=== PATIENT | male | born 1990 | race Caucasian/White ===

== ENCOUNTER 2020-03-09 12:35 | Emergency (ER) | payer BC, SELFPAY ==
--- NOTE | ~2020-03-09 | XR_ITS ---
EXAMINATION: XR sinus min 3V EXAM DATE: 03/09/2020 13:07 INDICATION: Cold for 2 weeks, congestion. TECHNIQUE: Frontal, Jose's, lateral projections of the paranasal sinuses. There is no prior study for comparison. FINDINGS: Possible mild bilateral maxillary sinus mucoperiosteal thickening. The other sinuses are we ll aerated. No appreciable sinus fluid. Orbits and soft tissues are unremarkable. IMPRESSION: Possible mild bilateral sinus mucoperiosteal thickening, otherwise sinuses appear well-a erated. Reviewed, dictated and finalized at location A. E FEDERAL RELATIONS DEPUTY DIRECTOR IMPRESSION: Possible mild bilateral sinus mucoperiosteal thickening, otherwise sinuses appear well-aerated.
--- NOTE | ~2020-03-09 | XR_ITS ---
EXAMINATION: XR chest 2V EXAM DATE: 03/09/2020 13:06 INDICATION: Congestion for 2 weeks. TECHNIQUE: Frontal and lateral projections of the chest obtained and reviewed. There is no prior bogdan dy for comparison. FINDINGS: Left upper lobe granulomata. The lungs are otherwise clear. There are no pleural effusions . The cardiomediastinal silhouette is within normal limits. There is no pneumothorax suspected. Th e bones and soft tissues are unremarkable. IMPRESSION: No acute cardiopulmonary findings. Reviewed, dictated and finalized at location A. E SHOP ATTENDANT
[2020-03-09 12:42] VITALS: BP 134/58; PULSE 102; RESP 20; TEMP 36.8; O2SAT 100
--- NOTE | 2020-03-09 13:39 | ED.URI ---
HPI - URI/Sore Throat General Chief Complaint: Upper Respiratory Infection Stated Complaint: sinus infection / cold Source: RN notes reviewed History of Present Illness HPI Narrative: The patient, non-smoker/nondrinker with pets at home, presents with congestion. Patient states he has almost 2-week history of sl productive cough, sinus congestion despite OTC preparations. He had a negative Covid test this week[he declines repeat];no fever, headache now [but he had one the first day], no sore throat, loss of taste/smell, CP, wheezing [but he would like a refill of his childhood inhalers]. Symptoms are mild, worse at night when first supine. Related Data Allergies Allergy/AdvReac Type Severity Reaction Status Date / Time No Known Allergies Allergy Verified 03/09/20 13:42 Review of Systems Review of Systems: Narrative: The patient has been informed that they may have pre-hypertension or Hypertension based on a BP reading in the department. I recommend that the patient call the primary care provider listed on their discharge instructions or a physician of their choice this week to arrange follow up for further evaluation of possible pre-hypertension or Hypertension General/Constitutional: No weight loss,fever Eyes: N0: Redness,discharge Ears/Nose/Throat: No: Epistaxis,ear discharge Respiratory: Denies: Hemoptysis Gastrointestinal: No Vomiting, Bleeding-rectal Skin: No Lumps, eruption Neurologic: No Focal Weakness,Sz Hematologic: Denies: Petechiae/Purpura Psychiatric: No: Suicida ideationl All Other Systems: Reviewed and Negative PMFSH Social History Social History Gender identity (if verbalized by the patient): Male Comments At time of signature, agree with nursing past medical, surgical, social and family history. There is no relevant family history pertinent to the presenting complaint Exam Narrative: Exam Narrative: General Appearance: Well appearing, Well nourished EYE: PERRLA, Conjunctiva clear Nose: Rhinorrhea, Mucousal erythema Mouth/Throat: MM moist, Uvula midline, Pharyngeal erythema Neck: Supple, No adenopathy Respiratory: No respiratory distress, airway patent Cardiovascular: RRR, No JVD Musculoskeletal: Non tender, Normal strength Skin: Warm, Dry Neurological: A&O x3, CN II-XII intact Psychiatric: Normal mood, Normal affect Course Vital Signs Vital signs: Vital Signs Temperature 98.3 F 03/09/20 12:42 Pulse Rate 102 H 03/09/20 12:42 Respiratory Rate 20 03/09/20 12:42 Blood Pressure 134/58 L 03/09/20 12:42 Pulse Oximetry 100 03/09/20 12:42 Temperature 98.3 F 03/09/20 12:42 Pulse Rate 102 H 03/09/20 12:42 Respiratory Rate 20 03/09/20 12:42 Blood Pressure 124/77 03/09/20 13:52 Pulse Oximetry 100 03/09/20 12:42 Discharge Plan Discharge Clinical Impression: Upper respiratory infection Qualifiers: URI type: unspecified URI Qualified Code(s): J06.9 - Acute upper respiratory infection, unspecified Patient Disposition: Home, Self-Care Condition: Stable Instructions: Antibiotic Form, Acute Bronchitis (ED) Prescriptions: New codeine-guaifenesin 10-100 mg/5 mL liquid 7.5 ml PO Q6H PRN (Reason: cough) Qty: 118 RF: 0 azelastine 137 mcg (0.1 %) aerosol,spray 137 mcg NASAL Q12H Qty: 30 RF: 0 azithromycin 250 mg tablet See Rx Instructions .ROUTE .COMPLEX Qty: 6 RF: 0 benzonatate [Tessalon Perles] 100 mg capsule 100 mg PO TID Qty: 20 RF: 1 albuterol sulfate [Ventolin HFA] 90 mcg/actuation HFA aerosol inhaler 2 puff INHALATION QID PRN (Reason: shortness of breath or wheezing) Qty: 1 RF: 1 Follow-up/Referrals: PHYSICIAN,APPLIED PSYCHOLOGY CHAIR [Primary Care Provider] -
[2020-03-09 13:52] VITALS: BP 124/77
== END 2020-03-09 13:52 | disposition home or self-care (01) ==
PROVIDERS: Emergency Provider Emergency Medicine
DX: J06.9 Acute upper respiratory infection, unspecified (principal); K21.9 Gastro-esophageal reflux disease without esophagitis
CPT/HCPCS: 70220; 71046; 99213; G0463

== ENCOUNTER 2020-03-27 09:58 | Emergency (ER) | payer BC, SELFPAY ==
[2020-03-27 10:08] VITALS: BP 145/88; PULSE 90; RESP 20; TEMP 36.4; O2SAT 100
--- NOTE | 2020-03-27 10:50 | PC.NURSE ---
NO CULTURE PER PROVIDER.
--- NOTE | 2020-03-27 11:03 | ED.MALEGU ---
HPI - Male Genitourinary General Chief complaint: Urogenital-Male Stated complaint: Urogenital-Male Time Seen by Provider: 03/27/20 10:48 Source: patient and RN notes reviewed Mode of arrival: ambulatory Limitations: no limitations History of Present Illness HPI Narrative: Patient presents today complaining of a 1 week history of intermittent difficulty initiating urine flow as well as waxing and waning dysuria. He also reports some random discomfort in his penis that only last for a couple of seconds per episode and is spontaneous in nature. Denies hematuria, penile discharge or lesions. Denies abdominal pain, back pain, fever, pain in the testicle or scrotum. Patient is and is monogamous. He believes his is monogamous as well. States that at a point in his symptoms it did feel similar to when he had an STD in high school but states that he would like tested, even though he does not really have concerns about sexually transmitted infections. MD Complaint: dysuria Related Data Home Medications Medication Instructions Recorded Confirmed esomeprazole magnesium [Nexium] 40 mg PO DAILY 03/27/20 03/27/20 multivitamin [Daily Multivitamin] 1 tablet PO DAILY 03/27/20 03/27/20 Allergies Allergy/AdvReac Type Severity Reaction Status Date / Time No Known Allergies Allergy Verified 03/27/20 10:24 Review of Systems Review of Systems: Narrative: CONSTITUTIONAL: Denies body aches, fever, chills, or sweats. EYES: Denies visual changes, redness, or discharge. ENT: Denies rhinorrhea, congestion, sore throat, or otalgia. CARDIOVASCULAR: Denies chest pain, palpitations, or edema. RESPIRATORY: Denies cough or dyspnea. GASTROINTESTINAL: Denies abdominal pain, nausea, vomiting, or diarrhea. GENITOURINARY: Denies hematuria. + Dysuria, difficulty initiating urine stream, intermittent penile pain SKIN: Denies rash, itching, or wounds. MUSCULOSKELETAL: Denies back pain, joint pain, or myalgia. NEUROLOGIC: Denies headache, numbness, tingling, or weakness. PSYCH: Denies depression or anxiety. [facility] Past Medical History Medical History (Updated 03/27/20 @ 11:22 by Lacy Gaitan, BEAD INSPECTOR, BC) GERD (gastroesophageal reflux disease) Social History Social History Gender identity (if verbalized by the patient): Male Comments At time of signature, I have reviewed and agree with nursing past medical, surgical, social and family history unless otherwise noted. Please see nursing chart for further information. There is no relevant family history pertinent to the presenting complaint Exam Narrative: Exam Narrative: GENERAL: Well-appearing, well-nourished, and in no acute distress. HEAD: Normocephalic, atraumatic. EYES: EOMI. No redness or drainage. Conjunctivae normal. ENT: Mucous membranes pink and moist. NECK: Normal AROM. CHEST: No respiratory distress. ABDOMEN: nondistended : Deferred. EXTREMITIES: Normal range of motion. No edema. SKIN: Warm, dry, no rash. Capillary refill normal. Normal skin turgor. NEURO: No focal deficits. Alert and oriented x3. Gait steady. PSYCH: Normal affect. No signs of depression or anxiety. Course Vital Signs Vital signs: Vital Signs Temperature 97.6 F 03/27/20 10:08 Pulse Rate 90 03/27/20 10:08 Respiratory Rate 20 03/27/20 10:08 Blood Pressure 145/88 H 03/27/20 10:08 Pulse Oximetry 100 03/27/20 10:08 Temperature 97.6 F 03/27/20 10:08 Pulse Rate 90 03/27/20 10:08 Respiratory Rate 20 03/27/20 10:08 Blood Pressure 145/88 H 03/27/20 10:08 Pulse Oximetry 100 03/27/20 10:08 Reviewed. Pt has been instructed to follow up with his PCP regarding his elevated blood pressure today. MDM - Male Genitourinary Differential Diagnosis Differential diagnosis: Likely urinary tract infection, urethritis and other (Gonorrhea, chlamydia, trichomonas) Lab Data Attestation: I reviewed the patient's lab results. Labs: Urine Glucose Nega
[2020-03-27] MEDS: AZITHROMYCIN 250 MG TABLET 1000 MG PO (11:10)
[2020-03-27] MEDS: LIDOCAINE HCL 1% LOCAL INJ 20 ML VIAL IM (11:10)
[2020-03-27] MEDS: cefTRIAXone 250 MG VIAL IM (11:11)
== END 2020-03-27 11:35 | disposition home or self-care (01) ==
PROVIDERS: Emergency Provider Nurse Practitioner
DX: R30.0 Dysuria (principal); K21.9 Gastro-esophageal reflux disease without esophagitis
CPT/HCPCS: 81003; 87491; 87591; 87661; 96372; 99213; A9270; G0463; J0696

== ENCOUNTER 2021-06-11 12:25 | Outpatient (CLI) | payer BC, SELFPAY ==
--- NOTE | ~2021-06-11 | XR_ITS ---
XR chest 2V DATE: 06/11/2021 12:45 INDICATION: Asthma. Recent Covid infection, February 2021. Granulomata. TECHNIQUE: PA and lateral views COMPARISON: 03/09/2020 2 view chest FINDINGS: Normal heart size. No hilar or mediastinal enlargement. There is old granulomatous disease including calcified left upper lobe pulmonary granuloma and calcified left hilar nodes. No pulmonary infiltrate or consolidation, pleural effusion or pulmonary vascular congestion or pneumo thorax. Included skeletal structures are unremarkable. IMPRESSION: No active cardiopulmonary disease Reviewed, dictated and finalized at location A.
== END 2021-06-11 12:26 | disposition home or self-care (01) ==
PROVIDERS: PCP Internal Medicine; Visit Provider Clinical Nurse Specialist
DX: R93.89 Abnormal findings on diagnostic imaging of other specified body structures (principal)
CPT/HCPCS: 71046

== ENCOUNTER 2021-06-17 14:06 | Outpatient (CLI) | payer BC, SELFPAY ==
--- NOTE | 2021-06-24 12:26 | WPDHOLTEREM ---
Holter/Event Monitor Holter/Event Monitor Date of procedure: 06/17/21 Holter/Event Procedure: 48 Hr Holter Monitor Indications: Tachycardia Conclusion: 1. 48 hour holter monitor on 06/17/21. 2. Underlying rhythm is sinus rhythm. HR range 58-169 bpm; average HR 88 bpm. HR at 169 bpm was at 20:54. 3. There are 5 premature supraventricular complexes. No supraventricular tachycardia. 4. There are 33 premature ventricular complexes. No ventricular tachycardia. 5. No sinoatrial or atrioventricular blocks. No significant pauses greater than 2 seconds. 6. Patient reports symptoms of chest pain, heart flutter which demonstrate sinus rhythm, HR range 88-124 bpm.
== END 2021-06-17 14:07 | disposition home or self-care (01) ==
LOC: ANHCARD 14:09
PROVIDERS: PCP Internal Medicine; Visit Provider Clinical Nurse Specialist
DX: R00.0 Tachycardia, unspecified (principal)
CPT/HCPCS: 93225; 93226

== ENCOUNTER 2021-07-31 09:34 | Outpatient (CLI) | payer BC, SELFPAY ==
--- NOTE | 2021-07-31 09:40 | ECHO_ITS ---
Patient Info Name: Doug Lofton Age: 30 years : 1990 Gender: Male Ht: 74 in Wt: 270 lbs BSA: 2.57 m2 HR: 78 bpm BP: 131 / 84 mmHg Technical Quality: Fair Exam Date: 07/31/2021 9:54 AM Exam Location: [facility] Patient Status: Outpatient Admit Date: 07/31/2021 Staff Ordering Physician: Teresa Srivastava Wine Steward: Kavita Alvarado RDCS Attending Provider: Teresa Srivastava Referring Physician: Carola MEDINA; Exam Type: CA echo doppler color flow Study Info Indications R00.2 - Palpitations Complete two-dimensional, color flow and Doppler transthoracic echocardiogram is performed. Summary 1. Complete two-dimensional, color flow and Doppler transthoracic echocardiogram is performed. 2. Left ventricular chamber dimension is normal. 3. Left ventricular systolic function is normal, estimated at 60-65%. 4. The left ventricular diastolic function is normal. 5. E/e' 7 is not elevated. 6. Global longitudinal strain is abnormal at -14.9%. 7. No pulmonary hypertension, estimated pulmonary arterial systolic pressure is 23 mmHg. 8. The aortic root size at the sinus of Valsalva is borderline dilated at 4.0 cm. Left Ventricle E/e' 7 is not elevated. Global longitudinal strain is abnormal at -14.9%. Left ventricular chamber dimension is normal. Left ventricular systolic function is normal, estimated at 60-65%. The left ventricular diastolic function is normal. Right Ventricle Right ventricular systolic function is normal and with normal TAPSE 1.9 cm. Right ventricular chamber dimension is normal. Left Atria Left atrial chamber dimension is normal. Right Atria Right atrial chamber dimension is normal. Aortic Valve The aortic valve is trileaflet. There is no aortic valve stenosis. There is no aortic valve regurgitation. Pulmonic Valve There is no pulmonic regurgitation. Mitral Valve There is no mitral valve stenosis. There is no mitral valve regurgitation. Tricuspid Valve There is no tricuspid valve regurgitation. No pulmonary hypertension, estimated pulmonary arterial systolic pressure is 23 mmHg. Pericardium/Pleural There is no pericardial effusion. Inferior Vena Cava Normal inferior vena cava with >50% collapse upon inspiration consistent with normal right atrial pressure, 5 mmHg. Aorta The aortic root size at the sinus of Valsalva is borderline dilated at 4.0 cm. Left Ventricular Outflow Tract Name Value Normal LVOT 2D LVOT Diameter 2.0 cm LVOT Doppler LVOT Peak Gradient 4 mmHg LVOT Mean Gradient 2 mmHg LVOT VTI 19 cm LVOT VTI/AV VTI Ratio 1.2 LVOT Stroke Volume 59 ml LVOT CO 4.6 l/min LVOT CI 1.8 l/min/m2 Pulmonic Valve Name Value Normal LUIS Lynch
== END 2021-07-31 09:35 | disposition home or self-care (01) ==
LOC: ANHCARD 09:36
PROVIDERS: PCP Internal Medicine; Visit Provider Clinical Nurse Specialist
DX: R00.2 Palpitations (principal)
CPT/HCPCS: 93306

== ENCOUNTER → 2021-08-08 01:14 | Outpatient (CLI) | payer BC, SELFPAY ==
[2021-08-08 13:33] LABS: SARS-CoV-2 RNA PCR Negative
== END ==
PROVIDERS: PCP Internal Medicine; Visit Provider Clinical Nurse Specialist
DX: R50.9 Fever, unspecified (principal); Z20.822 Contact with and (suspected) exposure to COVID-19
CPT/HCPCS: C9803; U0003; U0005

== ENCOUNTER 2021-10-14 08:11 | Outpatient (CLI) | payer BC, SELFPAY ==
--- NOTE | 2021-10-27 19:33 | WPDHOMESLEEP ---
Sleep Study - Home Unattended Date of Study: 10/14/21 Ordering Provider: LINSEY Hernandez-Jeronimo Interpreting Provider: Meghan Lucia, DO Home Sleep Study Type: Apnea Link Air Height: 1.88 m Weight: 122.47 kg Body Mass Index: 34.7 Neck Circumference (inches): 16 [place]: 6 Reason for Sleep Study Tachycardia, snoring Sleep History The patient is a 30-year-old male with asthma, GERD and tachycardia that had a sleep study ordered by his primary care for evaluation of sleep apnea. 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 He has several family members that have sleep apnea. He denies awakening from sleep short of breath. He denies awakening at night with heartburn, belching or cough. He frequently snores and is occasionally loud enough that others complain. He frequently has trouble sleeping when he has a cold. He denies waking up gasping for air throughout the night. He denies having breathing problems at night observed by himself or others. He denies sweating excessively at night. He denies having heart palpitations or irregular heartbeats during the night. He rarely falls asleep during the day and never falls asleep while driving. He denies sleep paralysis, cataplexy and hypnagogic / hypnopompic hallucinations. He denies having trouble at school or work due to sleepiness. He denies feeling afraid of going to sleep. He rarely has nightmares. He rarely remembers his dreams. He frequently has thoughts racing through his mind. He occasionally feels sad or depressed. He occasionally has anxiety. He denies having muscular tension. He occasionally notices parts of his body jerk. He rarely kicks during the night. He denies having crawling and aching feelings in his legs as well as leg pain during the night. He constantly grinds his teeth during sleep and constantly awakens with morning jaw pain. He denies being bothered by pain during the day and denies being awakened by pain during the night. He denies waking up feeling stiff in the morning. He rarely wakes up with sore achy muscles. He frequently wakes up with pain in the neck, spine and other joints. He goes to bed at midnight on weekdays and at 2:00 a.m. on the weekends. It takes him over an hour to fall asleep. He wakes up 1-2 times throughout the night to check on kids, get a drink and play on his phone if he can not fall asleep within 20 minute. Most of the time he is able to fall asleep within 5 minutes. He wakes up at 7:30 a.m. on weekdays and at 9:00 a.m. on the weekends. He typically gets 6-7 hours of sleep per night. He stays in bed for less than 15 minutes after waking up in the morning. He currently lives with his and 2 kids. He will drink caffeinated beverages within 2 hours of bedtime. He does not engage in physical exercise before bedtime. He will watch television before falling asleep. He denies taking naps in the afternoon or the evening. He drinks 5 caffeinated beverages per day. He denies tobacco, alcohol and recreational drug use. [facility] Past Medical History Medical History Asthma GERD (gastroesophageal reflux disease) Inguinal hernia Surgical History Surgical History H/O inguinal hernia repair History of appendectomy Family History Family History Father Hypertension Mother Depression Anxiety Heart problem Thyroid disorder Glaucoma Sibling Levar's disease CHF (congestive heart failure) Grandparent Cancer Social History Social History Smoking status: Never smoker Alcohol intake: current Substance use: never Additional occupation/education comments: [employer] Gender identity (if verbalized by the patient): Male Medications Home Medications Me
[2021-10-27 19:50] VITALS: BMI 34.7
--- NOTE | 2023-03-18 10:29 | SLEEP ---
pt stated he was discharged from dr and lost machine
== END 2021-10-15 13:28 | disposition home or self-care (01) ==
LOC: ANHCSM 08:14
PROVIDERS: PCP Internal Medicine; Visit Provider Clinical Nurse Specialist
DX: G47.00 Insomnia, unspecified (principal)
CPT/HCPCS: 95806

== ENCOUNTER 2022-08-21 08:29 | Emergency (ER) | payer OTHER, SELFPAY ==
[2022-08-21 08:54] VITALS: BP 123/72; PULSE 82; RESP 16; TEMP 36.8; O2SAT 99
--- NOTE | 2022-08-21 08:59 | ED.GENADULT ---
HPI - General Adult General Chief complaint: Extremity Injury, Upper Stated complaint: WC right shoulder injury History of Present Illness HPI narrative: 31-year-old male presents to the [facility] today complaining of right shoulder injury. Patient stated on Wednesday he was at work getting a computer down from a shelf. The patient was on the ground ball his co-worker was on top of a ladder inset the computer on its top of the ladder when the computer accidentally tipped over and the patient went to reach to catch it in extended his right shoulder injuring it while trying to get the computer. Patient denies any other injuries. Patient states his right shoulder pain only occurs when he reaches across his body. Patient denies any numbness, tingling, shooting pain. Patient has been using ice for pain. Related Data Home Medications Medication Instructions Recorded Confirmed multivitamin 1 tablet PO DAILY 03/27/20 08/21/22 Allergies Allergy/AdvReac Type Severity Reaction Status Date / Time No Known Allergies Allergy Verified 08/21/22 09:01 Review of Systems Review of Systems: CONSTITUTIONAL: Denies fever, chills, or sweats. EYES: Denies visual changes, redness, or discharge. ENT: Denies otalgia and sore throat CARDIOVASCULAR: Denies chest pain, palpitations, or edema. RESPIRATORY: Denies cough or dyspnea. GASTROINTESTINAL: Denies abdominal pain, nausea, vomiting, or diarrhea. GENITOURINARY: Denies dysuria or hematuria. SKIN: Denies rash or itching. MUSCULOSKELETAL: Denies back pain. Positive for right shoulder pain with movement. NEUROLOGIC: Denies headache, numbness, or weakness. Pertinent positives per HPI. [facility] Past Medical History Medical History (Updated 08/21/22 @ 09:21 by Martha Estrada APRN) Asthma GERD (gastroesophageal reflux disease) Inguinal hernia Surgical History Surgical History H/O inguinal hernia repair History of appendectomy Family History Family History Father Hypertension Mother Depression Anxiety Heart problem Thyroid disorder Glaucoma Sibling Levar's disease CHF (congestive heart failure) Grandparent Cancer Social History Social History Smoking status: Never smoker Alcohol intake: current Substance use: never Lack of Transportation: No Lack of Food: Never True Current Housing: I Have Housing Concerned About Future Housing: No Difficulty Paying Gas/Electric Bills: No Difficulty Paying for Meds: No Currently Unemployed: No Education: Bachelor's Degree Difficulty w/ Childcare or Family Care: No Living arrangements: with family Occupation/Education: occupation 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 There is no relevant family history pertinent to the patient complaint. Exam Narrative: GENERAL: This is a well-nourished, well-developed patient, in no apparent distress. HEAD: normocephalic, atraumatic. EYES: Sclera clear/white. Vision is grossly intact. EARS: External ears normal, auditory canals clear and without drainage, TMs normal without perforation. Hearing grossly intact. NOSE: External nose normal with no obvious nasal discharge, nares without redness, no rhinorrhea. THROAT: Mucous membranes moist, posterior pharynx clear. NECK: Neck supple, non-tender without lymphadenopathy, masses or thyromegaly. CARDIOVASCULAR: Regular rate and rhythm without murmurs, gallops, or rubs. RESPIRATORY: Clear to auscultation. Breath sounds equal bilaterally. No wheezes, rales, or rhonchi. GASTROINTESTINAL: Abdomen soft, non-tender, nondistended. Bowel
== END 2022-08-21 09:22 | disposition home or self-care (01) ==
PROVIDERS: Emergency Provider Nurse Practitioner Family; PCP Internal Medicine
DX: S49.91XA Unspecified injury of right shoulder and upper arm, initial encounter (principal); X50.0XXA Overexertion from strenuous movement or load, initial encounter; J45.909 Unspecified asthma, uncomplicated; K21.9 Gastro-esophageal reflux disease without esophagitis
CPT/HCPCS: 99212; G0463

== ENCOUNTER → 2022-09-02 08:41 | Outpatient (CLI) | payer OTHER, SELFPAY ==
--- NOTE | ~2022-09-02 | XR_ITS ---
Right Shoulder Technique: AP and axillary views were obtained. Clinical History: Injury Findings: No fracture or dislocation is seen. Osseous alignment is anatomic. The glenohumeral and acr omioclavicular joint spaces are preserved. Soft tissues are unremarkable. Impression: Unremarkable right shoulder radiographs. Reviewed, dictated and finalized at [facility]. Impression: Unremarkable right shoulder radiographs.
== END ==
PROVIDERS: PCP Clinical Nurse Specialist; Visit Provider Clinical Nurse Specialist
DX: S49.91XA Unspecified injury of right shoulder and upper arm, initial encounter (principal); X58.XXXA Exposure to other specified factors, initial encounter
CPT/HCPCS: 73030

== ENCOUNTER → 2022-09-21 14:54 | Outpatient (CLI) | payer OTHER, SELFPAY ==
--- NOTE | ~2022-09-21 | MR_ITS ---
EXAMINATION: MR shoulder RT wo con DATE: 09/21/2022 15:26 INDICATION: Right shoulder and upper arm pain TECHNIQUE: Magnetic resonance imaging (MRI) of the right shoulder was performed without intravenous c ontrast. Sequences included axial PD-weighted FS FSE, coronal oblique PD-weighted FS FSE, coronal obl ique T2-weighted FS FSE, sagittal PD-weighted FS FSE, and sagittal T1-weighted SE. COMPARISON: None. FINDINGS: Coracoacromial arch: The acromion undersurface is curved in morphology (type II). The coracoacromial ligament is normal. A cromioclavicular joint is normal. Rotator cuff: Mild tendinopathy without tear at the distal supraspinatus tendon. The infraspinatus and teres minor tendons are normal. Mild tendinopathy and very small intrasubstance longitudinal split tear along the cephalad aspect of the subscapularis tendon. Normal rotator cuff muscle bulk and signal. Biceps tendon, glenoid labrum and glenohumeral cartilage: Long head of the biceps tendon is normal. Glenoid labrum is normal. Glenohumeral cartilage is normal. Fluid: Physiologic amount of fluid in the glenohumeral joint and biceps tendon sheath. No loose osteochondr al bodies. Small amount of fluid in the subacromial/subdeltoid bursa consistent with minimal bursitis . Bones: Normal marrow signal with no edema, fracture or abnormal marrow replacing process. IMPRESSION: 1. Mild subscapularis and supraspinatus tendinopathy with very small intrasubstance longitudinal spli t tear at the cephalad aspect of the distal subscapularis tendon. 2. Minimal subacromial/subdeltoid bursitis. Reviewed, dictated and finalized at location A. IMPRESSION: 1. Mild subscapularis and supraspinatus tendinopathy with very small intrasubst ance longitudinal split tear at the cephalad aspect of the distal subscapularis tendon. 2. Minimal subacromial/subdeltoid bursitis.
== END ==
PROVIDERS: PCP Clinical Nurse Specialist; Visit Provider Clinical Nurse Specialist
DX: S49.91XA Unspecified injury of right shoulder and upper arm, initial encounter (principal); X58.XXXA Exposure to other specified factors, initial encounter; M75.51 Bursitis of right shoulder
CPT/HCPCS: 73221

== ENCOUNTER 2022-12-16 16:50 | Emergency (ER) | payer OTHER, SELFPAY ==
--- NOTE | ~2022-12-16 | XR_ITS ---
EXAMINATION: XR chest 2V Exam Date/Time: 12/16/2022 17:14 CDT HISTORY: WHEEZING,COUGH SINCE COVID X 2 MONTHS Comparison: 06/11/2021. RESULT: Lines, tubes, and devices: None. Lungs and pleura: Clear. Calcified left upper lung granuloma. Cardiomediastinal silhouette: Stable. Calcified hilar nodes. Other: No acute osseous or upper abdominal finding. IMPRESSION: No acute cardiopulmonary process. Reviewed, dictated and finalized at location K.
[2022-12-16 16:55] VITALS: BP 132/86; PULSE 84; RESP 20; TEMP 36.9; O2SAT 100
--- NOTE | 2022-12-16 16:56 | ED.GENADULT ---
HPI - General Adult General Chief complaint: Upper Respiratory Infection Stated complaint: Whizzing and Cough Source: patient and RN notes reviewed History of Present Illness HPI narrative: 32 yo M presents to urgent care with complaints of wheezing, mostly at nighttime, for the last 3 days. Pt states he has been coughing for quite some time and knows for sure he was coughing 2 weeks after he was testing negative for Covid. Pt tested + for covid a couple months ago. Pt is denying any fevers, chills, chest pain, SOB, vomiting. Pt has been taking OTC cough meds with minimal relief. Pt is also reporting an itchy rash that started yesterday on his right arm, AC area that has now spread to his whole right forearm, volar side. Denies any exposure to poison eliane that he knows of. Related Data Home Medications Medication Instructions Recorded Confirmed multivitamin 1 tablet PO DAILY 03/27/20 09/07/22 Allergies Allergy/AdvReac Type Severity Reaction Status Date / Time No Known Allergies Allergy Verified 09/04/22 10:02 Review of Systems Review of Systems: Pertinent positives and pertinent negatives per HPI. [facility] Past Medical History Medical History Asthma GERD (gastroesophageal reflux disease) Inguinal hernia Surgical History Surgical History H/O inguinal hernia repair History of appendectomy Family History Family History Father Hypertension Mother Depression Anxiety Heart problem Thyroid disorder Glaucoma Sibling Levar's disease CHF (congestive heart failure) Grandparent Cancer Social History Social History Smoking status: Never smoker Alcohol intake: current Substance use: never Lack of Transportation: No Lack of Food: Never True Current Housing: I Have Housing Concerned About Future Housing: No Difficulty Paying Gas/Electric Bills: No Difficulty Paying for Meds: No Currently Unemployed: No Education: Bachelor's Degree Difficulty w/ Childcare or Family Care: No Living arrangements: with family Occupation/Education: occupation 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 There is no relevant family history pertinent to the patient complaint. Exam Narrative: GENERAL: This is a well-nourished, well-developed patient, in no apparent distress. HEAD: normocephalic, atraumatic. EYES: Sclera clear/white. Vision is grossly intact. EARS: External ears normal, auditory canals clear and without drainage. Hearing grossly intact. NOSE: External nose normal with no obvious nasal discharge, nares without redness, no rhinorrhea. THROAT: Mucous membranes moist, posterior pharynx clear. NECK: Neck supple, non-tender without lymphadenopathy, masses or thyromegaly. CARDIOVASCULAR: Regular rate and rhythm without murmurs, gallops, or rubs. RESPIRATORY: Clear to auscultation. Breath sounds equal bilaterally. No wheezes, rales, or rhonchi. SKIN: erythremic, blisters and papules to right volar FA and AC area. NEURO: awake, alert, and oriented to person, place and time. There were no obvious focal neurologic abnormalities. Course Course Level of Care: Express Care Visit Vital Signs Vital signs: Vital Signs Temperature 98.4 F 12/16/22 16:55 Pulse Rate 84 12/16/22 16:55 Respiratory Rate 20 12/16/22 16:55 Blood Pressure 132/86 12/16/22 16:55 Pulse Oximetry 100 12/16/22 16:55 Oxygen Delivery Room Air 12/16/22 16:55 Temperature 98.4 F 12/16/22 16:55 Pulse Rate 84 12/16/22 16:55 Respiratory Rate 20 12/16/22 16:55 Blood P
== END 2022-12-16 17:35 | disposition home or self-care (01) ==
PROVIDERS: Emergency Provider Nurse Practitioner Family; PCP Clinical Nurse Specialist
DX: J40 Bronchitis, not specified as acute or chronic (principal); L25.9 Unspecified contact dermatitis, unspecified cause
CPT/HCPCS: 71046; 99213; G0463

== ENCOUNTER 2024-02-07 00:09 | Day surgery (SDC) | payer OTHER, SELFPAY ==
[2024-02-01 14:38] VITALS: BMI 34.7
--- NOTE | 2024-02-01 14:44 | PC.NURSE ---
Report to the Outpatient Waiting Room, entrance under the green pavilion located off [facility], at time _0600_ on date _[id number]_. Planned Procedure Time: _0730_.? Time changes happen often and if your time is changed the preop area will call you the afternoon before. - You and your visitor will be asked to self-screen and do not enter if you have any COVID symptoms. Please call surgeon if you need to reschedule. - A mask is optional within the hospital at this time. Patients may have clear liquids (water, carbonated beverages, clear teas, apple juice) until 3 hours prior to surgery with a maximum of 20 ounces. - No food from midnight until time of surgery and no smoking. This includes no chewing gum, candy or mints. Take only the following medications with a SIP of water on the morning of surgery: ___None___ DO NOT STOP ANY OF YOUR OTHER PRESCRIPTION MEDICATIONS PRIOR TO SURGERY EXCEPT THE FOLLOWING Medications to discontinue per physician ___Vitamin Date to take last anhi___[id number]__ Please no make-up, nail pakistani, hairspray, perfume, deodorant, or body powder the day of surgery.? No jewelry (including any body piercings) or valuables the day of surgery, leave them at home.? Please take a shower or bath the night before, or the morning of, surgery with an antibacterial soap.? Wear comfortable, loose fitting clothing.? - Jewelry must be removed prior to entering the operating room.? Rings and piercings that are not removed may be cut off. - The hospital will not accept responsibility for valuables.? - Please leave all valuables, including medications, at home the day of surgery. If you are going home after surgery, a licensed otr owner operator truck driver must drive you home.? - NO public transportation without another adult if you receive anesthesia. - We recommend that an adult stay with you for 24 hours following discharge. - We also recommend that you do not drive, make important decision, drink alcoholic beverages, or take any drugs that were not prescribed by your health care provider for at least 24 hours after your discharge time. Follow any additional instructions given to you from your surgeon. Telephone instructions given to _Doug___and asked if any additional questions and then verbalized understanding. Patient advised to call surgeon office or pre surgery nurse liaison [phone] if any additional questions.
[2024-02-07] VITALS (10 sets, daily range): BP systolic 117–141; BP diastolic 73–88; PULSE 78–90; RESP 14–18; TEMP 36.5–36.8; O2SAT 94–100; BMI 34.8
[2024-02-07] MEDS: KETOROLAC 15 MG/ML VIAL (*BKC) IV PUSH (06:45)
[2024-02-07] MEDS: ACETAMINOPHEN 500 MG TABLET 1000 MG PO (06:45)
[2024-02-07] MEDS: LACTATED RINGERS 1,000 ML 30 ML IV CONT ×2 (06:49→08:44)
--- NOTE | 2024-02-07 06:53 | P.PNAN_ITS ---
Anes - Initial Pre Proc Eval Procedure: Operation Date: 02/07/24 07:30 Proposed Procedures p Open Umbilical Hernia Repair with Possible Mesh - Mayela Archuleta MD Date/Time: 02/07/24 06:53 Surgeon: Mayela Archuleta MD Pre Op Diagnosis: Umb Hernia 3cm Patient Data Age: 33 Gender: M Height: 1.88 m Weight: 123.1 kg Last Vital Signs Temp 97.7 F 02/07/24 06:08 Pulse 86 02/07/24 06:08 Resp 16 02/07/24 06:08 BP 117/74 02/07/24 06:08 Pulse Ox 98 02/07/24 06:08 O2 Del Method Room Air 02/07/24 06:08 Allergies Allergy/AdvReac Type Severity Reaction Status Date / Time No Known Allergies Allergy Verified 02/07/24 06:14 Home Medications Medication Instructions Recorded Confirmed Type multivitamin 1 tablet PO DAILY 03/27/20 02/07/24 History Nexium 20 mg capsule,delayed 20 mg PO DAILY 3 months #90 caps 04/20/22 02/07/24 Rx release (esomeprazole magnesium) albuterol sulfate 90 mcg/actuation 2 puff inhalation QID PRN 12/16/22 02/01/24 Rx aerosol inhaler shortness of breath or wheezing #8.5 grams Patient hx anesthesia problems: none Family hx anesthesia problems: none Results Review: All pre-operative results and documents have been reviewed as part of the pre- operative evaluation. [facility] Past Medical History Medical History Asthma GERD (gastroesophageal reflux disease) Inguinal hernia Surgical History Surgical History H/O inguinal hernia repair History of appendectomy Family History Family History Father Hypertension Mother Depression Anxiety Heart problem Thyroid disorder Glaucoma Sibling Levar's disease CHF (congestive heart failure) Grandparent Cancer Social History Social History Smoking status: Never smoker Alcohol intake: current Substance use: never Do You Feel Safe in your Home?: Yes Lack of Transportation: No Lack of Food: Never True Current Housing: I Have Housing Concerned About Future Housing: No Difficulty Paying Gas/Electric Bills: No Difficulty Paying for Meds: No Currently Unemployed: No Education: Bachelor's Degree Difficulty w/ Childcare or Family Care: No Living arrangements: with family Occupation/Education: occupation 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 TRAE mild per pt and he was unable to tolerate CPAP, recently dx hyperlipidemia. Pt reports he can walk 1-2 fos, no cp or sob. Informed Consent: The patient's anesthetic plan and its attendant risks and benefits were discussed with the patient/family/POA. Questions were solicited and answers provided to the satisfaction of the patient/family/POA.
--- NOTE | 2024-02-07 07:16 | PM.IMHP ---
H&P: HPI History of Present Illness Date/Time: 02/07/24 07:16 Chief Complaint: umbilical hernia Narrative: Doug is a 33 y/o male who presents to the office at the request of Teresa OSORIO for evaluation of a umbilical hernia. Patient states he noticed a bulge at his umbilicus 8 months ago following a coughing episode that had gradually increased in size. Also reports occasional umbilical discomfort. Denies any issues with BM's. Review of Systems Review of Systems: All systems reviewed & are unremarkable except as noted in HPI and below PMFSH Past Medical History Medical History Asthma GERD (gastroesophageal reflux disease) Inguinal hernia Surgical History Surgical History H/O inguinal hernia repair History of appendectomy Family History Family History Father Hypertension Mother Depression Anxiety Heart problem Thyroid disorder Glaucoma Sibling Levar's disease CHF (congestive heart failure) Grandparent Cancer Social History Social History Smoking status: Never smoker Alcohol intake: current Substance use: never Do You Feel Safe in your Home?: Yes Lack of Transportation: No Lack of Food: Never True Current Housing: I Have Housing Concerned About Future Housing: No Difficulty Paying Gas/Electric Bills: No Difficulty Paying for Meds: No Currently Unemployed: No Education: Bachelor's Degree Difficulty w/ Childcare or Family Care: No Living arrangements: with family Occupation/Education: occupation Additional occupation/education comments: [employer] Gender identity (if verbalized by the patient): Male Spiritual care concerns: No Meds Home Medications and Allergies Home Medications Medication Instructions Recorded Confirmed Type multivitamin 1 tablet PO DAILY 03/27/20 02/07/24 History Nexium 20 mg capsule,delayed 20 mg PO DAILY 3 months #90 caps 04/20/22 02/07/24 Rx release (esomeprazole magnesium) albuterol sulfate 90 mcg/actuation 2 puff inhalation QID PRN 12/16/22 02/01/24 Rx aerosol inhaler shortness of breath or wheezing #8.5 grams Allergies Allergy/AdvReac Type Severity Reaction Status Date / Time No Known Allergies Allergy Verified 02/07/24 06:14 Vital Signs Vital Signs - 24 hr 02/07/24 06:08 Temperature 36.5 C Pulse Rate 86 Respiratory Rate 16 Blood Pressure 117/74 Pulse Oximetry 98 Oxygen Delivery Room Air Exam Const: General: cooperative, comfortable and no acute distress Resp: Auscultation: clear to auscultation bilaterally Cardio: Rate: regular rate Rhythm: regular rhythm GI: Inspection: normal to inspection, distended and visible herniation GI Palp: No abdominal tenderness, Yes Soft to palpation, No Tenderness to palpation present (GI), No Guarding due to palpation present (GI), No Rigid due to palpation and Yes Hernia present Assessment and Plan Assessment and plan (1) Umbilical hernia: Qualifiers: Obstruction and gangrene presence: without obstruction or gangrene Qualified Code(s): K42.9 - Umbilical hernia without obstruction or gangrene Code(s): K42.9 - Umbilical hernia without obstruction or gangrene Status: Acute Assessment and Plan: will setup for umbilical hernia repair c mesh
--- NOTE | 2024-02-07 07:18 | WPDHPUPDATE1 ---
History and Physical Update Update Date/Time: 02/07/24 07:18 History and Physical has been reviewed, including an updated exam of the patient. There are NO changes in the patient's condition. Risks, benefits, and alternatives have been discussed and questions answered. Patient agrees to proceed with procedure.
[2024-02-07] MEDS: ceFAZolin 3 GM/D5W 100 ML 100 ML IVPB (07:29)
[2024-02-07] MEDS: BUPIVACAINE/EPINEPHRINE 0.5% 50 ML VIAL 30 ML INFILTRATE (07:48)
--- NOTE | 2024-02-07 08:26 | P.OP_ITS ---
Procedure Note - Detailed Date of Procedure 02/07/24 Pre-op Diagnosis Incarcerated umbilical hernia with defect measuring 3 cm Post-op Diagnosis Same Procedure Performed repair of incarcerated umbilical hernia with mesh, defect measuring 3 cm Surgeon Mayela Archuleta MD Anesthesia General and Local Indications 33 y/o M c incarcerated umbilical hernia Findings incarcerated umbilical hernia c omentum and adjacent loop of SB Description of Procedure The patient was taken to the operating room placed in the supine position. After adequate induction of general anesthesia, the patient was prepped and draped in the normal sterile fashion. A time-out was then done to verify the patient's identity, as well as the procedure being performed. I began by localizing the area around the umbilicus. I then made a curvilinear incision in the infraumbilical fold. This was taken down to level fascia. I then was able to bluntly dissect around the umbilicus. I then carefully dissected the umbilicus off the underlying fascia and hernia sac. I then excised the hernia sac and examined the contents of the hernia. There was some inflamed omentum that was viable and some adjacent small intestine that was completely unremarkable. I was able to mobilize the incarcerated tissue and reduce it back into the abdominal cavity. This left an approximately 3 cm defect. I then placed a 4.6 cm round piece of ventralex mesh in the underlay position. This was noted to have good, wide local coverage of the defect. I then closed this defect primarily with interrupted 0 Ethibond suture over the underlay mesh repair. I then reapproximated the umbilicus to the fascia with a 3 0 Vicryl U- stitch. The subcutaneous tissue was then closed with 3 0 Vicryl suture. The skin was closed with 4 0 Monocryl subcuticular suture. Dermabond was then placed on the wound. The patient tolerated the procedure well was extubated in the operating room postop. He will be transferred to the recovery room in stable condition. Implants 4.6 cm ventralex mesh in underlay position Estimated Blood Loss 10 Drains No Packing No Pathology Yes Complications No immediate complications Condition Stable Disposition PACU [facility] Billing Surgery - Charge Forward: Surgery Billing
[2024-02-07] MEDS: fentaNYL CITRATE INJ (*CRX) 100 MCG/2 ML VIAL 25 MCG IV PUSH (08:49)
[2024-02-07] MEDS: oxyCODONE HCL (*CRX) 5 MG TAB IR PO (09:52)
== END 2024-02-07 10:45 | disposition home or self-care (01) ==
PROVIDERS: PCP Clinical Nurse Specialist; Visit Provider Surgery
PROC: (CPT 49594; principal; 2024-02-07 07:30)
DX: K42.0 Umbilical hernia with obstruction, without gangrene (principal); J45.909 Unspecified asthma, uncomplicated; K21.9 Gastro-esophageal reflux disease without esophagitis; Z79.51 Long term (current) use of inhaled steroids; E66.9 Obesity, unspecified; Z68.34 Body mass index [BMI] 34.0-34.9, adult
CPT/HCPCS: 49594; 88302; A9270; C1781; J0690; J1100; J1885; J2003; J2250; J2405; J2704; J3010; J7120

== ENCOUNTER 2024-03-07 09:18 | Emergency (ER) | payer OTHER, SELFPAY ==
--- NOTE | 2024-03-07 09:20 | ED_ITS ---
HPI - URI/Sore Throat General Chief Complaint: Upper Respiratory Infection Stated Complaint: cough/nose Time Seen by Provider: 03/07/24 09:49 Source: patient and RN notes reviewed Mode of arrival: ambulatory Limitations: no limitations History of Present Illness HPI Narrative: 33-year-old male presents concern for 3 day history of cough, sinus congestion. Reports he started have productive cough. He denies fever, aches, chills, sweats. He denies taking any medications for his symptoms. MD elicited complaint: nasal congestion and sinus pain Related Data Home Medications ?Medication ?Instructions ?Recorded ?Confirmed ?Last Taken ?Type multivitamin 1 tablet PO DAILY 03/27/20 03/01/24 02/03/24 History epinephrine 0.15 mg/0.3 mL 0.15 mg IM Q30M PRN 03/01/24 03/01/24 Unknown History injection,auto-injector Allergies Allergy/AdvReac Type Severity Reaction Status Date / Time No Known Allergies Allergy Verified 03/07/24 09:45 Review of Systems Review of Systems: CONSTITUTIONAL: Denies malaise, chills, sweats, or fever. EYES: Denies visual changes, redness, or discharge. ENT: Reports rhinorrhea, congestion, and sore throat. CARDIOVASCULAR: Denies chest pain, palpitations, or edema. RESPIRATORY: Reports cough. Denies dyspnea. GASTROINTESTINAL: Denies abdominal pain, nausea, vomiting, diarrhea SKIN: Denies rash or itching. MUSCULOSKELETAL: Denies myalgia. NEUROLOGIC: Denies headache. All systems reviewed & are unremarkable except as noted in HPI and below PMFSH Past Medical History Medical History (Updated 03/07/24 @ 09:54 by Na Sherwood NP) Inguinal hernia Asthma GERD (gastroesophageal reflux disease) Surgical History Surgical History (Updated 03/01/24 @ 10:41 by Anusha Cat CMA) H/O umbilical hernia repair 02/07/24 repair of incarcerated umbilical hernia with mesh, defect measuring [address] Archuleta H/O inguinal hernia repair History of appendectomy Family History Family History Father Hypertension Mother Depression Anxiety Heart problem Thyroid disorder Glaucoma Sibling Levar's disease CHF (congestive heart failure) Grandparent Cancer Social History Social History (Reviewed 03/01/24 @ 10:17 by DANELLE Choi Smoking status: Never smoker Alcohol intake: current Substance use: never Do You Feel Safe in your Home?: Yes Lack of Transportation: No Lack of Food: Never True Current Housing: I Have Housing Concerned About Future Housing: No Difficulty Paying Gas/Electric Bills: No Difficulty Paying for Meds: No Currently Unemployed: No Education: Bachelor's Degree Difficulty w/ Childcare or Family Care: No Living arrangements: with family Occupation/Education: occupation Additional occupation/education comments: [employer] Gender identity (if verbalized by the patient): Male Spiritual care concerns: No Comments At time of signature, agree with nursing past medical, surgical, social and family history. There is no relevant family history pertinent to the presenting complaint Exam Narrative: GENERAL: Well-appearing, well-nourished, and in no acute distress. HEAD: Normocephalic EYES: PERRLA, conjunctivae clear ENT: Nares clear, turbinates edematous and erythematous, clear discharge. Mucous membranes moist. TM pearly thakur with dull light reflex bilaterally; no tragal tenderness. Oropharynx not erythematous without lesions. Tonsils not enlarged and without exudate, no drooling, no hoarseness, no trismus, uvula midline. NECK: Supple. No lymphadenopathy CHEST: Clear to auscultation, breath sounds equal. No wheezing, rhonchi, rales, or stridor. No respiratory distress, speaks in full sentences. HEART: Regular rate and rhythm. No murmur heard. SKIN: Warm, dry, no rash. NEURO: Alert and oriented x3. PSYCH: Normal mood and affect Course Course Emergency Course: Patient is aware of diagnosis, understands and agrees to treatment plan. Anticipatory guidance given. Patient agrees to follow-up as directed and is aware of reasons to seek care at the emergency department. Portions of this record may have been created with voice recognition software Level of Care: Express Care Visit Vital Signs Vital signs: Vital Signs Temperature 98.8 F 03/07/24 09:24 Pulse Rate 81 03/07/24 09:24 Respiratory Rate 16 03/07/24 09:24 Blood Pressure 123/69 03/07/24 09:24 Pulse Oximetry 99 03/07/24 09:24 Oxygen Delivery Room Air 12/24/24 09:24 Temperature 98.8 F 03/07/24 09:24 Pulse Rate 81 03/07/24 09:24 Respiratory Rate 16 03/07/24 09:24 Blood Pressure 123/69 03/07/24 09:24 Pulse Oximetry 99 03/07/24 09:24 Oxygen Delivery Room Air 03/07/24 09:24 Reviewed. MDM - URI/Sore Throat MDM Narrative Medical decision making narrative: Differential diagnosis considered: Mendoza virus, strep pharyngitis, allergic rhinitis, upper respiratory tract infection, sinusitis, rhinosinusitis, nasopharyngitis. viral pharyngitis, otitis media, otitis externa, pneumonia, bronchitis, viral cough syndrome, viral syndrome, and influenza. Exam findings show no acute concerns or changes; patient is non-toxic appearing and is in no distress. Patient is appropriate for outpatient treatment and follow-up. Lab Data Attestation: I reviewed the patient's lab results. Labs: Lab Results 03/07/24 Range/Units 09:51 POC Influenza A Ag Negative (Negative) POC Influenza B Ag Negative (Negative) POC SARS CoV-2 Ag Negative (Negative) POC Grp A Strep Screen Negative (Negative) Critical Care Time Critical Care Time Critical Care Time: No Discharge Plan Discharge Clinical Impression: Upper respiratory infection Patient Disposition: Home, Self-Care Condition: Stable Instructions: Antibiotic Form, Upper Respiratory Infection (ED) Additional Instructions: Viral illness may last between 7-21 days; antibiotics do not cure viral illness and are NOT recommended at this time. Recommend antihistamine such as Benadryl at night time and Zyrtec or Cindy during the day Cough syrup may cause drowsiness; avoid driving or take it at night time. Also, recommend symptomatic treatment includes: rest, fluids, and increase humidity of the air at home. Recommend Acetaminophen as directed on the bottle to reduce fever, pain, headache. Avoid smoking/second-hand smoke. Please schedule a follow-up visit with your personal physician for further evaluation and treatment within 3-5days. If your symptoms persist, change or worsen significantly before you can contact your personal physician then please, without delay, go to the emergency department for further evaluation. Patient Language: Citizen Of [place] Prescriptions: New promethazine-DM 6.25-15 mg/5 mL syrup 5 ml PO Q4-6H PRN (Reason: cough) Qty: 120 0RF methylprednisolone [Medrol (Scout)] 4 mg tablets,dose pack See Rx Instructions .ROUTE .COMPLEX Qty: 21 0RF Rx Instructions: orally per package directions No Action multivitamin Tablet 1 tablet PO DAILY albuterol sulfate 90 mcg/actuation HFA aerosol inhaler 2 puff inhalation QID PRN (Reason: shortness of breath or wheezing) Qty: 8.5 0RF epinephrine 0.15 mg/0.3 mL auto-injector 0.15 mg IM Q30M PRN Rx Instructions: do not exceed 12 doses per 24 hrs esomeprazole magnesium [Nexium] 20 mg capsule,delayed release(DR/EC) 20 mg PO DAILY 90 Days Qty: 90 3RF Follow-up/Referrals: Teresa Srivastava, [employer] [Primary Care Provider] - Time of Disposition: 09:54
[2024-03-07 09:24] VITALS: BP 123/69; PULSE 81; RESP 16; TEMP 37.1; O2SAT 99
[2024-03-07 09:53] LABS: EDCOVIDSCREEN Negative (Negative); EDINFLUASCREEN Negative (Negative); EDINFLUBSCREEN Negative (Negative); EDSTREPNEGPOS1 Negative (Negative)
--- OUTSIDE RECORDS SUMMARY | 2024-03-14 15:13 | XMS_ITS | Encounter Summary ---
Author Organization [facility] Address [address] [facility] [place] [address] Care Team Providers Care Silk Opener Name Role Phone Unavailable Primary Care Provider Unavailabl e Reason for Visit * Reason Comments Imm Inj Tdap and flu shot Encounter Details Date Type Department Care Team (Late st Contact Info) Description 05/25/2016 3:40 PM CDT Office Visit [facility] AT [address] [place] [address] Provider, Drea Santos Need for Tdap vaccination (Primary Dx); Need for prophylactic vaccination and inoculation against influenza Social History Tobacco Use Types Packs/Day Years Used Date Smoking Tobacco: Never Assessed Sex and Gender Information Value Date Recorded Sex Assigned at Not on file Gender Identity Not on file Sexual Orientation Not on file documented as of this encounter Progress Notes * Emmett Vick APRN-CNP - 05/25/2016 3:50 PM CDT Tdap and flu vaccine only. Vaccine questionnaire reviewed. documented in this encounter Plan of Treatment Not on file documented as of this encounter Visit Diagnoses Diagnosis Need for Tdap vaccination- Primary Need for prophylactic vaccination with combined viohihjrtb-onbjekz-eipfavonz (DTP) vaccine Need for prophylactic vaccination and inoculation against influenza documented in this encounter
--- OUTSIDE RECORDS SUMMARY | 2024-03-14 15:13 | XMS_ITS | Clinical Summary ---
Author Organization [facility] Address [address] [address] Phone Care Team Providers Care School Psychological Examiner Name Role Phone Teresa Srivastava APRN, MACHINE BOOKKEEPER Primary Care Provider Allergies No known active allergies Medications famotidine (PEPCID) 20 MG TabletIndications :Gastroesophageal reflux disease without esophagitis Take 1 Tab by mouth 2 times daily. 90 Tab 3 10/03/2018 Active Active Problems Problem Noted Date Diagnosed Date Pure hypercholesterolemia 01/28/2017 GERD (gastroesophageal reflux disease) 7 Physical exam, annual (Adult) 04/03/2016 Encounters Date Type Department Care Team Description 12/31/2023 4:42 PM CDT - 12/31/2023 7:50 PM CDT Emergency [facility] [address] [place] [address] Regan Marcum PAC Hives Discharge Disposition: Discharged to home or Selfcare 12/31/2023 Travel from Last 3 Months Immunizations Immunization Administration Dates Next Due Influenza Vaccine 12/30/2016,05/25/2016 TDAP Vaccine 05/25/2016 Family History Medical History Relation Name Comments Levar's Disease Brother Hypertension Father Breast Cancer Maternal Grandmother Cancer Maternal Uncle Bone No Known Problems Mother Lung Cancer Paternal Grandmother Relation Name Status Comments Brother Alive Father Alive Maternal Grandmother Maternal Uncle Mother Alive Paternal Grandmother Social History Tobacco Use Types Packs/Day Years Used Date Smoking Tobacco: Never Smokeless Tobacco: Never Tobacco Cessation:Counseling Given: Yes Alcohol Use Standard Drinks/Week Comments Yes 0 (1 standard drink = 0.6 oz pur e alcohol) Social Sexually Active Control Partners Comments Yes Female Sex and Gender Information Value Date Recorded Sex Assigned at Not on file Legal Sex Male 9:41 PM CDT Gender Identity Not on file Sexual Orientation Not on file Last Filed Vital Signs Vital Sign Reading Time Taken Comments Blood Pressure 134/81 12/31/2023 7:45 PM CDT Pulse 116 12/31/2023 7:45 PM CDT Temperature 36.8 ??C (98.2 ??F) 12/31/2023 4:39 PM CD T Respiratory Rate 18 12/31/2023 7:39 PM CDT Oxygen Saturation 94% 12/31/2023 7:45 PM CDT Inhaled Oxygen Concentration - - Weight 124.7 kg (275 lb) 12/31/2023 4:39 PM CDT Height 188 cm (6' 2 ) 12/31/2023 4:39 PM CDT Body Mass Index 35.31 12/31/2023 4:39 PM CDT Plan of Treatment Health Maintenance Due Date Last Done Comments Hepatitis C Virus (HCV) Screening 1990 Hepatitis B Immunization (1 of 3 - 19+ 3-dose series) 12/12/2007 Influenza Immunization (#1) 11/14/202312/13, 05/25/2016 SARS-COV-2 Immunization ( season) 2023 Td Immunization Every 10 Yea rs (Adults With 1 Tdap) 05/25/2026 05/25/2016 Respiratory Syncytial Virus (RSV) Immunization (Adult) (1 - 1-dose 75+ series) 12/12/2063 Meningococcal Immunization (ACWY) Aged Out No longer eligible b ased on patient's age to complete this topic Pneumococcal Immunization Combined Aged Out No longer eligible b ased on patient's age to complete this topic Rotavirus Immunization Aged Out No lo nger eligible based on patient's age to complete this topic Insurance Care Teams School Psychological Examiner Relationship Specialty Start Date End Date Teresa Srivastava APRN, MACHINE BOOKKEEPER [address] [place] [address] PCP - General Advanced Practice Nurse 12/31/23
--- OUTSIDE RECORDS SUMMARY | 2024-03-14 15:13 | XMS_ITS ---
Author Organization [facility] Address [address] [place] [address] Care Team Providers Care Stoner Hand Name Role Phone Teresa Srivastava Primary Care Provider UnavailDeborah Guevara Unavailable [phone] Vivi Lopez Unavailable [phone] REASON FOR VISIT OPTOMETRIC TECH Food Allergies Encounters Encounter Location Date Provider Diagnosis [facility] [address] [place] [address] e [address] [place] [address] 01/19/2024 Vivi Lopez Plan Of Treatment Next Appt Details Provider Name:Deborah escudero, 03/28/2024 09:00:00 AM, [address], [address], [place], [address], Progress Notes * Doug LOFTONDOB:1990 ( 33 yo M)Acc No.[id number]:01/19/2024 Progress Notes Patient:?Doug LOFTON Provider:?JAQUAN Vasquez :1990???Age:33 Y???Sex:Male Eliot e:01/19/2024 Address:[address] [place], [place]-[address] Pcp:Teresa Srivastava Subjective: * Chief Complaints: * ???1. OPTOMETRIC TECH Food Allergies. * Medical History:? Objective: * Vitals:? Assessment: Plan: * Treatment: * Billing Information: * Visit Code:? * Procedure Codes:? * Electronic signature of JAQUAN Delgado on 03/14/2024 at 03:13 PM BLADE CHANGER Sign off status: Pending * Provider:?JAQUAN Vasquez Eliot e:?01/19/2024 Generated for Ana cheema/Mona/Evelio on:?03/14/2024 03:13 PM BLADE CHANGER
--- OUTSIDE RECORDS SUMMARY | 2024-03-14 15:13 | XMS_ITS ---
Author Organization [facility] Address [address] [place] [address] Care Team Providers Care Technical Artist Name Role Phone Teresa Srivastava Primary Care Provider Deborah Plata Unavailable [phone] Allergies No Known Allergies Results Component Value Reference Range Notes TRYPTASE (Not yet reviewed b y provider) Interpretation: Performing Lab:[facility], [facility], [address], [place], [address] Andrews Tripathi M.D.,PhD Notes/Report: NON-FASTING TRYPTASE 5.5 <11.0 mcg/L The Tryptase test, fluorescent enzyme immunoassay (FEIA), measures both the Alpha and Beta forms of Tryptase. Measuring both forms of Tryptase increases sensitivity for the diagnosis of mastocytosis, and mast cell degranulation as a cause of anaphylaxis. REASON FOR VISIT Four total episodes of abdominal cramping, vomiting, diarrhea and hives without clear trigger. Lastoccurred December 29, treated at the ER with steroids and epinephrine. Continues carrying AIE at all times. Returning for laboratory review., Chronic upper airway symptoms concerning for uncontrolled atopic disease, mild symptoms near cats and in the Spring and Fall. Medications Medication SIG (Take, Route, Frequency, Duration) Notes Start Date End Date Status EPINEPHrine 0.3 MG/0.3ML as directed Inj ection once for 30 days Active Famotidine 20 MG 1 tablet Orally Twic e a day for 30 days Active Multi For Him Active Montelukast Sodium 10 MG 1 tablet Orally Once a day for 30 days Active Esomeprazole Magnesium 40 MG 1 capsule 1/2 to 1 hour before morning meal Orally Once a day Active Cetirizine HCl 10 MG 1 tablet Orally Twi ce a day for 30 days Active Social History Tobacco Use: Social History Observation Description Date Details (start date - stop date) Never Smoker NA - NA Tobacco Control (Standard) Question Answer Notes Tobacco use: Nonsmoker Vital Signs Blood pressure systolic 101 mm Hg 02/28/20 24 Blood pressure diastolic 68 mm Hg 024 Height 72 in 02/28/2024 Weight 265.2 lbs 02/28/2024 BMI 35.96 kg/m2 02/28/2024 Oximetry 98 % 02/28/2024 Encounters Encounter Location Date Provider Diagnosis [facility] [address] [place] [address] 02/28/2024 Deborah Carmela Other urticaria L50. 8 ; Vomiting, unspecified R11.10 ; Hypertrophy of nasal turbinates J34.3 and Chronic rhinitis J31.0 Assessments Encounter Date Diagnosis (ICD Code) Assessment Notes Treatment Notes Treatment Clinical Notes Section Notes 02/28/2024 Other urticaria (ICD-10 - L50.8) Doug presented to his initial visit with reports of 4 episodes of abdominal pain, vomiting, diarrhea and hive formation. Most recently occurred on December 29. All episodes occurred following dairy or red meat products, however many hours after consumption. Doug was also taking ibuprofen the day of the last episode, he has not taken since. No alcohol or opioid use. He does admit to various tick bites in the last few years. He is carrying an AIE at all times. - Ordered laboratory work that showed elevated sedimentation rate, otherwise unremarkable. Of note, he had a hernia repair a few days prior to having labs drawn. Alpha gal panel was negative. Consider idiopathic anaphylaxis vs CIU vs other. - Doug is to carry an AIE at all times. He was educated on indications and proper use. Instructed Doug to carry AIE at all times and administer at the onset of symptoms. - With Doug's alpha gal panel being negative, it is unlikely that red meat caused his symptoms. He can continue to consume red meat ad-giovanny. He admits to limiting his red meat consumption due to recent high cholesterol. - Consider skin testing to aeroallergens, see plan below. - Last visit started medication therapy with Zyrtec and Pepcid BID and Singulair at night in attempt to prevent symptoms from occurring. Doug took these medications, however would like to hold medications at this time. Restart if symptoms recur. Will obtain STAT trpytase if symptoms recur. Order printed. - Highly consider XOLAIR if symptoms recur. - Doug is to return in 4 weeks for skin testing as below 02/28/2024 Vomiting, unspecified (ICD-10 - R11.10) See plan above 02/28/2024 Hypertrophy of nasal turbinates (ICD-10 - J34.3) Doug presents with upper airway symptoms concerning for uncontrolled atopic disease. His symptoms worsen in the Spring and Fall. He has cats and dogs in his home. - Obtained ImmunoCaps, however all negative. Total IgE 144. Discussed returning for SPT, which Doug is interested in. Return in 4 weeks 02/28/2024 Chronic rhinitis (ICD-10 - J31.0) See plan above 02/28/2024 Other Plan Of Treatment Medication Medication Name Sig Start Date Stop Date Notes EPINEPHrine 0.3 MG/0.3ML as directed Inj ection once for 30 days Famotidine 20 MG 1 tablet Orally Twic e a day for 30 days Montelukast Sodium 10 MG 1 tablet Orally Once a day for 30 days Cetirizine HCl 10 MG 1 tablet Orally Twi ce a day for 30 days Treatment Notes Assessment Notes Other urticaria Doug presented to his initial visit with reports of 4 episodes of abdominal pain, vomiting, diarrhea and hive formation. Most recently occurred on December 29. All episodes occurred following dairy or red meat products, however many hours after consumption. Doug was also taking ibuprofen the day of the last episode, he has not taken since. No alcohol or opioid use. He does admit to various tick bites in the last few years. He is carrying an AIE at all times. - Ordered laboratory work that showed elevated sedimentation rate, otherwise unremarkable. Of note, he had a hernia repair a few days prior to having labs drawn. Alpha gal panel was negative. Consider idiopathic anaphylaxis vs CIU vs other. - Doug is to carry an AIE at all times. He was educated on indications and proper use. Instructed Doug to carry AIE at all times and administer at the onset of symptoms. - With Doug's alpha gal panel being negative, it is unlikely that red meat caused his symptoms. He can continue to consume red meat ad-giovanny. He admits to limiting his red meat consumption due to recent high cholesterol. - Consider skin testing to aeroallergens, see plan below. - Last visit started medication therapy with Zyrtec and Pepcid BID and Singulair at night in attempt to prevent symptoms from occurring. Doug took these medications, however would like to hold medications at this time. Restart if symptoms recur. Will obtain STAT trpytase if symptoms recur. Order printed. - Highly consider XOLAIR if symptoms recur. - Doug is to return in 4 weeks for skin testing as below Vomiting, unspecified See plan above Hypertrophy of nasal turbinates Doug presents with upper airway symptoms concerning for uncontrolled atopic disease. His symptoms worsen in the Spring and Fall. He has cats and dogs in his home. - Obtained ImmunoCaps, however all negative. Total IgE 144. Discussed returning for SPT, which Doug is interested in. Return in 4 weeks Chronic rhinitis See plan above Pending Test Test Name Order Date TRYPTASE 02/28/2024 Next Appt Details Follow Up: 4 Weeks, Reason: Skin Testing: aeroallergens Provider Name:Deborah escudero, 03/28/2024 09:00:00 AM, [address] [facility], [address], [place], [address], Progress Notes * Doug LOFTONDOB:1990 ( 33 yo M)Acc No.[id number]:02/28/2024 Progress Notes Patient:?Doug LOFTON Provider:?Deborah Casey DNP PNEUMATIC TESTER-C :1990???Age:33 Y???Sex:Male Eliot e:02/28/2024 [id number] Pcp:Teresa Srivastava Subjective: * Chief Complaints: * ???Four total episodes of ab dominal cramping, vomiting, diarrhea and hives without clear trigger. Last occurred December 29, treated at the ER with steroids and epinephrine. Continues carrying AIE at all times. Returning for laboratory review.Chronic upper airway symptoms concerning for uncontrolled atopic disease, mild symptoms near cats and in the Spring and Fall. * HPI: ???*Introduction:?I had the pleasure of seeing?Doug Lofton, a 33-year-old male with past medical historysignificant for GERD, on Nexium, who returns for laboratory review. He is alone for today's visit. Doug presented to his initial visit reporting fourepisodes of abdominal cramping, vomiting, diarrhea and hives that have occurredover the last four years. Last episode occurred on December 29. Ofnote, Doug had a vasectomy on December 28. He reports eating beefjerky and a [employer] in the morning, around 2 PM he ate [facility] friedchicken with macaroni and cheese. He did not eat dinner that night. He awokeat 5 AM with severe abdominal cramping, vomiting and diarrhea, he then developed hives across his trunk. He went to the emergency room where he was treatedwith epinephrine and steroids. Doug reports his symptoms slowly resolved. Hewas then discharged with an AIE and instructed to establish with Allergy. Dougwas taking ibuprofen the day symptoms occurred, he has not taken ibuprofensince. He denies alcohol or opioid use. Doug reports three additional episodesin the last 4 years that occurred similarly. One episode he recallseating a cheeseburger, the other beef jerky again. He believes he was in hisnormal state of health when other episodes occurred. Doug does admit to a handfulof tick bites in the last several years, his family camps. He denies familyhistory of similar symptoms. Laboratory work-up was ordered on Doug that returned unremarkable, negative for alpha gal syndrome. He has been taking Zyrtec 10 mg BID, Pepcid 20 mg BID and Singulair 10 mg at night. No episodes since he was last seen. Doug endorses upper airway symptoms concerning foruncontrolled atopic disease. He hascats and dogs in his home. ImmunoCaps ordered last visit that returned negative. Doug reports history of GERD, on Nexium, he had an EGDcompleted a few years ago. No other significant past medical history. 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 Today, he reports no fevers, chills, night sweats or other constitutional symptoms.? * ROS:?ALLERGY:?runny nose?No.?scratchy throat?No.?itchy eyes?No.?ear fullness?No.?sinus congestion?No.?Positive?per the HPI and history, otherwise unremarkable.?SPECIAL SENSES:?Positve for?none.?cataracts?No.?glaucoma?No.?loss of hearing?No.?itching in ears?No.?ringing in ears?No.?loss of balance?No.?loss of smell?No.?dry eyes?No.?excessive tearing No.?itching eyes?No.?loss of taste?No.?conjunctivitis?No.?ear infections?No.?CONSTITUTIONAL:?weight gain?No.?loss of appetite?No.?fever?No.?weakness?No.?weight loss?No.?fatigue?No.?night sweats?No.?Positive for?none.?ENT:?cold?No.?cough?No.?epistaxis?No.?hearing loss?No.?change in voice?No.?sore throat?No.?ringing in ears?No.?sinus pain?No.?Positive?per the HPI and history, otherwise unremarkable.?RESPIRATORY:?shortness of breath?No.?chest pain?No.?chest congestion?No.?cough?No.?Positive?per the HPI and history, otherwise unremakable.?OPHTHALMOLOGY:?diminished vision?No.?eye irritation?No.?drainage from eyes?No.?blurring of vision?No.?seasonal eye sx?No.?Positive for?per the HPI and history, otherwise unremarkable.?itching?No.?sensitivity to light?No.?discharge?No.?watering?No.?swelling of the eyelids?No.?redness?No.?ENDOCRINOLOGY:?fatigue?No.?polydipsia?No.?polyuria?No.?weight loss?No.?sleep disturbance?No.?cold intolerance?No.?heat intolerance?No.?diabetes?No.?Positive for?none.?CARDIOLOGY:?chest pain?No.?palpitations?No.?leg edema?No.?dizziness?No.?shortness of breath?No.?Positive for?none.?GASTROENTEROLOGY:?dysphagia?No.?abdominal pain?No.?nausea?No.?vomiting?No.?constipation?No.?diarrhea?No.?blood in stool?No.?indigestion?No.?hemorrhoids?No.?Positive for?none.?UROLOGY:?difficulty urinating?No.?blood in urine?No.?frequent urination?No.?urinary incontinence?No.?recurrent UTI?No.?Positive for?none.?DERMATOLOGY:?rash?No.?mole?No.?lumps?No.?dry or sensitive skin?No.?hives (urticaria)?No.?acne?No.?skin cancer?No.?Positive for?per the HPI and history, otherwise unremakable.?NEUROLOGY:?headache?No.?tingling numbness?Yes.?seizures?No.?insomnia?No.?memory loss?No.?dizziness?No.?gait abnormality?No.?Positive for?none.?HEMATOLOGY/LYMPH:?Positive for?none.?MUSCULOSKELETAL:?joint swelling?No.?joint pain?No.?leg cramps?No.?joint stiffness?No.?sciatica?Yes.?osteoporosis?No.?fracture?No.?carpal tunnel?No.?gout?No.?Positive for?none.?PSYCHOLOGY:?high stress level?No.?depression?No.?sleep disturbances?No.?suicidal ideation?No.?eating disorder?No.?mental or physical abuse?No.?anxiety?No.?Positive for?none.?MALE REPRODUCTIVE:?difficulty with erection?No.?diminished sexual drive?No.?penile discharge?No.?infertility?No.?All other review of systems per the HPI and history, otherwise unremarkable. * Medical History:? * Surgical History:?Vasectomy 12/28/2023Inguinal hernia repair 10/10/2009ppendectomy 09/04/2012Hernia repair yst removal on right arm 01/2024 * Hospitalization/Major Diagno stic Procedure:?ER for anaphylaxis 12/31/2023 * Family History:?Father: dilcia stern, Yes.?Mother: alive, Yes.?Paternal Grand Father: Yes.?Paternal Grand Mother: No.?Maternal Grand Father: No.?Maternal Grand Mother: No.?Siblings: Yes.?Children: Yes.? Father- HTN? Mom Hyper thyriod? Brother- Levar Dieases. * Social History:?Marital Status?What is your marital status?Alcohol Screening?Do you ever drink alcoholic beverages??No ???Smoking?Have you ever smoked tobacco:?never smoked ?Additional Findings: Tobacco Non-User?Current non-smoker, but past smoking history unknown ?Are you a :?never smoker ???Recreational drug use?Have you ever used recreational drugs??No ???Details on consumption of certain products?Do you regularly consume products with aspartame; Equal or NutraSweet??Yes ?Do you regularly consume products with artificial coloring??Yes ?Have you ever noticed worsening of your rash with these food items??No ???Are any of the following personal care products containing fragrance, dye or preservatives used regularly?Shampoo:?Yes ?Conditioner:?No ?Soap:?Yes ?Laundry Detergent:?Yes ?Fabric Softener:?Yes ?Deodorant:?Yes ?Perfume, cologne, after shave:?Yes ?Air freshners or other scented products:?Yes ?Hair coloring dyes or rinses:?No ?Other:?No ???Occupation?Are you currenly employed??Yes ?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 number of years?9 ?Do you believe that your current or previous occupation has any bearing on your illness??No ?Do you have any pending or planned legal action against your current or former employer which pertains to your medical illness??No ?Do you anticipate that your evaluation will be used in any legal action against your current employer or former employer??No ?Have you had any job with high exposure to fumes, chemicals, dust or other noxious substances??No ?Are you currently a student??No ???Environmental History?Living environment:?private home,with pets ?Where is the home located??near any major factories or industries,suburb ?Age of home:?14 ?How long have you lived there??5 years or more ?How many people live in the home??6 ???Home description?Basement:?Yes ?Any water damage in basement??Yes ?Smokers in the home??No ?Smokers outside the home??No ?Air Conditioning??Yes ?Central Air??Yes ?Forced air heating??Yes ?Gas or electric??electric ?Fireplace??Yes ?Used how often??winter months only ?Wood burning stove??No ?Do you vacuum the home??Yes ?Air purification systems??No ?Pillow and mattress dust-proof encasings??Yes ?Do you use a humidifier??Yes ?Whole house or room??room humidifier ?Does it have a humidistat??Yes ?Is it used year-round, seasonal, or as needed??year-round ?Is the humidifier cleaned regularly??No ?Do you own any pets??Yes ?What kind(s)? (click all that apply)?cats,dog ?Where do your pets sleep??anywhere in the house ?Fabric softeners used??Yes ?Plants in the home??Yes ?How many??3 ?Where are they kept??other room in home ?Is there carpeting in your bedroom??Yes ?Age of carpet??10 ?Do you have [id number] carpeting??Yes ?What is the age of your carpeting??10 ?What is the age of your mattress (years)??7 ?What material(s) are used to manufacture your bedding and pillow??synthetic ?What is the age of your pillow (years)??3 ?What material are your bedding items made of??synthetic ?Do you sleep with quilts or blankets or a duvet??Yes ?What material??feather ?How many cats??2 ?How many dogs??1 ???Tobacco Control (Standard)?Tobacco use:?Nonsmoker * Medications:?TakingMulti For Him Esomeprazole Magnesium 40 MG Capsule Delayed Release 1 capsule 1/2 to 1 hour before morning meal Orally Once a day Cetirizine HCl 10 MG Tablet 1 tablet Orally Twice a day Famotidine 20 MG Tablet 1 tablet Orally Twice a day Montelukast Sodium 10 MG Tablet 1 tablet Orally Once a day EPINEPHrine 0.3 MG/0.3ML Solution Auto-injector as directed Injection once Taking Multi For Him Taking Esomeprazole Magnesium 40 MG Capsule Delayed Release 1 capsule 1/2 to 1 hour before morning meal Orally Once a day Taking Cetirizine HCl 10 MG Tablet 1 tablet Orally Twice a day Taking Famotidine 20 MG Tablet 1 tablet Orally Twice a day Taking Montelukast Sodium 10 MG Tablet 1 tablet Orally Once a day Taking EPINEPHrine 0.3 MG/0.3ML Solution Auto-injector as directed Injection once * Allergies:?N.K.D.A.no[Allerg ies Verified] Objective: * Vitals:?BP:101/68mm Hg, HR:8 4/min, Pulse Oximetry:98%, Ht: 72 in, Wt: 265.2 lbs, BMI:35.96Index. * Examination: ???General examination: ?General appearance:?pleasant, well-developed, well-nourished, male,?in no apparent distress, speaking in full sentences.?HEENT:?conjunctiva are normal bilaterally.?Oral cavity:?normal, no lesions.?Breasts :?not performed.?Neurologic exam:?unremarkable.?Skin:?normal, no visible rash, dermatographism, urticaria, angioedema.?Back:?normal.?Extremities:?normal ROM, no clubbing, no cyanosis, no edema.?Genitalia:?not performed.? Assessment: * Assessment: 1.?Other urticaria - L50.8 ( Primary)???2.?Vomiting, unspecified - R11.10???3.?Hypertrophy of nasal turbinates - J34.3???4.?Chronic rhinitis - J31.0??? Plan: * Treatment: 2.?Vomiting, unspecified? Notes: See plan above ?? 3.?Hypertrophy of nasal turb inates? Notes: Doug presents with upper airway symptoms concerning for uncontrolled atopic disease. His symptoms worsen in the Spring and Fall. He has cats and dogs in his home. - Obtained ImmunoCaps, however all negative. Total IgE 144. Discussed returning for SPT, which Doug is interested in. Return in 4 weeks?? 4.?Chronic rhinitis? Notes: See plan above ?? * Procedure Codes:?G8427 DOC M EDS VERIFIED W/PT OR [id number] Deborah Casey - Incident-to * Preventive Medicine:? ??Counseling:?Diet?as tolerated.?Exercise?Continue activity as usual.?Medication instruction:?Watch for side effects of prescribed medications, Nasal steroid/antihistamine instruction: avoid septum, Injectable epinephrine education and instruction w/ discussion of signs and symptoms of anaphylaxis and reasons to seek urgent or emergent care, , Hold all medications with antihistamine properties at least 1 week prior to upcoming skin testing at next visit.?Education:?GENERAL EDUCATION: Our staff spent an additional 30 minutes in direct contact with the patient educating them on their current diagnoses and proper treatment and prevention of symptoms and the proper use of medications.?Patient education material?sent to portal??Yes ?Care goal follow up plan?Above Normal BMI Follow-up?Dietary needs education * Follow Up:?4 Weeks (Reason: Skin Testing: aeroallergens) * Billing Information: * Visit Code:? 82215 Office Visit, Est Pt., Level 4. Modifiers: 25 * Procedure Codes:? G8427 DOC MEDS VERIFIED W/[place]. [id number] Deborah Casey - Incident-to. * ISION FILER HAND Sign off status: Completed true * Provider:?DENISSE Trimble Eliot e:?02/28/2024 Generated for Ana cheema/Mona/Radhaitting on:?03/14/2024 03:12 PM PRECISION FILER HAND History and Physical Notes * HPI (History of Present Illness) Category Sub-Category Detail Notes Category Not es *Introduction I had the pleasure o f seeing Doug Lofton, a 33-year-old male with past medical history significant for GERD, on Nexium, who returns for laboratory review. He is alone for today's visit. Doug presented to his initial visit reporting four episodes of abdominal cramping, vomiting, diarrhea and hives that have occurred over the last four years. Last episode occurred on December 29. Of note, Doug had a vasectomy on December 28. He reports eating beef jerky and a [employer] in the morning, around 2 PM he ate [facility] fried chicken with macaroni and cheese. He did not eat dinner that night. He awoke at 5 AM with severe abdominal cramping, vomiting and diarrhea, he then developed hives across his trunk. He went to the emergency room where he was treated with epinephrine and steroids. Doug reports his symptoms slowly resolved. He was then discharged with an AIE and instructed to establish with Allergy. Doug was taking ibuprofen the day symptoms occurred, he has not taken ibuprofen since. He denies alcohol or opioid use. Doug reports three additional episodes in the last 4 years that occurred similarly. One episode he recalls eating a cheeseburger, the other beef jerky again. He believes he was in his normal state of health when other episodes occurred. Doug does admit to a handful of tick bites in the last several years, his family camps. He denies family history of similar symptoms. Laboratory work-up was ordered on Doug that returned unremarkable, negative for alpha gal syndrome. He has been taking Zyrtec 10 mg BID, Pepcid 20 mg BID and Singulair 10 mg at night. No episodes since he was last seen. Doug endorses upper airway symptoms concerning for uncontrolled atopic disease. He has cats and dogs in his home. ImmunoCaps ordered last visit that returned negative. Doug reports history of GERD, on Nexium, he had an EGD completed a few years ago. No other significant past medical history. 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 Today, he reports no fevers, chills, night sweats or other constitutional symptoms Examination Category Sub-Category Detail Notes Category Not es General examination HEENT: conjunctiva are humberto l bilaterally Extremities: normal ROM, no clubb ing, no cyanosis, no edema General appearance: pleasant, well-devel oped, well-nourished, male, in no apparent distress, speaking in full sentences Skin: normal, no visible r yuly, dermatographism, urticaria, angioedema Neurologic exam: unremarkable Oral cavity: normal, no lesions Breasts : not performed Back: normal Genitalia: not performed
--- OUTSIDE RECORDS SUMMARY | 2024-03-14 15:13 | XMS_ITS | Encounter Summary ---
Author Organization [facility] Address [address] [place] [address] Phone Care Team Providers Care Miniature Set Designer Name Role Phone Carola Teresamyrna Willingham APRN, SOLARIS ADMINISTRATOR Primary Care Provider Reason for Visit * Reason Comments Hives Encounter Details Date Type Department Care Team (Late st Contact Info) Description 12/31/2023 4:42 PM CDT - 12/31/2023 7:50 PM CDT Emergency [facility] Emergency [address] [place] [address] Regan Marcum, PAC [address] [place] [address] Hives Discharge Disposition: Discharged to home or Selfcare Social History Tobacco Use Types Packs/Day Years Used Date Smoking Tobacco: Never Smokeless Tobacco: Never Alcohol Use Standard Drinks/Week Comments Yes 0 (1 standard drink = 0.6 oz pur e alcohol) Social Sexually Active Control Partners Comments Yes Female Sex and Gender Information Value Date Recorded Sex Assigned at Not on file Legal Sex Male 9:41 PM CDT Gender Identity Not on file Sexual Orientation Not on file documented as of this encounter Last Filed Vital Signs Vital Sign Reading [...] Mass Index 35.31 12/31/2023 4:39 PM CDT documented in this encounter Discharge Instructions * Discharge Instructions* Regan Marcum, ALEXA - 12/31/2023 7:06 PM CDT Encourage fluids. Continue antihistamine such as Benadryl and Pepcid [id number] for rash and itching. Follow-up with your doctor regarding recurrent allergic hive like symptoms. Return to the emergency room with new or worsening symptoms, worsening rash, difficulty breathing or swallowing, orif you have to use your prescribed EpiPen. documented in this encounter Medications at Time of Discharge famotidine (PEPCID) 20 MG TabletIndications: Gastroesophageal reflux disease without esophagitis Take 1 Tab by mouth 2 times daily. 90 Tab 3 10/03/2018 documented as of this encounter ED Notes * Merced Solorzano RN - 12/31/2023 7:44 PM CDT Pt stating he is getting itchy again. ERP notified. * Zeny Peoples RN - 12/31/2023 7:40 PM CDT Patient discharged. Discharge instructions and patient educational material reviewed with patient; questions and concerns addressed; patient verbalizes understanding, using teach back. Patient was given 1 prescription. Patient was informed no drinking alcohol, driving or operating heavy machinery while taking narcotics or muscle relaxants. Patient discharged per ambulatory mode with self as responsible constitution party. SL D/C'ed with Dami cath intact. * Merced Solorzano RN - 12/31/2023 6:33 PM CDT Report received from RADHA Aragon * Mahesh Rouse RN - 12/31/2023 5:42 PM CDT Pt medicated per ERP. Pt educated on intended effects of medication and verbalized understanding. Will re-evaluate shortly. * Regan Marcum PAC - 12/31/2023 5:15 PM CDT Chief Complaint Patient presents with Hives Hives Pertinent negatives include no abdominal pain and no shortness of breath. Patient presents ambulatory to the emergency room through triage complaining of diffuse itching hive-like rash to his entire trunk and all extremities, not involving his face. Symptoms started earlier today. He did take 25 mg p.o. Benadryl at 3:00 p.m.. States he felt dizzy and lightheaded like he was going to pass out on his way here to the hospital. Also reports nausea, vomiting, diarrhea whichwas nonbloody today. Also reports mild throat prominence sensation. Denies shortness of breath or wheezing, chest pain, abdominal pain, syncope, difficulty breathing or swallowing. Patient has no known allergies. States this has happened approximately 4 times in the past 5 years and he has been seen in the emergency room for such multiple times and it usually is corrected with steroids and antihistamines. He has never used epinephrine and he does not have an EpiPen. No history of anaphylaxis reported. He is uncertain if this is due to any food, medicine, product. He did have vasectomy Wednesday with local lidocaine anesthetic. Has only been taking Motrin at home, which he frequently takes without complication. Has never been allergy tested. No current facility-administered medications for this encounter. Current Outpatient Medications Medication Sig Dispense Refill EPINEPHrine (EpiPen 2-Scout) 0.3 MG/0.3ML Solution Auto-injector 0.3 mL by Intramuscular route once as needed for Anaphylaxis for up to 1 day. 1 mL 0 famotidine (PEPCID) 20 MG Tablet Take 1 Tab by mouth 2 times daily. 90 Tab 3 No Known Allergies Past Medical History Positives Diagnosis Date Factor X deficiency (HCC) GERD (gastroesophageal reflux disease) Seizures (HCC) Past Surgical History: Procedure Laterality Date APPENDECTOMY LAP,INGUINAL HERNIA REPR,INITIAL UPPER GASTROINTESTINAL ENDOSCOPY N/A 10/20/2016 Procedure: EGD - RANDALL, GE JUNCTION BIOPSY; Surgeon: Solitario Garcia DO; Location: [facility]; Service: Gastroenterology Social History Socioeconomic History Marital status: Spouse name: Not on file Number of children: Not on file Years of education: Not on file Highest education level: Not on file Occupational History Not on file Tobacco Use Smoking status: Never Smokeless tobacco: Never Substance and Sexual Activity Alcohol use: Yes Comment: Social Drug use: No Sexual activity: Yes Partners: Female Other Topics Concern Not on file Social History Narrative Not on file Social Determinants of Health Financial Resource Needs: Not on file Food Insecurity Needs: Not on file Transportation Needs: Not on file Physical Activity: Not on file Stress: Not on file Social Integration: Not on file Intimate Partner Violence: Not on file Housing Stability: Not on file BP 123/73 Pulse 97 Temp 98.2 ??F (36.8 ??C) (Tympanic) Resp 18 Ht 6' 2 (1.88 m) Wt 275 lb (124.7 kg) SpO2 97% BMI 35.31 kg/m?? Review of Systems Constitutional: Negative for activity change, appetite change and fever. HENT: Negative. Negative for drooling, trouble swallowing and voice change. Eyes: Negative. Respiratory: Negative for cough, shortness of breath, wheezing and stridor. Gastrointestinal: Positive for diarrhea, nausea and vomiting. Negative for abdominal pain. Genitourinary: Negative. Musculoskeletal: Negative. Skin: Positive for rash. Neurological: Positive for dizziness and light-headedness. Negative for syncope. Hematological: Negative for adenopathy. Psychiatric/Behavioral: Negative for behavioral problems. Physical Exam Vitals and nursing note reviewed. Exam conducted with a salesperson recreational vehicles present. Constitutional: General: He is not in acute distress. Appearance: Normal appearance. He is not ill-appearing, toxic-appearing or diaphoretic. HENT: Head: Normocephalic and atraumatic. Right Ear: External ear normal. Left Ear: External ear normal. Nose: Nose normal. Mouth/Throat: Mouth: Mucous membranes are moist. Pharynx: Oropharynx is clear. Comments: No angioedema noted. Patent airway. Patient is speaking full sentences and swallowing with these Eyes: Extraocular Movements: Extraocular movements intact. Conjunctiva/sclera: Conjunctivae normal. Pupils: Pupils are equal, round, and reactive to light. Cardiovascular: Rate and Rhythm: Regular rhythm. Tachycardia present. Pulses: Normal pulses. Heart sounds: Normal heart sounds. No murmur heard. No friction rub. No gallop. Pulmonary: Effort: No respiratory distress. Breath sounds: No stridor. No wheezing, rhonchi or rales. Abdominal: General: Abdomen is flat. Bowel sounds are normal. There is no distension. Palpations: Abdomen is soft. Tenderness: There is no abdominal tenderness. Musculoskeletal: General: No swelling. Normal range of motion. Cervical back: Normal range of motion and neck supple. Skin: General: Skin is warm and dry. Capillary Refill: Capillary refill takes less than 2 seconds. Findings: Rash present. Comments: Diffuse urticaria to patient's entire trunk and extremities, not involving the face Neurological: General: No focal deficit present. Mental Status: He is alert and oriented to person, place, and time. Cranial Nerves: No cranial nerve deficit. Sensory: No sensory deficit. Motor: No weakness. Coordination: Coordination normal. Gait: Gait normal. Psychiatric: Mood and Affect: Mood normal. Behavior: Behavior normal. Thought Content: Thought content normal. Judgment: Judgment normal. Procedures No results found for this or any previous visit (from the past 24 hour(s)). Imaging Results None Medical Decision Making Patient is stable. Nontoxic appearance. Significant hive like rash noted diffusely initially. Lungsclear bilaterally. No pertinent airway findings. No angioedema. Abdomen benign. Patient was given IV Pepcid, Solu-Medrol, as well as IM epinephrine for allergy purposes. He has been monitored for almost 3 hours in the ED. his symptoms have completely resolved, including the entire rash. Vital signshave improved. Tachycardia has improved. No other concerning vital signs. No hypoxia. No fever noted. No diagnosis of anaphylaxis. No blood work or imaging obtained. Diagnosis allergy/allergic hives.No known cause. Will discharge home with epinephrine pen prescription. ED return precautions given, patient was understanding. Patient follow-up with PCP regarding allergy testing. Problems Addressed: Hives: acute illness or injury Amount and/or Complexity of Data Reviewed Independent Historian: spouse Risk OTC drugs. Prescription drug management. Clinical Impression 1. Hives Disposition: Discharge Cosigned by Ena Frey MD at 01/01/2024 5:41 PM CDT * Mahesh Rouse RN - 12/31/2023 5:02 PM CDT Pt to ed room 7. No changes since triage. * Estefani Bill RN - 12/31/2023 4:40 PM CDT Patient presents to ED triage ambulatory with reports of hives all over. Patient reports having a vasectomy Wednesday and this occurred last night and is getting worse. Reports only taking motrin at home for pain. Denies any other new medications. Reports taking benadryl at home today last dose 1530. Patients VSS and no acute distress noted documented in this encounter Miscellaneous Notes * PatientPass Patient Instructions - Regan Marcum PAC - 12/31/2023 7:05 PM CDT Images from the original note were not included. Patient Education Table of Contents Hives To view videos and all your education online visit, [email or web address] or scan this QR code with your smartphone. Access to this content will in one year. Hives Hives are itchy, red, swollen areas on your skin. They can show up on any part of your body. They often go away within 24 hours (acute hives). If you get new hives after the old ones fade and this goes on for many days or weeks, it is called chronic hives. Hives do not spread from person to person (are not contagious). Hives can happen when your body reacts to something that you are allergic to (allergen). These are sometimes called triggers. You can get hives right after being around a trigger, or hours later. What are the causes? Food allergies. Insect bites or stings. Allergies to pollen or pets. Spending time in sunlight, heat, or cold. Exercise. Stress. Other causes, such as: ? Viruses. This includes the common cold. ? Infections caused by germs (bacteria). ? Some medicines. ? Chemicals or latex. ? Allergy shots. ? Blood transfusions. In some cases, the cause is not known. What increases the risk? Being female. Being allergic to foods, such as: ? [place] fruits. ? Milk. ? Eggs. ? Peanuts. ? Tree nuts. ? Shellfish. Being allergic to: ? Medicines. ? Latex. ? Insects. ? Animals. ? Pollen. What are the signs or symptoms? Itchy, red or white bumps or spots on your skin. These areas may: ? Swell and get bigger. ? Change in shape and location. ? Stand alone or connect to each other over a large area of skin. ? Sting or hurt. ? Turn white when pressed in the center (joni). In very bad cases, your hands, feet, and face may also swell. This may happen if hives start deeperin your skin. How is this treated? Treatment for hives depends on your symptoms. You may need to: Use cool, wet cloths (cool compresses) or take cool showers to stop the itching. Take or apply medicines to: ? Help with itching (antihistamines). ? Lessen swelling (corticosteroids). ? Treat infection (antibiotics). Have a medicine called omalizumab given to you as a shot. You may need this if your hives do not get better with other treatments. In very bad cases, you may need to use a device filled with medicine that gives an emergency shot of epinephrine (auto-injector pen) to stop a very bad allergic reaction (anaphylactic reaction). Follow these instructions at home: Medicines Take or apply [id number]-wmyonxx and prescription medicines only as told by your doctor. If you were prescribed antibiotics, use them as told by your doctor. Do not stop using them even ifyou start to feel better. Skin care Put cool, wet cloths on the hives. Do not scratch your skin. Do not rub your skin. General instructions Do not take hot showers or baths. This can make itching worse. Do not wear tight clothes. Use sunscreen. Wear clothes that cover your skin when you are outside. Avoid triggers that cause your hives. Keep a journal to help track what causes your hives. Write down: ? What medicines you take. ? What you eat and drink. ? What you put on your skin. Keep all follow-up visits. Your doctor will need to make sure treatment is working. Contact a doctor if: Your symptoms do not get better with medicine. Your joints hurt or swell. You have a fever. You have pain in your belly (abdomen). Get help right away if: Your tongue or lips swell. Your eyelids are swollen. Your chest or throat feels tight. You have trouble breathing or swallowing. These symptoms may be an emergency. Get help right away. Call 911. Do not wait to see if the symptoms will go away. Do not drive yourself to the hospital. This information is not intended to replace advice given to you by your health care provider. Make sure you discuss any questions you have with your health care provider. Document Released: 2008-12-08 Document Updated: 2022-11-17 Document Reviewed: 2022-11-17 [employer] Patient Education ? 2023 [employer] documented in this encounter Plan of Treatment Not on file documented as of this encounter Visit Diagnoses Diagnosis Hives- Primary Urticaria, unspecified documented in this encounter Administered Medications Inactive Administered Medications - up to 3 most recent administrations Medication Order MAR Action Action Date Dose Rate Site 0.9 % sodium chloride solution at 999 mL/hr, Intravenous, ONCE, 1 dose, On Wed12/31/23 at 1800 New Bag 12/31/2023 5:41 PM CDT 1,000 mL 999 mL/hr EPINEPHrine (Anaphylaxis) injection 0.3 mg 0.3 mg, Intramuscular, ONCE, 1 dose, On Wed12/31/23 at 1800, For intramuscular route: The vastus lateralis is the preferred IM injection site due to more complete and consistent absorption. Given 12/31/2023 5:41 PM CDT 0.3 mg Left Deltoid famotidine (PF) (PEPCID) injection 20 mg 20 mg, Intravenous, ONCE, 1 dose, On Wed12/31/23 at 1800, Indications: Peptic UlcerIndications:Peptic Ulcer Given 12/31/2023 5:41 PM CDT 20 mg methylPREDNISolone Na Suc (PF) (Solu-MEDROL) injection 125 mg 125 mg, Intravenous, ONCE, 1 dose, On Wed12/31/23 at 1800 Given 12/31/2023 5:41 PM CDT 125 mg ondansetron (ZOFRAN) injection 4 mg 4 mg, Intravenous, ONCE, 1 dose, On Wed12/31/23 at 1800 Given 12/31/2023 5:41 PM CDT 4 mg documented in this encounter Active and Recently Administered Medications Times are shown in CDT. Scheduled Medication Order 12/29/2023 12/30/2023 12/31/2023 0.9 % sodium chloride solution (COMPLETED) at 999 mL/hr, Intravenous, ONCE, 1 dose, On Wed12/31/23 at 1800 1740 (New Bag - Prov ider: Mahesh Rouse RN)1938 (Stopped - Provider: Zeny Peoples RN) EPINEPHrine (Anaphylaxis) injection 0.3 mg (COMPLETED) 0.3 mg, Intramuscular, ONCE, 1 dose, On Wed12/31/23 at 1800, For intramuscular route: The vastus lateralis is the preferred IM injection site due to more complete and consistent absorption. 1740 (Given - Provid er: Mahesh Rouse RN) famotidine (PF) (PEPCID) injection 20 mg (COMPLETED) 20 mg, Intravenous, ONCE, 1 dose, On Wed12/31/23 at 1800, Indications: Peptic Ulcer 1740 (Given - Provid er: Mahesh Rouse RN) methylPREDNISolone Na Suc (PF) (Solu-MEDROL) injection 125 mg (COMPLETED) 125 mg, Intravenous, ONCE, 1 dose, On Wed12/31/23 at 1800 1740 (Given - Provid er: Mahesh Rouse RN) ondansetron (ZOFRAN) injection 4 mg (COMPLETED) 4 mg, Intravenous, ONCE, 1 dose, On Wed12/31/23 at 1800 1741 (Given - Provid er: Mahesh Rouse RN) documented in this encounter Care Teams Miniature Set Designer Relationship Specialty Start Date End Date Teresa Srivastava, WAREHOUSE MANAGER, SOLARIS ADMINISTRATOR [address] [place], [place] [id number] PCP - General Advanced Practice Nurse 12/31/23 documented as of this encounter
--- OUTSIDE RECORDS SUMMARY | 2024-03-14 15:13 | XMS_ITS | Encounter Summary ---
Author Organization [facility] Care Team Providers Care Plant And Equipment Worker Name Role Phone Teresa Srivastava APRN, INSULATION WORKER FURNACE INSTALLER Primary Care Provider Encounter Details Date Type Department Care Team (Latest Contact Info) Description 12/31/2023 Travel Social History Tobacco Use Types Packs/Day Years [...] on file documented as of this encounter Plan of Treatment Not on file documented as of this encounter Visit Diagnoses Not on filedocumented in this encounter Care Teams Plant And Equipment Worker Relationship Specialty Start Date End Date Teresa Srivastava APRN, INSULATION WORKER FURNACE INSTALLER [address] [place] [address] PCP - General Advanced Practice Nurse 12/31/23 documented as of this encounter
--- OUTSIDE RECORDS SUMMARY | 2024-03-14 15:13 | XMS_ITS | Patient Health Record ---
Author Organization [facility] Address [address] [place] [address] Care Team Providers Care Investor Name Role Phone Teresa Srivastava Primary Care Provider Deborah Plata Unavailable [phone] Vivi Lopez Unavailable [phone] Allergies No Known Allergies Results Component Value Reference Range Notes RESPIRATORY ALLERGY PROFILE REGION VIII: [place], [place] Reviewed date:02/14/2024 03:28:16 PM Interpretation:Abnormal Performing Lab:[place], [facility], [address] [place], [address] Earnestine Culp MD Notes/Report: NON-FASTING DERMATOPHAGOIDES PTERONYSSINUS (D1) IGE <0.10 CLASS 0 DERMATOPHAGOIDES FARINAE (D2) IGE <0.10 CLASS 0 PENICILLIUM NOTATUM (M1) IGE <0.10 CLASS 0 CLADOSPORIUM HERBARUM (M2) IGE <0.10 CLASS 0 ASPERGILLUS FUMIGATUS (M3) IGE <0.10 CLASS 0 ALTERNARIA ALTERNATA (M6) IGE <0.10 CLASS 0 COCKROACH (I6) IGE <0.10 CLASS 0 MAPLE (BOX ELDER) (T1) IGE <0.10 CLASS 0 MOUNTAIN CEDAR (T6) IGE <0.10 CLASS 0 WALNUT TREE (T10) IGE <0.10 CLASS 0 SYCAMORE (T11) IGE <0.10 CLASS 0 COTTONWOOD (T14) IGE <0.10 CLASS 0 WHITE BURTON (T15) IGE <0.10 CLASS 0 OAK (T7) IGE <0.10 CLASS 0 ELM (T8) IGE <0.10 CLASS 0 HICKORY/PECAN TREE (T22) IGE <0.10 CLASS 0 WHITE MULBERRY (T70) IGE <0.10 CLASS 0 BERMUDA GRASS (G2) IGE <0.10 CLASS 0 MIKAYLA GRASS (G6) IGE <0.10 CLASS 0 COMMON RAGWEED (SHORT) (W1) IGE <0.10 CLASS 0 ROUGH PIGWEED (W14) IGE <0.10 CLASS 0 LUXEMBOURGER THISTLE (W11) IGE <0.10 CLASS 0 ROUGH RIZO ELDER (W16) IGE <0.10 CLASS 0 MOUSE URINE PROTEINS (E72) IGE <0.10 CLASS 0 IMMUNOGLOBULIN E 141 <IC=999 kU/L CAT DANDER (E1) IGE <0.10 CLASS 0 DOG DANDER (E5) IGE <0.10 CLASS 0 CHRONIC URTICARIA Reviewed date:02/24/2024 08:10:42 AM Interpretation:Normal Performing Lab:[place], [facility],, [address] [place], [address] America Gardner MD,PhD,LORETTA Notes/Report: NON-FASTING; NON-FASTING HISTAMINE RELEASE (CHRONIC URTICARIA) <16 <16 % This test was developed and its analytical performance characteristics have been determined by [employer]. It has not been cleared or approved by FDA. This assay has been validated pursuant to the CLIA regulations and is used for clinical purposes. THYROID PEROXIDASE ANTIBODIES 1 <9 IU/mL THYROGLOBULIN ANTIBODIES <1 < OR = 1 IU/mL TSH 1.34 0.40-4.50 mIU/L Male Reference Ranges for TSH: Premature Infants, (28-36) weeks 1st week of life 0.20-27.90 mIU/L Term infants, (>37 weeks) Serum or Cord Blood 1.00-39.00 mIU/L 1-2 days 3.20-34.60 mIU/L 3-4 days 0.70-15.40 mIU/L 5 days-4 weeks 1.70-9.10 mIU/L 1-11 months 0.80-8.20 mIU/L 1-19 years 0.50-4.30 mIU/L > or = 20 years 0.40-4.50 mIU/L TSH levels decline rapidly during the first week of life in most children, but may remain transiently elevated in a few individuals despite normal free T4 levels. For proper interpretation of an abnormal TSH from a thyroid screen, a Free T4 by Dialysis (TC 27886) or T4, Total (Thyroxine) (TC [address]249) should be considered. For additional information, please refer to http://education.RewardLoop/faq/MMS977 (This link is being provided for informational/educational purposes only.) ANTI-IGE Reviewed date:02/24/2024 08:10:30 AM Interpretation:Normal Performing Lab:[facility],, [address] [place], [address] America Gardner MD,PhD,LORETTA Notes/Report: NON-FASTING; NON-FASTING IGE ANTIBODY (ANTI IGE IGG) <6 <168 ng/mL This test was developed and its analytical performance characteristics have been determined by [employer]. It has not been cleared or approved by FDA. This assay has been validated pursuant to the CLIA regulations and is used for clinical purposes. TRYPTASE Reviewed date:02/16/2024 04:03:15 PM Interpretation:Normal Performing Lab:[facility], [address], [place], [address] Andrews Tripathi M.D.,PhD Notes/Report: NON-FASTING TRYPTASE 6.0 <11.0 mcg/L The Tryptase test, fluorescent enzyme immunoassay (FEIA), measures both the Alpha and Beta forms of Tryptase. Measuring both forms of Tryptase increases sensitivity for the diagnosis of mastocytosis, and mast cell degranulation as a cause of anaphylaxis. CU PANEL Reviewed date:02/17/2024 01:11:44 PM Interpretation:Abnormal Performing Lab:[place], [facility], [address], [place], [address] Santy Ramirez, Director - [address] [facility] Notes/Report: NON-FASTING; NON-FASTING BILIRUBIN, DIRECT 0.1 < OR = 0.2 mg/dL GLUCOSE 76 65-99 mg/dL Fasting reference interval UREA NITROGEN (BUN) 11 7-25 mg/dL CREATININE 0.87 0.60-1.26 mg/dL EGFR 115 > OR = 60 mL/min/1.73m2 BUN/CREATININE RATIO SEE NOTE: 6-22 (calc) Not Reported: BUN and Creatinine are within reference range. SODIUM 141 135-146 mmol/L POTASSIUM 4.1 3.5-5.3 mmol/L CHLORIDE 106 98-110 mmol/L CARBON DIOXIDE 28 20-32 mmol/L CALCIUM 8.8 8.6-10.3 mg/dL PROTEIN, TOTAL 6.2 6.1-8.1 g/dL ALBUMIN 4.0 3.6-5.1 g/dL GLOBULIN 2.2 1.9-3.7 g/dL (calc) ALBUMIN/GLOBULIN RATIO 1.8 1.0-2.5 (calc) BILIRUBIN, TOTAL 0.8 0.2-1.2 mg/dL ALKALINE PHOSPHATASE 63 36-130 U/L AST 15 10-40 U/L ALT 16 9-46 U/L SED RATE BY MODIFIED WESTERGREN 22 < OR = 15 mm/h COLOR YELLOW YELLOW APPEARANCE CLEAR CLEAR SPECIFIC GRAVITY 1.011 1.001-1.035 PH 7.5 5.0-8.0 GLUCOSE NEGATIVE NEGATIVE BILIRUBIN NEGATIVE NEGATIVE KETONES NEGATIVE NEGATIVE OCCULT BLOOD NEGATIVE NEGATIVE PROTEIN NEGATIVE NEGATIVE NITRITE NEGATIVE NEGATIVE LEUKOCYTE ESTERASE NEGATIVE NEGATIVE WBC NONE SEEN < OR = 5 /HPF RBC NONE SEEN < OR = 2 /HPF SQUAMOUS EPITHELIAL CELLS NONE SEEN < OR = 5 /HPF BACTERIA NONE SEEN NONE SEEN /HPF HYALINE CAST NONE SEEN NONE SEEN /LPF WHITE BLOOD CELL COUNT 8.8 3.8-10.8 Thousand/ uL RED BLOOD CELL COUNT 4.59 4.20-5.80 Million/uL HEMOGLOBIN 13.4 13.2-17.1 g/dL HEMATOCRIT 41.8 38.5-50.0 % MCV 91.1 80.0-100.0 fL MCH 29.2 27.0-33.0 pg MCHC 32.1 32.0-36.0 g/dL For adults, a slight decrease in the calculated MCHC value (in the range of 30 to 32 g/dL) is most likely not clinically significant; however, it should be interpreted with caution in correlation with other red cell parameters and the patient's clinical condition. RDW 13.2 11.0-15.0 % PLATELET COUNT 315 140-400 Thousand/uL MPV 10.5 7.5-12.5 fL ABSOLUTE NEUTROPHILS 5350 7567-7969 cells/uL ABSOLUTE LYMPHOCYTES 2526 850-3900 cells/uL ABSOLUTE MONOCYTES 774 200-950 cells/uL ABSOLUTE EOSINOPHILS 123 15-500 cells/uL ABSOLUTE BASOPHILS 26 0-200 cells/uL NEUTROPHILS 60.8 LYMPHOCYTES 28.7 MONOCYTES 8.8 EOSINOPHILS 1.4 BASOPHILS 0.3 GLIADIN (DEAMIDATED) AB (IGA) <1.0 Value Interpretation ----- <15.0 Antibody not detected > or = 15.0 Antibody detected GLIADIN (DEAMIDATED) AB (IGG) <1.0 Value Interpretation ----- <15.0 Antibody not detected > or = 15.0 Antibody detected TISSUE TRANSGLUTAMINASE AB, IGG <1.0 Value Interpretation ----- <15.0 Antibody not detected > or = 15.0 Antibody detected TISSUE TRANSGLUTAMINASE AB, IGA <1.0 Value Interpretation ----- <15.0 Antibody not detected > or = 15.0 Antibody detected PRINCESS SCREEN, IFA NEGATIVE NEGATIVE PRINCESS IFA is a first line screen for detecting the presence of up to approximately 150 autoantibodies in various autoimmune diseases. A negative PRINCESS IFA result suggests an PRINCESS-associated autoimmune disease is not present at this time, but is not definitive. If there is high clinical suspicion for Sjogren's syndrome, testing for anti-SS-A/Ro antibody should be considered. Anti-Liza-1 antibody should be considered for clinically suspected inflammatory myopathies. AC-0: Negative International Consensus on PRINCESS Patterns (https://doi.org/10.1515/c ovd-4433-5956) For additional information, please refer to http://education.iPierian.[employer] Partners/faq/BMQ331 (This link is being provided for informational/ educational purposes only.) IMMUNOGLOBULIN A 126 47-310 mg/dL RHEUMATOID FACTOR <10 <14 IU/mL THYROGLOBULIN ANTIBODIES <1 < or = 1 IU/mL THYROID PEROXIDASE ANTIBODIES 1 <9 IU/mL ENDOMYSIAL ANTIBODY SCR (IGA) W/REFL TO TITER NEGATIVE NEGATIVE IMMUNOGLOBULIN E 132 <AB=607 kU/L TSH W/REFLEX TO FT4 1.16 0.40-4.50 mIU/L INTERPRETATION Reviewed date:02/14/2024 03:28:25 PM Interpretation:Interpretation Performing Lab:[facility], [address] [place], [address] Earnestine Culp MD Notes/Report: NON-FASTING INTERPRETATION Specific Level of Allergen IGE Class kU/L Specific IGE Antibody ----- --------- 0 <0.10 Absent/Undetectable 0/1 0.10-0.34 Very Low Level 1 0.35-0.69 Low Level 2 0.70-3.49 Moderate Level 3 3.50-17.4 High Level 4 17.5-49.9 Very High Level 5 50-100 Very High Level 6 >100 Very High Level The clinical relevance of allergen results of 0.10-0.34 kU/L are undetermined and intended for specialist use. Allergens denoted with a include results using one or more analyte specific reagents. In those cases, the test was developed and its analytical performance characteristics have been determined by [employer]. It has not been cleared or approved by the U.S. Food and Drug Administration. This assay has been validated pursuant to the CLIA regulations and is used for clinical purposes. ALPHA GAL PANEL Reviewed date:02/16/2024 04:30:15 PM Interpretation:Normal Performing Lab:[facility], [address] [place], [address] Earnestine Culp MD Notes/Report: NON-FASTING; NON-FASTING BEEF (F27) IGE <0.10 CLASS 0 ALVARADO (F88) IGE <0.10 CLASS 0 PORK (F26) IGE <0.10 CLASS 0 GALACTOSE ALPHA 1,3 GALACTOSE IGE <0.10 <0.10 kU/L Results above 0.1 kU/L indicate an allergen-specific IgE sensitization to fnmurkrxf-x-2,3-galactose, and such patients are at risk for delayed allergic reactions following beef, pork, or alvarado consumption. Circulating IgE antibodies may remain undetectable despite a convincing clinical history because these antibodies may be directed towards allergens revealed or altered during industrial processing, cooking, or digestion and therefore do not exist in the original food for which the patient is tested. Sometimes individuals diagnosed with chronic urticaria may develop IgE antibodies directed against human thyroglobulin. Such antibodies may cross-react with the bovine thyroglobulin used in ImmunoCAP(R) Allergen o215, alpha-Gal, leading to a false-positive test result. A definitive diagnosis should be based on the evaluation of both clinical and laboratory findings and not on any single diagnostic method. Additional information can be found at http://www.myParcelDelivery.com TRYPTASE (Not yet reviewed b y provider) Interpretation: Performing Lab:[facility], [address] , [place], [address] Andrews Tripathi M.D.,PhD Notes/Report: NON-FASTING TRYPTASE 5.5 <11.0 mcg/L The Tryptase test, fluorescent enzyme immunoassay (FEIA), measures both the Alpha and Beta forms of Tryptase. Measuring both forms of Tryptase increases sensitivity for the diagnosis of mastocytosis, and mast cell degranulation as a cause of anaphylaxis. INTERPRETATION Reviewed date:02/17/2024 01:11:53 PM Interpretation:Interpretation Performing Lab:[facility], [address] [place], [address] Earnestine Culp MD Notes/Report: NON-FASTING; NON-FASTING INTERPRETATION Specific Level of Allergen IGE Class kU/L Specific IGE Antibody ----- --------- 0 <0.10 Absent/Undetectable 0/1 0.10-0.34 Very Low Level 1 0.35-0.69 Low Level 2 0.70-3.49 Moderate Level 3 3.50-17.4 High Level 4 17.5-49.9 Very High Level 5 50-100 Very High Level 6 >100 Very High Level The clinical relevance of allergen results of 0.10-0.34 kU/L are undetermined and intended for specialist use. Allergens denoted with a include results using one or more analyte specific reagents. In those cases, the test was developed and its analytical performance characteristics have been determined by [employer]. It has not been cleared or approved by the U.S. Food and Drug Administration. This assay has been validated pursuant to the CLIA regulations and is used for clinical purposes. Reason For Referral No Information Medications Medication SIG (Take, Route, Frequency, Duration) Notes Start Date End Date Status Esomeprazole Magnesium 40 MG 1 capsule 1/2 to 1 hour before morning meal Orally Once a day Active Multi For Him Active Famotidine 20 MG 1 tablet Orally Twic e a day for 30 days Active Cetirizine HCl 10 MG 1 tablet Orally Twi ce a day for 30 days Active Montelukast Sodium 10 MG 1 tablet Orally Once a day for 30 days Active EPINEPHrine 0.3 MG/0.3ML as directed Inj ection once for 30 days Active Immunizations Vaccine Route Administration Date Status Comme nts Influenza Unknown 04/15/2021 Administered [facility] NOC Tdap Unknown 09/21/2023 Administered [facility] Social History Tobacco Use: Social History Observation Description Date Details (start date - stop date) Never Smoker NA - NA Tobacco Control (Standard) Question Answer Notes Tobacco use: Nonsmoker Problems Problem Type SNOMED Code ICD Code Onset Dates Problem Status W/U Status Risk Notes Problem Chronic rhinitis (36442313) Chronic rhinitis (J31.0) Active confirmed Problem Hypertrophy of nasal turbinates (94856209) Hypertrophy of nasal turbinates (J34.3) Active confirmed Problem Urticaria (845480084) Other urticaria (L50.8) Active confirmed Problem Vomiting (874576802) Vomiting, unspecified (R11.10) Active confirmed Vital Signs Blood pressure diastolic 83 mm Hg 03/06/2024 Oximetry 99 % 03/06/2024 Height 72 in 03/06/2024 Blood pressure systolic 118 mm Hg 03/06/2024 Weight 260.0 lbs 03/06/2024 BMI 35.26 kg/m2 03/06/2024 Encounters Encounter Location Date Provider Diagnosis [facility] [address] [place] [address] 01/17/2024 Deborah Casey Other urticaria L50. 8 ; Vomiting, unspecified R11.10 ; Hypertrophy of nasal turbinates J34.3 and Chronic rhinitis J31.0 [facility] [address] [place] [address] 02/28/2024 Deborah Casey Other urticaria L50. 8 ; Vomiting, unspecified R11.10 ; Hypertrophy of nasal turbinates J34.3 and Chronic rhinitis J31.0 [facility] [address] [place] [address] 03/06/2024 Deborah Casey Other urticaria L50. 8 ; Vomiting, unspecified R11.10 ; Hypertrophy of nasal turbinates J34.3 and Chronic rhinitis J31.0 Assessments Encounter Date Diagnosis (ICD Code) Assessment Notes Treatment Notes Treatment Clinical Notes Section Notes 01/17/2024 Other urticaria (ICD-10 - L50.8) Doug presents with 4 episodes of abdominal pain, vomiting, diarrhea [...] carrying an AIE at all times. - Will send laboratory work as above for further investigation. Consider idiopathic anaphylaxis vs alpha gal syndrome vs other. Instructed Doug to wait two weeks to have labs drawn as last reaction occurred recently. - Doug was instructed to carry an AIE at all times. He was educated on indications and proper use. Instructed Doug to carry AIE at all times and administer at the onset of symptoms. Refill provided. - At this time Doug is to avoid red meat and dairy products while awaiting laboratory work-up. - Consider skin testing to aeroallergens, see plan below. - Discussed triple medication therapy with Zyrtec and Pepcid BID and Singulair at night in attempt to prevent symptoms from occurring. Doug is interested in trial of these medications, orders sent. - Consider XOLAIR. - Doug is to return in 6 weeks for laboratory review and further evaluation and management 01/17/2024 Vomiting, unspecified (ICD-10 - R11.10) See plan above 02/28/2024 Other urticaria (ICD-10 - L50.8) Doug [...] unspecified (ICD-10 - R11.10) See plan above 03/06/2024 Other urticaria (ICD-10 - L50.8) Doug presented [...] is carrying an AIE at all times. Doug returns today reporting abdominal pain and diarrhea over the weekend. He took Zytec, Pepcid and Singulair. He denies additional symptoms. He admits to eating more junk food than normal, he did not consume red meat. - Ordered laboratory work that showed elevated sedimentation rate, otherwise unremarkable. Of note, he had a hernia repair a few days prior to having labs drawn. Alpha gal panel was negative. Consider idiopathic anaphylaxis vs CIU vs other. - It is unclear if recent episode was due to food intolerance due to the change in Doug's diet, or if symptoms had progressed if he had not taken Zyrtec, Pepcid and Singulair. Instructed him to have tryptase level drawn. - Doug is to carry an AIE at all times. He was educated on indications and proper use. Instructed Duog to carry AIE at all times and administer at the onset of symptoms. - With Doug's alpha gal panel being negative, it is unlikely that red meat caused his symptoms. He can continue to consume red meat ad-giovanny. He admits to limiting his red meat consumption due to recent high cholesterol. - Consider skin testing to aeroallergens, see plan below. - We previously started medication therapy with Zyrtec and Pepcid BID and Singulair at night in attempt to prevent symptoms from occurring. Doug took these medications, however would like to hold medications at this time. Restart if symptoms recur. Will obtain STAT tryptase if symptoms recur. Order printed. - Highly consider XOLAIR if symptoms recur. - Doug is to return in 4 weeks for skin testing as below 03/06/2024 Vomiting, unspecified (ICD-10 - R11.10) See plan [...] is interested in. Return in 4 weeks 03/06/2024 Hypertrophy of nasal turbinates (ICD-10 - J34.3) Doug presents with upper airway symptoms concerning for uncontrolled atopic disease. His symptoms worsen in the Spring and Fall. He has cats and dogs in his home. - Obtained ImmunoCaps, however all negative. Total IgE 144. Discussed returning for SPT, which Doug is interested in. Return in 4 weeks 01/17/2024 Hypertrophy of nasal turbinates (ICD-10 - J34.3) Doug presents with upper airway symptoms concerning for uncontrolled atopic disease. His symptoms worsen in the Spring and Fall. He has cats and dogs in his home. - Discussed SPT to aeroallergens, however will have Doug return for testing as he recently had an anaphylactic reaction, see plan above. Order sent to obtain aeroallergen ImmunoCaps 01/17/2024 Chronic rhinitis (ICD-10 - J31.0) See plan above 02/28/2024 Chronic rhinitis (ICD-10 - J31.0) See plan above 03/06/2024 Chronic rhinitis (ICD-10 - J31.0) See plan above 01/17/2024 Other 02/28/2024 Other 03/06/2024 Other Plan Of Treatment Pending Test Test Name Order Date TRYPTASE 02/28/2024 Next Appt Details Provider Name:Deborah escudero, 03/28/2024 09:00:00 AM, [address], [address], [place], [address], Insurance Providers Payer Name Payer Address Payer Phone Subscriber Number Group Number Insured Name Patient Relationship to Insured Coverage Start Date Coverage End Date [facility] [address] [place] [address] [id number] Doug Lofton Self - patient is the insured Medical (General) History Surgical History Surgery Date(Month/Year) Vasectomy 12/28/2023 Inguinal hernia repair 10/10/2009 Appendectomy 09/04/2012 Hernia repair 01/2024 Cyst removal on right arm 01/2024 Hospitalization History Reason Date(Month/Year) ER for anaphylaxis 12/31/2023
--- OUTSIDE RECORDS SUMMARY | 2024-03-14 15:13 | XMS_ITS | Encounter Summary ---
Author Organization [facility] Address [address] [place] [address] Phone Care Team Providers Care Real Estate Teacher Name Role Phone Nixon Nichols MD Primary Care Provider [phone] Reason for Visit * Reason Onset Date Comments Other 03/22/2019 Encounter Details Date Type Department Care Team (Late st Contact Info) Description 03/22/2019 Telephone [facility] [address] [place] [address] Nixon Nichols MD [address] [address] Other Social History Tobacco Use Types Packs/Day Years [...] on file documented as of this encounter Miscellaneous Notes * Telephone Encounter - Stephania Adorno RN - 03/30/2019 12:33 PM AUTO DESIGN DETAILER Letter mailed DESIGN DETAILER documented in this encounter Plan of Treatment Not on file documented as of this encounter Visit Diagnoses Not on filedocumented in this encounter Care Teams Real Estate Teacher Relationship Specialty Start Date End Date Nixon Nichols MD [address] [place] [phone] PCP - General Family Medicine 03/18/16 11/24/21 documented as of this encounter
--- OUTSIDE RECORDS SUMMARY | 2024-03-14 15:13 | XMS_ITS | Referral Summary ---
Author Organization [facility] Address [address] [place] [address] Care Team Providers Care Acute Care Nursing Assistant Name Role Phone Unavailable Primary Care Provider Unavailabl e Source Comments [facility],non-owned Affiliates and Associated Physician Practices is amultiple site organization consisting of ambulatory clinics and hospital sitesin [place], [place], [place] and [place]. This disclosure is being madepursuant to the Care Everywhere program and may not contain all information available regarding this patient. Last updated 17.[facility] Allergies No known active allergies Medications Be aware that medications may not be up to date on this document. Always verify current medications with the patient. No known medications Active Problems No known active problems Immunizations Name Administration Dates Next Due INFLUENZA VACCINE, QUADR. (F LUZONE; FLULAVAL; FLUARIX; AFLURIA QUADRIVALENT; 6MO+), 0.5 ML (IIV4) 05/25/2016 TDAP (7yrs+) 05/25/2016 Social History Tobacco Use Types Packs/Day Years Used Date Smoking Tobacco: Never Assessed Sex and Gender Information Value Date Recorded Sex Assigned at Not on file Gender Identity Not on file Sexual Orientation Not on file Plan of Treatment Not on file Doug Lofton Personal/Family Self 1990
--- OUTSIDE RECORDS SUMMARY | 2024-03-14 15:13 | XMS_ITS | Patient Health Summary ---
Author Organization [facility] [employer] [facility] Address [address] [place] [address] Care Team Providers Care Business Education Teacher Name Role Phone Unavailable Primary Care Provider Unavailabl e Note from [facility],non-owned Affiliates and Associated Physician Practices is amultiple site organization consisting of ambulatory clinics and hospital sitesin [place], [place], [place] and [place]. This disclosure is being madepursuant to the Care Everywhere program and may not contain all information available regarding this patient. Last updated 17.[facility] Allergies No known active allergies Medications Be aware that medications may not be up to date on this document. Always verify current medications with the patient. No known medications Active Problems No known active problems Immunizations * INFLUENZA VACCINE, QUADR. (FLUZONE; FLULAVAL; FLUARIX; AFLURIA QUADRIVALENT; 6MO+), 0.5 ML (IIV4)(Given 05/25/2016) * TDAP (7yrs+)(Given 05/25/2016) Social History Tobacco Use Types Packs/Day Years Used Date Smoking Tobacco: Never Assessed Sex and Gender Information Value Date Recorded Sex Assigned at Not on file Gender Identity Not on file Sexual Orientation Not on file
--- OUTSIDE RECORDS SUMMARY | 2024-03-14 15:13 | XMS_ITS | Clinical Summary ---
Author Organization [facility] Address [address] [address] Care Team Providers Care Survey Data Technician Name Role Phone Unavailable Primary Care Provider Unavailabl e Source Comments [facility],non-owned Affiliates and Associated Physician Practices is amultiple site organization consisting of ambulatory clinics and hospital sitesin [place], [place], [place] and [place]. This disclosure is being madepursuant to the Care Everywhere program and may not contain all information available regarding this patient. Last updated 17.[facility] Allergies No known active allergies Medications Be [...] Orientation Not on file Plan of Treatment Health Maintenance Due Date Last Done Comments HIV SCREENING 12/12/2003 HEPATITIS C SCREENING 12/07/2006 HEPATITIS B VACCINE (1 of 3 - 19+ 3-dose series) 12/12/2007 DEPRESSION SCREENING 03/15/2023 COVID-19 VACCINE ( - 2023-2 5 season) 2023 INFLUENZA VACCINE (#1) 2023 05/25/2016 DTAP/TDAP/TD VACCINES (2 - T d or Tdap) 05/25/2026 05/25/2016 ZOSTER VACCINE (1 of 2) 2038 HIB VACCINE Aged Out No longer eligi ble based on patient's age to complete this topic HPV VACCINE Aged Out No longer eligi ble based on patient's age to complete this topic MENINGOCOCCAL VACCINE Aged Out No alley blake eligible based on patient's age to complete this topic PNEUMOCOCCAL VACCINE Aged Out No long er eligible based on patient's age to complete this topic Doug Lofton Personal/Family Self 1990
--- OUTSIDE RECORDS SUMMARY | 2024-03-14 15:13 | XMS_ITS ---
Author Organization [facility] Address [address] [place] [address] Care Team Providers Care Computer Repairer Name Role Phone Teresa Srivastava Primary Care Provider Deborah Plata Unavailable [phone] Allergies No Known Allergies REASON FOR VISIT Four total episodes of abdominal cramping, vomiting, diarrhea and hives without clear trigger. Lastoccurred December 29, treated at the ER with steroids and epinephrine. Continues carrying AIE at all times. Episode of abdominal cramping and diarrhea over the weekend, no additional symptoms., Chronic upper airway symptoms concerning for uncontrolled atopic disease, mild symptoms near cats and inthe Spring and Fall. Medications Medication SIG (Take, Route, Frequency, Duration) Notes Start Date End Date Status Esomeprazole Magnesium 40 MG 1 capsule 1/2 to 1 hour before morning meal Orally Once a day Active Famotidine 20 MG 1 tablet Orally Twic e a day for 30 days Active Cetirizine HCl 10 MG 1 tablet Orally Twi ce a day for 30 days Active Montelukast Sodium 10 MG 1 tablet Orally Once a day for 30 days Active EPINEPHrine 0.3 MG/0.3ML as directed Inj ection once for 30 days Active Multi For Him Active Social History Tobacco Use: Social History Observation Description Date Details (start date - stop date) Never Smoker NA - NA Tobacco Control (Standard) Question Answer Notes Tobacco use: Nonsmoker Vital Signs Blood pressure systolic 118 mm Hg 03/06/20 24 Blood pressure diastolic 83 mm Hg 024 Height 72 in 03/06/2024 Weight 260.0 lbs 03/06/2024 BMI 35.26 kg/m2 03/06/2024 Oximetry 99 % 03/06/2024 Encounters Encounter Location Date Provider Diagnosis [facility] [address] [place] [address] 03/06/2024 Deborah Caesy Other urticaria L50. 8 ; Vomiting, unspecified R11.10 ; Hypertrophy of nasal turbinates J34.3 and Chronic rhinitis J31.0 Assessments Encounter Date Diagnosis (ICD Code) Assessment Notes Treatment Notes Treatment Clinical Notes Section Notes 03/06/2024 Other urticaria (ICD-10 - L50.8) Doug [...] (ICD-10 - R11.10) See plan above 03/06/2024 Hypertrophy of nasal turbinates (ICD-10 - J34.3) Doug presents with upper airway symptoms concerning for uncontrolled atopic disease. His symptoms worsen in the Spring and Fall. He has cats and dogs in his home. - Obtained ImmunoCaps, however all negative. Total IgE 144. Discussed returning for SPT, which Doug is interested in. Return in 4 weeks 03/06/2024 Chronic rhinitis (ICD-10 - J31.0) See plan above 03/06/2024 Other Plan Of Treatment Medication Medication Name Sig Start Date Stop Date Notes Famotidine 20 MG 1 tablet Orally Twic e a day for 30 days Cetirizine HCl 10 MG 1 tablet Orally Twi ce a day for 30 days Montelukast Sodium 10 MG 1 tablet Orally Once a day for 30 days EPINEPHrine 0.3 MG/0.3ML as directed Inj ection once for 30 days Treatment Notes Assessment Notes [...] 4 weeks Chronic rhinitis See plan above Next Appt Details Follow Up: 4 Weeks, Reason: Skin Testing: aeroallergens Provider Name:Deborah escudero, 03/28/2024 09:00:00 AM, [address], [address], Progress Notes * Ramiro LOFTONmalikaDOB:1990 ( 33 yo M)Acc No.[id number]:03/06/2024 Skin Testing Patient:?Doug LOFTON Provider:?DENISSE Trimble :1990???Age:33 Y???Sex:Male Eliot e:03/06/2024 Address:[address] [place] [address] [place], [place] Pcp:Teresa Srivastava Subjective: * Chief Complaints: * ???Four total episodes of ab dominal cramping, vomiting, diarrhea and hives without clear trigger. Last occurred December 29, treated at the ER with steroids and epinephrine. Continues carrying AIE at all times. Episode of abdominal cramping and diarrhea over the weekend, no additional symptoms.Chronic upper airway symptoms concerning for uncontrolled atopic disease, mild symptoms near cats and in the Spring and Fall. * HPI: ???*Introduction:?I had the pleasure of seeing?Doug Lofton, a 33-year-old male with past medical historysignificant for GERD, on Nexium, who returns for skin testing to aeroallergens. He is alone for today's visit. Doug presented to his initial visit reporting fourepisodes of abdominal cramping, vomiting, diarrhea and hives that have occurredover the last four years. Last episode occurred on December 29. Ofnote, Doug had a vasectomy on December 28. 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 He did [...] unremarkable, negative for alpha gal syndrome. He presents today for skin testing, however reports an episode of abdominal pain and diarrhea over the weekend. He took Zyrtec, Pepcid and Singulair. No additional symptoms developed. He reports eating more sugar than normal this day, he did not consume red meat. Doug endorses upper airway symptoms concerning foruncontrolled atopic disease. He hascats and dogs in his home. ImmunoCaps ordered last visit that returned negative. Doug reports history of GERD, on Nexium, he had an EGDcompleted a few years ago. No other significant past medical history. 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 ?In what field is your current occupation??other [...] bedroom??Yes ?Age of carpet??10 ?Do you have ksfq-lv-hycl carpeting??Yes ?What is the age of your [...] many dogs??1 ???Tobacco Control (Standard)?Tobacco use:?Nonsmoker * Medications:?TakingCetirizin e HCl 10 MG Tablet 1 tablet Orally Twice a day Famotidine 20 MG Tablet 1 tablet Orally Twice a day Montelukast Sodium 10 MG Tablet 1 tablet Orally Once a day EPINEPHrine 0.3 MG/0.3ML Solution Auto-injector as directed Injection once Multi For Him Esomeprazole Magnesium 40 MG Capsule Delayed Release 1 capsule 1/2 to 1 hour before morning meal Orally Once a day Medication List reviewed and reconciled with the patientTaking Cetirizine HCl 10 MG Tablet 1 tablet [...] before morning meal Orally Once a day Medication List reviewed and reconciled with the patient * Allergies:?N.K.D.A.no[Allerg ies Verified] Objective: * Vitals:?BP:118/83mm Hg, HR:7 5/min, Pulse Oximetry:99%, Ht: 72 in, Wt: 260.0 lbs, BMI:35.26Index. * Examination: ???General examination: ?General appearance:?pleasant, well-developed, [...] ?? 3.?Hypertrophy of nasal turb inates? Notes: Duog presents with upper airway symptoms concerning for [...] Codes:?G8427 DOC M EDS VERIFIED W/PT OR [id number] Deborah Casey - Incident-to * Preventive Medicine:? [...] up plan?Above Normal BMI Follow-up?Dietary needs education ?BP Management:?FIRST HYPERTENSIVE BP READING FOLLOW-UP PLAN:?Follow-up 1 month ?REFERRAL TO ALTERNATIVE / PRIMARY CARE PROVIDER:?Referral to general physician * Follow Up:?4 Weeks (Reason: Skin Testing: aeroallergens) * Billing Information: * Visit Code:? 13537 Office Visit, Est Pt., Level 3. Modifiers: 25 * Procedure Codes:? G8427 DOC MEDS VERIFIED W/[place]. [address] Deborah Casey - Incident-to. * ITE OPTIMIZATION STRATEGIST Sign off status: Completed true * Provider:?DENISSE Trimble Eliot e:?03/06/2024 Generated for Ana cheema/Mona/Parulsmitting on:?03/14/2024 03:12 PM WEBSITE OPTIMIZATION STRATEGIST History and Physical Notes * HPI (History of Present Illness) Category Sub-Category Detail Notes Category Not es *Introduction I had the pleasure o f seeing Doug Lofton, a 33-year-old male with past medical history significant for GERD, on Nexium, who returns for skin testing to aeroallergens. He is alone for today's visit. Doug presented to his initial visit reporting four episodes of abdominal cramping, vomiting, diarrhea and hives that have occurred over the last four years. Last episode occurred on December 29. Of note, Doug had a vasectomy on December 28. He reports eating beef jerky and a Typo Machine Operator Ding Dong in the morning, around 2 PM he ate [facility] fried chicken with macaroni and cheese. He [...] unremarkable, negative for alpha gal syndrome. He presents today for skin testing, however reports an episode of abdominal pain and diarrhea over the weekend. He took Zyrtec, Pepcid and Singulair. No additional symptoms developed. He reports eating more sugar than normal this day, he did not consume red meat. Doug endorses upper airway symptoms concerning for uncontrolled atopic disease. He has cats and dogs in his home. ImmunoCaps ordered last visit that returned negative. Doug reports history of GERD, on Nexium, he had an EGD completed a few years ago. No other significant past medical history. 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 Today, he reports no fevers, chills, night [...]
--- OUTSIDE RECORDS SUMMARY | 2024-03-14 15:14 | XMS_ITS | Encounter Summary ---
Author Organization [facility] Address [address] [place] [address] Care Team Providers Care Chute Boss Name Role Phone Emmett Marrufo DO Primary Care Provider +1- [phone] Encounter Details Date Type Department Care Team (Late st Contact Info) Description 10/03/2021 Orders Only [facility] Cardiology [address] [place] [address] ProviderLadarius MD [address] [place] [address] Social History Tobacco Use Types Packs/Day Years Used Date Smoking Tobacco: Never Sex and Gender Information Value Date Recorded Sex Assigned at Not on file 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 Gender Identity Not on file Sexual Orientation Not on file documented as of this encounter Plan of Treatment Not on file documented as of this encounter Procedures Procedure Name Priority Date/Time Associated Diagnosis Comments LIPID PANEL Routine 06/11/2021 documented in this encounter Results * (ABNORMAL) Lipid panel (06/11/2021) SCRIBED Cholesterol, Total 269(A) 100 - 199 EXTERNAL LAB SCRIBED HDL 46 40 - 60 EXTERNAL LAB SCRIBED LDL 196(A) 0 - 99 EXTERNAL LAB SCRIBED Triglycerides 126 0 - 149 EXTERNAL LAB Blood specimen (specimen) Historical Provider LAB BLOOD ORDERABLES Edit ed Result - Final EXTERNAL LAB documented in this encounter Visit Diagnoses Not on filedocumented in this encounter Care Teams Chute Boss Relationship Specialty Start Date End Date Emmett Marrufo DO PCP - General Internal Medicine 08/12/21 documented as of this encounter
--- OUTSIDE RECORDS SUMMARY | 2024-03-14 15:14 | XMS_ITS | Encounter Summary ---
Author Organization [facility] Address [address] [place] [address] Care Team Providers Care Wire Spinner Name Role Phone Emmett Marrufo DO Primary Care Provider +1- [phone] Reason for Visit * Reason Onset Date Comments Appointment 08/12/2021 Encounter Details Date Type Department Care Team (Late st Contact Info) Description 08/12/2021 Telephone [facility] Cardiology at [address] [place] [id number] Nixon Han MD [address] [facility] [address] [place] [address] Appointment Social History Tobacco Use Types Packs/Day Years Used Date Smoking Tobacco: Never Assessed Sex and Gender Information Value Date Recorded Sex Assigned at Not on file 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 Scheduled for 10/01/2021 at 2:30 pm. Mailed Inside Sales Professional pkt. documented in this encounter Plan of Treatment Not on file documented as of this encounter Visit Diagnoses Not on filedocumented in this encounter Care Teams Wire Spinner Relationship Specialty Start Date End Date Emmett Marrufo DO PCP - General Internal Medicine 08/12/21 documented as of this encounter
--- OUTSIDE RECORDS SUMMARY | 2024-03-14 15:14 | XMS_ITS | Clinical Summary ---
Author Organization [facility] [address] [place] [address] Care Team Providers Care Wholesale Manager Name Role Phone Emmett Marrufo DO Primary Care Provider +1- [phone] Allergies No known active allergies Medications esomeprazole DR (NexIUM) 40 mg capsule Take 40 mg by mouth daily before breakfast Active [id number] -Lmfolate-algal 27 mg iron-1.13 mg-581.92 mg capsule Take by mouth Active Active Problems Problem Noted Date Diagnosed Date Abnormal findings diagnostic imaging of heart and coronary circulation 10/01/2021 Surgical History Surgery Date Site/Laterality Comments HERNIA REPAIR APPENDECTOMY Medical History Medical History Date Comments Palpitations GERD (gastroesophageal reflux disease) Inguinal hernia Asthma Hyperlipidemia Family History Medical History Relation Name Comments Heart failure Brother Sleep apnea Brother Hypertension Father Sleep apnea Father Depression Mother Glaucoma Mother Heart disease Mother Heart failure Mother Sleep apnea Mother Thyroid disease Mother Relation Name Status Comments Brother Alive Father Alive Mother Alive Social History Tobacco Use Types Packs/Day Years Used Date Smoking Tobacco: Never Personal Safety Answer Date Recorded Getting School Help Needed Not on file 05/08 Sex and Gender Information Value Date Recorded Sex Assigned at Not on file 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 Gender Identity Not on file Sexual Orientation Not on file Obstetrics History Last Filed Vital Signs Vital Sign Reading Time Taken Comments Blood Pressure 120/74 10/01/2021 2:28 PM CDT Pulse 87 10/01/2021 2:28 PM CDT Temperature - - Respiratory Rate - - Oxygen Saturation 97% 10/01/2021 2:28 PM CDT Inhaled Oxygen Concentration - - Weight 116.9 kg (257 lb 11.5 oz) 10/01/2021 2:28 PM CDT Height 188 cm (6' 2 ) 10/01/2021 2:28 PM CDT Body Mass Index 33.09 10/01/2021 2:28 PM CDT Plan of Treatment Health Maintenance Due Date Last Done Comments Depression Screening 1990 Hepatitis C Screening 1990 Varicella Vaccines (1 of 2 - 13+ 2-dose series) 2001 Regular Well Visit/Exam 18-64 2006 Covid-19 Vaccine ( season) 2023 04/15/2021, 06/01/2020, 05/11/2020 Influenza Vaccine (#1) 2023 , 02/12/2020, 12/30/2016, Additional history exists DTaP/Tdap/Td Vaccine (7 - Td or Tdap) 05/25/2026 05/25/2016, 12/19/2002, 11/07/1994, Additional history exists HPV Vaccines Aged Out No longer eligi ble based on patient's age to complete this topic Pneumococcal vaccine <65 Aged Out No longer eligible based on patient's age to complete this topic Insurance [place] [address] Care Teams Wholesale Manager Relationship Specialty Start Date End Date Emmett Marrufo DO PCP - General Internal Medicine 08/12/21
--- OUTSIDE RECORDS SUMMARY | 2024-03-14 15:14 | XMS_ITS | Continuity of Care Document ---
Author Organization [facility] Address [address] [place] [address] [address] [place] [address] Phone Care Team Providers Care Material Mover Name Role Phone Regan Atkins PTA Unavailable Unavailable Procedures Procedure Date Therapeutic Activities Neuromuscular Re-Ed Manual Therapy Therapeutic Activities Neuromuscular Re-Ed Therapeutic Exercise Manual Therapy Progress Note Therapeutic Activities Neuromuscular Re-Ed Therapeutic Exercise Manual Therapy Therapeutic Activities Neuromuscular Re-Ed Therapeutic Exercise Hot or Cold Pack Manual Therapy Therapeutic Activities Neuromuscular Re-Ed Therapeutic Exercise Manual Therapy Therapeutic Activities Neuromuscular Re-Ed Therapeutic Exercise Manual Therapy Therapeutic Activities Neuromuscular Re-Ed Therapeutic Exercise Manual Therapy Hot or Cold Pack PT Evaluation Low Complexity Therapeutic Activities Neuromuscular Re-Ed Therapeutic Exercise Progress Note Therapeutic Exercise Neuromuscular Re-Ed Manual Therapy Therapeutic Exercise Neuromuscular Re-Ed Manual Therapy Therapeutic Exercise Neuromuscular Re-Ed Manual Therapy Therapeutic Exercise Neuromuscular Re-Ed Manual Therapy Hot or Cold Pack Therapeutic Exercise Neuromuscular Re-Ed Manual Therapy Therapeutic Exercise Manual Therapy PT Evaluation Low Complexity Therapeutic Exercise Advance Directives Directive Yes / No Effective Date File Name No Information Encounters Encounter Description Practice Location Reason(s) For Visit Diagnoses Date Provider Providers Copied on Encounter [facility], [place], [id number], tel:[phone] [place] No Information 3 Milly Spears. [address] [place] [address], [place] [address], . tel:[phone] [facility] [address], [place], [place], [id number], tel:[phone] [place] No Information 3 Milly Spears. [address] [place] [address], [facility] [address], [place], [facility], . tel:[phone] [facility] [address], [place], [place], [id number], tel:[phone] [place] No Information 3 Milly Spears. [address] [facility], [facility] [address] [address], . tel:[phone] [facility] [address], [place], [place], [address], tel:[phone] Rm No Information [address] [facility], [place], [place], [address], [place] tel:[phone] [place]m No Information [address] [facility], [place], [place], [address], [place] tel:[phone] [place]m No Information 3 Milly Spears. [address] [facility], [address], [place], [address], [place]. tel:[phone] [facility], [place], [place], [address], [place] tel:[phone] Rm No Information [address] [facility], [place], [place], [address], [place] tel:[phone] Rm No Information [address] [facility], [place], [place], [address], [place] tel:[phone] [place] No Information [address] . [facility], [place], [place], [address], [place] tel:[phone] [place] Stiffness of left ankle, not elsewhere classifiedPain in left ankle and joints of left footMuscle weakness (generalized)Other abnormalities of gait and mobilityStiffness of unspecified ankle, not elsewhere classified Apr-2 3-201 8 Shahram Bill. [address] [facility], [address], [place], [address], [place]. tel:[phone] Referring Provider: Vincent Buchanan, [address] [facility] [address], [place], [address]. tel:[phone] [facility], [place], [place], [address], [place] tel:[phone] [place]m Stiffness of left ankle, not elsewhere classifiedPain in left ankle and joints of left footMuscle weakness (generalized)Other abnormalities of gait and mobilityStiffness of unspecified ankle, not elsewhere classified Apr-1 9 8 Milly Spears. [address] [facility], [address], [place], [place], [facility], . tel:[phone] Referring Provider: Vincent Buchanan, [address] [place] [address], [place], [address]. tel:[phone] [facility], [address] [place], [place] [address], [place], [place], [address], [place] tel:[phone] [place] Stiffness of left ankle, not elsewhere classifiedPain in left ankle and joints of left footMuscle weakness (generalized)Other abnormalities of gait and mobilityStiffness of unspecified ankle, not elsewhere classified Apr-1 8 Milly Spears. [address] [facility], [address], [place], [place], [facility], [place]. tel:[phone] Referring Provider: Vincent Buchanan, [address] [facility] [address] [facility], [place], [address]. tel:[phone] [facility] [address] [place], [place] [address], [place], [place], [id number], [place] tel:[phone] Rm Stiffness of left ankle, not elsewhere classifiedPain in left ankle and joints of left footMuscle weakness (generalized)Other abnormalities of gait and mobilityStiffness of unspecified ankle, not elsewhere classified Apr-1 2- 8 Shahram Bill. [address] [facility], [address], [place], [address], [place]. tel:[phone] Referring Provider: Vincent Buchanan, [address] [facility] [address], [place], [address]. tel:[phone] [facility], [address], [place], [place], [address], [place] tel:[phone] [place] Stiffness of left ankle, not elsewhere classifiedPain in left ankle and joints of left footMuscle weakness (generalized)Other abnormalities of gait and mobilityStiffness of unspecified ankle, not elsewhere classified Apr-0 9-201 8 Milly Spears. [address], [facility], . tel:[phone] Referring Provider: Vincent Buchanan, [address] [place] [address], [facility]. tel:[phone], [id number], tel:[phone] Rm Stiffness of left ankle, not elsewhere classifiedPain in left ankle and joints of left footMuscle weakness (generalized)Other abnormalities of gait and mobilityStiffness of unspecified ankle, not elsewhere classified Apr-0 5-201 8 Milly Spears. [address] [place] [address], [facility], . tel:[phone] Referring Provider: Vincent Buchanan [address] [place] [address], [facility]. tel:[phone], [place], [place], [address], tel:[phone] Rm Stiffness of left ankle, not elsewhere classifiedPain in left ankle and joints of left footMuscle weakness (generalized)Other abnormalities of gait and mobilityStiffness of unspecified ankle, not elsewhere classified Apr-0 2-201 8 Yudi Otto. . Referring Provider: Vincent Buchanan [address] [place] [address], [facility]. tel:[phone] Family History Family Member Type Diagnosis Age At Onset No Information Payers Payer name Insurance type Covered green party ID Authoriza tibrian(s) [employer] EPO WC SP WC [id number] Social History Type Description Quantity Date Captured Comments Sex Male Smoking Status No Information Chief Complaint And Reason For Visit No Information Reason For Referral Reason For Referral No Information History Of Present Illness Encounter Date Complaint History Of Prese nt Illness No Information Functional Status Date Functional Assessmen t No Information Instructions Date Instruction Additional Infor alem Giving encouragement to exercise Related to Overweight Giving encouragement to exercise Related to Overweight Assessments Type Assessment Date No Information Patient Care Teams Name Effective Dates (start - stop) Status Members No Information
--- OUTSIDE RECORDS SUMMARY | 2024-03-14 15:14 | XMS_ITS | Encounter Summary ---
Author Organization [facility] Address [address] [address] Care Team Providers Care Bag Valver Name Role Phone Emmett Marrufo DO Primary Care Provider [phone] Reason for Visit * Reason Comments New Patient Palpitations * Consultation (Routine) - Closed Specialty Diagnoses / Procedures Referred By Contac t Referred To Contact Cardiology Diagnoses Abnormal findings diagnostic imaging of heart and coronary circulation Emmett Marrufo DO Phone: tel: fax: Nixon Han MD [address] [address] Phone: tel: fax: Referral ID Status Reason Start Date Expiration Date V isits Requested Visits Authorized [id number] Closed Specialty Services Required 08/07/2021 09/06/2022 1 1 Encounter Details Date Type Department Care Team (Late st Contact Info) Description 10/01/2021 2:30 PM CDT Office Visit [facility] Cardiology at [address] [place] [address] Nixon Han MD [address] [address] Abnormal findings diagnostic imaging of heart and coronary circulation Social History Tobacco Use Types Packs/Day Years Used Date Smoking Tobacco: Never Sex and Gender Information Value Date Recorded Sex Assigned at Not on file 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 male with no previous history of cardiac problems who is referred today after having an echocardiogram and a Holter monitor done interpreted elsewhere and because of the findings is% here today for consultation. The patient states that this began after he had a trip with his family to [place] and back in May of this year. He drove to [place] in back and on the way back he was exhausted from long trip he drove the distance in 1 stop without any stopping overnight. Hewas exhausted when he got back and when he was are at home he noticed that his smart watch was reporting his pulse rate to be about 100-110 beats per minute. 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 After a short time to settle downhe did not have a physician and so he contacted his current PCP for an appointment after being seenin the office he had an echocardiogram done which looks essentially normal other than a comment that the aortic root at the sinuses of Valsalva measured 4.0 cm. He had a 48 hour Holter monitor done that demonstrated sinus rhythm with normal heart rate variability and rare atrial and ventricular ectopic activity. There were no arrhythmias of any clinical significance. He has a normal resting 12 lead electrocardiogram he is an active gentleman does not have any exertional symptoms to report. He does not have a family history of premature coronary artery disease nor does he have a family historyof aortic aneurysms. He does not carry the diagnosis of hypertension. MEDICAL HISTORY Past Medical History: Diagnosis Date ??? Asthma ??? GERD (gastroesophageal reflux disease) ??? Hyperlipidemia ??? Inguinal hernia ??? Palpitations Past Surgical History: Procedure Laterality Date ??? APPENDECTOMY ??? HERNIA REPAIR Family History Problem Relation Age of Onset ??? Heart failure Mother ??? Heart disease Mother ??? Depression Mother ??? Glaucoma Mother ??? Thyroid disease Mother ??? Sleep apnea Mother ??? Sleep apnea Father ??? Hypertension Father ??? Sleep apnea Brother ??? Heart failure Brother Social History Tobacco Use ??? Smoking status: Never Smoker ??? Smokeless tobacco: Not on file Substance and Sexual Activity ??? Drug use: Not Currently ??? Sexual activity: Not on file Alcohol Use: Not on file (Not in a hospital admission) No Known Allergies REVIEW OF SYSTEMS General ROS: negative for - chills, fatigue, fever, malaise, night sweats, weight gain or weight loss Psychological ROS: negative for - anxiety, depression, memory difficulties or sleep disturbances Ophthalmic ROS: negative for - blurry vision, decreased vision, loss of vision or scotomata ENT ROS: negative for - epistaxis, headaches, hearing change, nasal congestion, nasal discharge, sore throat, vertigo or visual changes Hematological and Lymphatic ROS: negative for - bleeding problems, blood clots, bruising, fatigue or weight loss Endocrine ROS: negative for - hot flashes, palpitations, polydipsia/polyuria or unexpected weight changes Respiratory ROS: negative for - cough, hemoptysis, orthopnea, shortness of breath, tachypnea or wheezing Cardiovascular ROS: negative for - chest pain, dyspnea on exertion, edema, irregular heartbeat, loss of consciousness, murmur, orthopnea, palpitations, paroxysmal nocturnal dyspnea, rapid heart rate or shortness of breath Gastrointestinal ROS: negative for - abdominal pain, appetite loss, blood in stools, constipation, diarrhea, gas/bloating, heartburn, hematemesis, melena or nausea/vomiting Genito-Urinary ROS: negative for - dysuria, erectile dysfunction or hematuria Musculoskeletal ROS: negative for - joint pain, muscle pain or muscular weakness Dermatological ROS: negative for dry skin, eczema, pruritus and rash LABS AND OTHER DIAGNOSTIC TESTS No results found for: WBC, HGB, HCT, MCV, PLT No lab exists for component: LABALBU No results found for: CHOL No results found for: HDL No results found for: LDLCALC No results found for: TRIG No results found for: CHOLHDL PHYSICAL EXAM Vitals BP 120/74 (BP Location: Left arm, Patient Position: Sitting) Pulse 87 Ht 188 cm (6' 2 ) Wt 116.9 kg (257 lb 11.5 oz) SpO2 97% BMI 33.09 kg/m?? General appearance - alert, well appearing, and in no distress, oriented to person, place, and timeand acyanotic, in no respiratory distress Mental status - affect appropriate to mood Eyes - extraocular eye movements intact, sclera anicteric, no pallor Ears - external earsappear normal, hearing grossly normal bilaterally Nose - normal and patent, no erythema or discharge Mouth - mucous membranes moist, pharynx appears normal, dental hygiene good and tongue normal Neck - supple, no significant neck masses, carotids upstroke normal bilaterally, no bruits, no JVD Chest - clear to auscultation, no wheezes, rales or rhonchi, symmetric air entry, no tachypnea, retractions or cyanosis Heart - normal rate, regular rhythm, normal S1, S2, no murmurs, rubs, clicks or gallops, no JVD Abdomen - soft, nontender, nondistended, no masses or organomegaly bowel sounds normal Neurological - alert, oriented, normal speech, no focal findings or movement disorder noted Musculoskeletal - no joint tenderness, deformity or swelling, no muscular tenderness noted Extremities - peripheral pulses normal, no pedal edema, no clubbing or cyanosis Skin - normal coloration and turgor, no rashes, no suspicious skin lesions noted ASSESSMENT Episode of elevated heart rate at rest several months ago after a long motor vehicle trip as described above. No other cardiovascular symptoms at this time Rare atrial and ventricular ectopic activity noted on 48 hour Holter monitor with structurally normal echocardiogram PLAN/RECOMMENDATIONS At this point no further cardiovascular workup is necessary. I reassured the patient that his echocardiographic findings are not of any clinical significance. He is totally asymptomatic for several months after the event described above I believe he was exhausted after a long highway trip from the [facility] back to [place] and I am not that concerned that is smart watch reported his heart rate to be elevated at that time. The diameter of his aortic root at the sinuses of Valsalva isessentially within normal limits there isn't any comment on not dilation of his aorta above that level and at this point I do not believe I would recommend imaging his thoracic aorta any further. I will see him in a p.r.n. fashion Nixon Han MD documented in this encounter Plan of Treatment Not on file documented as of this encounter Visit Diagnoses Diagnosis Abnormal findings diagnostic imaging of heart and coronary circulation Other nonspecific abnormal cardiovascular system function study documented in this encounter Historical Medications * This list may reflect changes made after this encounter. [id number]- Lmfolate-algal 27 mg iron-1.13 mg-581.92 mg capsule Take by mouth esomeprazole DR (NexIUM) 40 mg capsule Take 40 mg by mouth daily before breakfast added in this encounter Orders Outpatient Referral Count Last Ordered Date Fir st Ordered Date AMB REFERRAL TO CARDIOLOGY 1 10/01/2021 documented in this encounter Care Teams Bag Valver Relationship Specialty Start Date End Date Emmett Marrufo DO PCP - General Internal Medicine 08/12/21 documented as of this encounter
--- OUTSIDE RECORDS SUMMARY | 2024-03-14 15:14 | XMS_ITS | Referral Summary ---
Author Organization [facility] [address] [place] [address] Care Team Providers Care Senior Property Manager Name Role Phone Emmett Marrufo DO Primary Care Provider [phone] Allergies No known active allergies Medications esomeprazole DR (NexIUM) 40 mg capsule Take 40 mg by mouth daily before breakfast Active [id number] -Lmfolate-algal 27 mg iron-1.13 mg-581.92 mg capsule Take by mouth Active Active Problems Problem Noted Date Diagnosed Date Abnormal findings diagnostic imaging of heart and coronary circulation 10/01/2021 Social History Tobacco Use Types Packs/Day Years Used Date Smoking Tobacco: Never Personal Safety Answer Date Recorded Getting School Help Needed Not on file 05/08 Sex and Gender Information Value Date Recorded Sex Assigned at Not on file 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
--- OUTSIDE RECORDS SUMMARY | 2024-03-14 15:25 | XMS_ITS | Encounter Summary ---
Author Organization [employer] Address [address] [facility] [address] [place]: Epic Prelude ADT [place] [address] Care Team Providers Care Potato Chip Frier Name Role Phone Unavailable Primary Care Provider Unavailabl e Encounter Details Date Type Department Care Team (Latest Contact Info) Description 03/25/2020 Travel Social History Tobacco Use Types Packs/Day Years Used Date Smoking Tobacco: Never Assessed Sex and Gender Information Value Date Recorded Sex Assigned at Not on file Gender Identity Not on file Sexual Orientation Not on file COVID-19 Exposure Response Date Recorded In the last month, have you been in contact with someone who was confirmed or suspected to have Coronavirus / COVID-19? 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
--- OUTSIDE RECORDS SUMMARY | 2024-03-14 15:25 | XMS_ITS | Clinical Summary ---
Author Organization [facility] Address [address] [place] [address] Care Team Providers Care Pattern Technician Name Role Phone Unavailable Primary Care Provider Unavailabl e Social History Tobacco Use Types Packs/Day Years Used Date Smoking Tobacco: Never Assessed Sex and Gender Information Value Date Recorded Sex Assigned at Not on file Gender Identity Not on file Sexual Orientation Not on file Plan of Treatment Health Maintenance Due Date Last Done Comments DTAP/TDAP/TD VACCINES (1 - Tdap) 12/12/2007 HEPATITIS B VACCINES (1 of 3 - 19+ 3-dose series) 12/12/2007 INFLUENZA VACCINE (#1) 2023 HPV VACCINES Aged Out No longer eligi ble based on patient's age to complete this topic PNEUMOCOCCAL VACCINE 0-64 YEARS Aged Out No longer eligible based on patient's age to complete this topic
--- OUTSIDE RECORDS SUMMARY | 2024-03-14 15:25 | XMS_ITS | Continuity of Care Document ---
Author Organization [facility] Address [address] [place] [address] [address] [place] [address] Phone Care Team Providers Care Tensile Tester Name Role Phone Regan Atkins PTA Unavailable Unavailable Procedures Procedure Date Therapeutic Activities Neuromuscular Re-Ed Manual Therapy Therapeutic Activities Neuromuscular Re-Ed Therapeutic Exercise Manual Therapy Progress Note Therapeutic Activities Neuromuscular Re-Ed Therapeutic Exercise Manual Therapy Therapeutic Activities Neuromuscular Re-Ed Therapeutic Exercise Manual Therapy Hot or Cold Pack Therapeutic Activities Neuromuscular Re-Ed Therapeutic Exercise Manual [...] Diagnoses Date Provider Providers Copied on Encounter [facility], [place], [id number], tel:[phone] Shelby No Information 3 Milly Spears. [address] [place] [address], [place] [address], . tel:[phone] [facility] [address], [place], [place], [id number], tel:[phone] Rm No Information 3 Milly Spears. [address] [place] [address], [facility] [address], [place], [facility], . tel:[phone] [facility] [address], [place], [place], [id number], tel:[phone] Shelby No Information 3 Milly Spears. [address] [facility], [facility] [address] [address], . tel:[phone] [facility] [address], [place], [place], [id number], tel:[phone] Rm No Information 3 Hisky Jacobo. . [facility], [place], [place], [id number], [place] tel:[phone] Rm No Information 3 Hisky Jacobo. . [facility], [place], [place], [id number], [place] tel:[phone] Rm No Information 3 Milly Spears. [address] [facility], [address], [place], [address], [place]. tel:[phone] [facility], [place], [place], [id number], [place] tel:[phone] Rm No Information 3 Hisky Jacobo. . [facility], [place], [place], [address], [place] tel:[phone] Rm No Information 3 Hisky Jacobo. . [facility], [place], [place], [address], [place] tel:[phone] Shelby No Information 3 Modglin Jose. . [facility], [place], [place], [address], [place] tel:[phone] Shelby Stiffness of left ankle, not elsewhere classifiedPain in left ankle and joints of left footMuscle weakness (generalized)Other abnormalities of gait and mobilityStiffness of unspecified ankle, not elsewhere classified Apr-2 3-201 8 Shahram Bill. [address] [facility], [address], [place], [address], [place]. tel:[phone] Referring Provider: Vincent Buchanan, [address] [facility] [address], [place], [address]. tel:[phone] [facility], [place], [place], [address], [place] tel:[phone] Rm Stiffness of left ankle, not elsewhere classifiedPain in left ankle and joints of left footMuscle weakness (generalized)Other abnormalities of gait and mobilityStiffness of unspecified ankle, not elsewhere classified Apr-1 9 8 Milly Spears. [address] [facility], [address], [place], [place], [facility], . tel:[phone] Referring Provider: Vincent Buchanan, [address] [place] [address], [place], [address]. tel:[phone] [facility], [address] [place], [place] [address], [place], [place], [address], [place] tel:[phone] Shelby Stiffness of left ankle, not elsewhere classifiedPain in left ankle and joints of left footMuscle weakness (generalized)Other abnormalities of gait and mobilityStiffness of unspecified ankle, not elsewhere classified Apr-1 8 Milly Spears. [address] [facility], [address], [place], [place], [facility], [place]. tel:[phone] Referring Provider: Vincent Buchanan, [address] [facility] [address] [facility], [place], [address]. tel:[phone] [facility] [address] [place], [place] [address], [place], [place], [id number], [place] tel:[phone] Rm Stiffness of left ankle, not elsewhere classifiedPain in left ankle and joints of left footMuscle weakness (generalized)Other abnormalities of gait and mobilityStiffness of unspecified ankle, not elsewhere classified Apr-1 2- 8 Shahram Bill. [address] [facility], [address], [place], [address], [place]. tel:[phone] Referring Provider: Vincent Buchanan, [address] [facility] [address], [place], [address]. tel:[phone] [facility], [address], [place], [place], [address], [place] tel:[phone] Shelby Stiffness of left ankle, not elsewhere classifiedPain in left ankle and joints of left footMuscle weakness (generalized)Other abnormalities of gait and mobilityStiffness of unspecified ankle, not elsewhere classified Apr-0 9-201 8 Milly Spears. [address], [facility], . tel:[phone] Referring Provider: Vincent Buchanan, [address] [place] [address], [facility]. tel:[phone], [id number], tel:[phone] Rm Stiffness of left ankle, not elsewhere classifiedPain in left ankle and joints of left footMuscle weakness (generalized)Other abnormalities of gait and mobilityStiffness of unspecified ankle, not elsewhere classified Apr-0 5-201 8 Milly Spears. [address] [place] [address], [facility], . tel:[phone] Referring Provider: Vincent Buchanan [address] [place] [address], [facility]. tel:[phone], [place], [place], [id number], tel:[phone] Rm Stiffness of left ankle, not elsewhere classifiedPain in left ankle and joints of left footMuscle weakness (generalized)Other abnormalities of gait and mobilityStiffness of unspecified ankle, not elsewhere classified Apr-0 2-201 8 Yudi Otto. . Referring Provider: Vincent Buchanan [address] [place] [address], [facility]. tel:[phone] Family History Family Member Type Diagnosis Age At Onset No Information Payers Payer name Insurance type Covered libertarian ID Authoriza tibiran(s) [employer] EPO WC SP WC [id number] Social History Type Description Quantity Date Captured [...]
--- OUTSIDE RECORDS SUMMARY | 2024-03-14 15:25 | XMS_ITS | Encounter Summary ---
Author Organization [facility] Address [address] [place] [address] Care Team Providers Care Procedures Tech Name Role Phone Unavailable Primary Care Provider Unavailabl e Reason for Visit * Reason Onset Date Comments General 06/13/2020 Letter sent to a ssist patient in finding [facility] patient has [employer] [facility] [employer] insurance. No phone number on file Encounter Details Date Type Department Care Team (Late st Contact Info) Description 06/13/2020 Patient Outreach [facility] Outbound Calling [address] [place] [address] Provider, Abstract NO ADDRESS ON FILE General (Letter sent to assist patient in finding [facility] patient has [employer] [facility] [employer] insurance. No phone number on file) Social History Tobacco Use Types Packs/Day Years Used Date Smoking Tobacco: Never Assessed Sex and Gender Information Value Date Recorded Sex Assigned at Not on file Gender Identity Not on file Sexual Orientation Not on file documented as of this encounter Miscellaneous Notes * Telephone Encounter - Cyndy Justice - 06/13/2020 2:15 PM CDT Letter sent to assist patient in finding [facility] patient has [employer] insurance. No phone number on file documented in this encounter Plan of Treatment Not on file documented as of this encounter Visit Diagnoses Not on filedocumented in this encounter
== END 2024-03-07 12:50 | disposition home or self-care (01) ==
PROVIDERS: Emergency Provider Nurse Practitioner; PCP Clinical Nurse Specialist
DX: J06.9 Acute upper respiratory infection, unspecified (principal); Z20.822 Contact with and (suspected) exposure to COVID-19
CPT/HCPCS: 87081; 87426; 87804; 87880; 99213; G0463

== ENCOUNTER 2024-07-28 00:24 | Day surgery (SDC) | payer OTHER, SELFPAY ==
[2024-07-21 08:52] VITALS: BMI 34.7
--- OUTSIDE RECORDS SUMMARY | 2024-07-28 00:31 | XMS_ITS | Clinical Summary ---
Author Organization [facility] [address] [place] [address] Care Team Providers Care Public Health Microbiologist Name Role Phone Emmett Marrufo DO Primary Care Provider [phone] Allergies No known active allergies Medications esomeprazole DR (NexIUM) 40 mg capsule Take 40 mg by mouth daily before breakfast Active ancazejd08-mnij -Lmfolate-algal 27 mg iron-1.13 mg-581.92 mg capsule Take by mouth Active Active Problems Problem Noted Date Diagnosed Date Abnormal findings diagnostic imaging of heart and coronary circulation 10/01/2021 Encounters Date Type Department Care Team Description 06/05/2024 4:29 PM CDT - 06/05/2024 11:59 PM CDT Hospital Encounter [facility] - Imaging [address] [place] [address] Right lower quadrant pain Discharge Disposition: Discharge to home or self care from Last 3 Months Surgical History Surgery Date Site/Laterality Comments HERNIA [...] on file Legal 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 Gender Identity Not on file Sexual Orientation [...] season) 2023 04/15/2021, 06/01/2020, 05/11/2020 Influenza Vaccine (Season Ended) 2024 04/15/2021, 02/12/2020, 12/30/2016, Additional history exists DTaP/Tdap/Td Vaccine (7 - Td or Tdap) 05/25/2026 05/25/2016, 12/19/2002, 11/07/1994, Additional history exists Hepatitis B Screening Completed 08/24/1996 , 03/03/1996, 01/28/1996 HPV Vaccines Aged Out No longer eligi ble based on patient's age to complete this topic Pneumococcal vaccine <65 Aged Out No longer eligible based on patient's age to complete this topic Procedures Procedure Name Priority Date/Time Associated Diagnosis Comments CT ABDOMEN PELVIS WO CONTRAST Schedule Routine, Read Routine (OP Routine) 06/05/2024 4:48 PM CDT Right lower quadrant pain from Last 3 Months Results * CT Abdomen Pelvis WO Contrast (06/05/2024 4:48 PM CDT) Anatomical Region Laterality Modality Body N/A Computed Tomogra phy 06/06/2024 7:34 AM CDT Impressions 06/06/2024 7:34 AM CDT No acute findings. Details above. Electronically signed by: Kimani Molina M.D. Narrative 06/06/2024 7:[address] abdomen and pelvis without contrast HISTORY: Right lower quadrant abdominal pain.. TECHNIQUE: CT abdomen and pelvis was done without contrast. Please note that without IV contrast, evaluation of the vessels, solid abdominal organs, and ability to detect neoplasm and inflammation are limited. FINDINGS: There are no prior studies for correlation. Lung bases are clear. There is no acute fracture or acute bone destruction. The size of the spleen is normal. There are several calcifications in the spleen likely from old granulomatous process. The left kidney appears normal. The left adrenal gland appears normal. The right kidney appears normal. The right adrenal gland appears normal. No abnormal inflammation around the pancreas. The liver appears normal. The gallbladder is decompressed. Prior appendectomy. Likely hernia repair at the umbilicus. Clinical correlation suggested. No evidence of hernia or near the umbilicus. There is no evidence of abdominal aortic aneurysm. There is no abnormal adenopathy seen. There is no significant ascites. There is no evidence of bowel obstruction. There is no significant abnormal bowel wall thickening. Prostate and urinary bladder are within normal limits. No definite evidence of inguinal hernia on either side. No acute inflammatory changes or concerning abnormalities in the right lower quadrant. Procedure Note Kimani Molina MD - 06/06/2024 CT abdomen and pelvis without contrast HISTORY: Right lower quadrant abdominal pain.. TECHNIQUE: CT abdomen and pelvis was done without contrast. Please note that without IV contrast, evaluation of the vessels, solid abdominal organs, and ability to detect neoplasm and inflammation are limited. FINDINGS: There are no prior studies for correlation. Lung bases are clear. There is no acute fracture or acute bone destruction. The size of the spleen is normal. There are several calcifications in the spleen likely from old granulomatous process. The left kidney appears normal. The left adrenal gland appears normal. The right kidney appears normal. The right adrenal gland appears normal. No abnormal inflammation around the pancreas. The liver appears normal. The gallbladder is decompressed. Prior appendectomy. Likely hernia repair at the umbilicus. Clinical correlation suggested. No evidence of hernia or near the umbilicus. There is no evidence of abdominal aortic aneurysm. There is no abnormal adenopathy seen. There is no significant ascites. There is no evidence of bowel obstruction. There is no significant abnormal bowel wall thickening. Prostate and urinary bladder are within normal limits. No definite evidence of inguinal hernia on either side. No acute inflammatory changes or concerning abnormalities in the right lower quadrant. IMPRESSION: No acute findings. Details above. Electronically signed by: Kimani Molina M.D. Parag Truong MD IMG CT PROCEDURES F inal Result from Last 3 Months Insurance [employer] [facility] * Guarantor: DWAYNE Account Type Relation to Patient Date of Phone Billing Address [employer] [address] [place] [id number] [place] Care Teams Public Health Microbiologist Relationship Specialty Start Date End Date Emmett Marrufo DO PCP - General Internal Medicine 08/12/21
--- OUTSIDE RECORDS SUMMARY | 2024-07-28 00:31 | XMS_ITS ---
Author Organization [facility] [employer] [place] ([address]) Address [address] [place] [address] Care Team Providers Care Mysql Database Administrator Name Role Phone Teresa Srivastava Primary Care Provider Deborah Plata Unavailable [phone] Allergies No Known Allergies REASON FOR VISIT Complaints of 5 total episodes of abdominal cramping, vomiting, diarrhea and hives without clear trigger. Last in March, symptoms self-resolved after 1-2 hours. Continues carrying AIE at all times.Returning without interval episodes., Chronic upper airway symptoms concerning for uncontrolled atopic disease, mild symptoms near cats and in the Spring and Fall. ImmunoCaps negative, total IgE 141. Medications Medication SIG (Take, Route, Frequency, Duration) Notes Start Date End Date Status Esomeprazole Magnesium 40 MG 1 capsule 1/2 to 1 hour before morning meal Orally Once a day Active Famotidine 20 MG 1 tablet Orally Twic e a day for 90 days Active Montelukast Sodium 10 MG 1 tablet Orally Once a day for 90 days Active EPINEPHrine 0.3 MG/0.3ML as directed Inj ection once for 30 days Active Fish Oil Active Cetirizine HCl 10 MG 1 tablet Orally Twi ce a day for 90 days Active Multi For Him Active Social History Tobacco Use: Social History Observation Description Date Details (start date - stop date) Never Smoker NA - NA Sex Assigned At : Social History Observation Description Sex Assigned At Male Tobacco Control (Standard) Question Answer Notes Tobacco use: Nonsmoker AUDIT-C (Standard) Question Answer Notes Did you have a drink containing alcohol in the p ast year? No Points 0 Interpretation Negative Vital Signs Blood pressure systolic 107 mm Hg 07/25/19 25 Blood pressure diastolic 72 mm Hg 025 Height 72 in 07/24/2024 Weight 277.2 lbs 07/24/2024 BMI 37.59 kg/m2 07/24/2024 Oximetry 97 % 07/24/2024 Encounters Encounter Location Date Provider Diagnosis [facility] [address] [place] [address] 07/24/2024 Deborah Smallwoodjimmie Other urticaria L50. 8 ; Vomiting, unspecified R11.10 ; Hypertrophy of nasal turbinates J34.3 and Chronic rhinitis J31.0 Assessments Encounter Date Diagnosis (ICD Code) Assessment Notes Treatment Notes Treatment Clinical Notes Section Notes 07/24/2024 Other urticaria (ICD-10 - L50.8) Doug presented to his initial visit with reports of 4 episodes of abdominal pain, vomiting, diarrhea and hive formation. All episodes occurred following dairy or red meat products, however many hours after consumption. Doug was also taking ibuprofen the day of a prior episode, however recently took again without issue. No alcohol or opioid use. He does admit to various tick bites in the last few years. He is carrying an AIE at all times. Doug returns recently reporting abdominal pain and diarrhea over the weekend. He took Zyrtec, Pepcid and Singulair. He denies additional symptoms. He admits to eating more junk food than normal, he did not consume red meat. In March he reported abdominal pain, diarrhea and urticaria on his upper extremities on Wednesday. He ate pizza prior, however several hours before. He did not go to the ER, did not use his AIE. Urticaria has occurred > 6 weeks and has occurred despite high dose antihistamines. - Previously ordered laboratory work that showed elevated sedimentation rate, otherwise unremarkable. Of note, he had a hernia repair a few days prior to having labs drawn. Alpha gal panel was negative. Consider idiopathic anaphylaxis vs CIU vs other. At this time symptoms are most consistent with CIU. Repeat labs were again unremarkable. - Doug is to carry an AIE [...] attempt to prevent symptoms from occurring. Doug previously wanted to hold this medications, however later presented with another episode. He returns today off antihistamines for the last month as he was unable to obtain refills. Doug is again interested in reducing this regimen. Will hold Pepcid, continue Zyrtec BID and Singulair PM. If symptoms recur, restart Pepcid and highly consider XOLAIR. - Highly consider XOLAIR if symptoms recur, PA was sent and approved. Doug would like to hold off at this time. - Doug is to return in 2-3 months for further evaluation and management 07/24/2024 Vomiting, unspecified (ICD-10 - R11.10) See plan above 07/24/2024 Hypertrophy of nasal turbinates (ICD-10 - J34.3) Doug presents with upper airway symptoms concerning for uncontrolled atopic disease. His symptoms worsen in the Spring and Fall. He has cats and dogs in his home. - Obtained ImmunoCaps, however all negative. Total IgE 144. Discussed returning for SPT, however unable to hold antihistamines at this time. Consider in the future 07/24/2024 Chronic rhinitis (ICD-10 - J31.0) See plan above 07/24/2024 Other Plan Of Treatment Medication Medication Name Sig Start Date Stop Date Notes Famotidine 20 MG 1 tablet Orally Twic e a day for 90 days Montelukast Sodium 10 MG 1 tablet Orally Once a day for 90 days EPINEPHrine 0.3 MG/0.3ML as directed Inj ection once for 30 days Cetirizine HCl 10 MG 1 tablet Orally Twi ce a day for 90 days Treatment Notes Assessment Notes Other urticaria Doug presented to his initial visit with reports of 4 episodes of abdominal pain, vomiting, diarrhea and hive formation. All episodes occurred following dairy or red meat products, however many hours after consumption. Doug was also taking ibuprofen the day of a prior episode, however recently took again without issue. No alcohol or opioid use. He does admit to various tick bites in the last few years. He is carrying an AIE at all times. Doug returns recently reporting abdominal pain and diarrhea over the weekend. He took Zyrtec, Pepcid and Singulair. He denies additional symptoms. He admits to eating more junk food than normal, he did not consume red meat. In March he reported abdominal pain, diarrhea and urticaria on his upper extremities on Wednesday. He ate pizza prior, however several hours before. He did not go to the ER, did not use his AIE. Urticaria has occurred > 6 weeks and has occurred despite high dose antihistamines. - Previously ordered laboratory work that showed elevated sedimentation rate, otherwise unremarkable. Of note, he had a hernia repair a few days prior to having labs drawn. Alpha gal panel was negative. Consider idiopathic anaphylaxis vs CIU vs other. At this time symptoms are most consistent with CIU. Repeat labs were again unremarkable. - Doug is to carry an AIE [...] attempt to prevent symptoms from occurring. Doug previously wanted to hold this medications, however later presented with another episode. He returns today off antihistamines for the last month as he was unable to obtain refills. Doug is again interested in reducing this regimen. Will hold Pepcid, continue Zyrtec BID and Singulair PM. If symptoms recur, restart Pepcid and highly consider XOLAIR. - Highly consider XOLAIR if symptoms recur, PA was sent and approved. Doug would like to hold off at this time. - Doug is to return in 2-3 months for further evaluation and management Vomiting, unspecified See plan above Hypertrophy of nasal turbinates Doug presents with upper airway symptoms concerning for uncontrolled atopic disease. His symptoms worsen in the Spring and Fall. He has cats and dogs in his home. - Obtained ImmunoCaps, however all negative. Total IgE 144. Discussed returning for SPT, however unable to hold antihistamines at this time. Consider in the future Chronic rhinitis See plan above Next Appt Details Follow Up: 2-3 Months, Angelito n: Evaluation and Management Provider Name:Deborah escudero, 10/30/2024 09:00:00 AM, [address] [facility], [address], [place], [address], Progress Notes * Doug LOFTONDOB:1990 ( 33 yo M)Acc No.[id number]:07/24/2024 Asthma F/U Patient: Doug FLAHERTY Provider: Carlo Casey DNP [employer]-C :1990 A ge:33 Y S ex:Male Date:07/24/2024 Address:[address] [place], [place] [id number] Pcp:Teresa Srivastava Subjective: * Chief Complaints: * C omplaints of 5 total episodes of abdominal cramping, vomiting, diarrhea and hives without clear trigger. Last in March, symptoms self-resolved after 1-2 hours. Continues carrying AIE at all times. Returning without interval episodes.Chronic upper airway symptoms concerning for uncontrolled atopic disease, mild symptoms near cats and in the Spring and Fall. ImmunoCaps negative, total IgE 141. * HPI: * Introduction: I had the pleasure of seeing Jeronimo Lofton, a 33-year-old male with past medical historysignificant for GERD, on Nexium, who returns for follow-up evaluation. He is alone for today's visit. Doug presented to his initial visit reporting fourepisodes of abdominal cramping, vomiting, diarrhea and hives that have occurredover the last four years. He has an episode that occurred December 29, note, Doug had a vasectomy on December 28. He reports eating beefjerky and a [employer] in the morning, around 2 PM he ate [facility] friedchicken with macaroni and cheese. He did [...] Dougwas taking ibuprofen the day symptoms occurred, however recently took ibuprofen again without issue. He denies alcohol or opioid use. Doug [...] returned unremarkable, negative for alpha gal syndrome. The last episode occurred in March where Doug complained of abdominal cramping, diarrhea and urticaria on his upper extremities over the weekend. Prior to symptoms developing he drank a Dr. Pepper and ate pepperoni pizza from [employer], however this was a few hours prior. He denies NSAID, opioid or alcohol use. Doug was in his normal state of health at the time. He did not use his AIE, he was preparing to go to the ER however symptoms self-resolved in 1-2 hours. Doug returns today feeling well, he recently underwent a surgical repair of an inguinal hernia. Due to this recovery, he was unable to molded goods spot picker refills of his antihistamines. He has not taken these in approximately 30-days. Despite this, he denies interval episodes. Doug endorses upper airway symptoms concerning foruncontrolled atopic disease. He hascats and dogs in his home. ImmunoCaps ordered last visit that returned negative. Doug reports history of GERD, on Nexium, he had an EGDcompleted a few years ago. No other significant past medical history. 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 Today, he reports no fevers, chills, night sweats or other constitutional symptoms. * ROS: A LLERGY: runny nose N o. s cratchy throat N o. i tchy eyes N o. e ar fullness N o. s inus congestion N o. P ositive p er the HPI and history, otherwise unremarkable. S PECIAL SENSES: Positve for n one. c ataracts N o. g laucoma No. l oss of hearing N o. i tching in ears N o. r inging in ears N o. loss of balance N o. l oss of smell N o. d ry eyes N o. e xcessive tearing No. i tching eyes N o. l oss of taste N o. c onjunctivitis N o. e ar infections N o. C ONSTITUTIONAL: weight gain N o. l oss of appetite N o. f ever No. w eakness N o. w eight loss N o. f atigue N o. n ight sweats No. P ositive for n one. E NT: cold N o. c ough N o. e pistaxis N o. h earing loss N o. c hange in voice N o. s ore throat N o. r inging in ears No. s inus pain N o. P ositive p er the HPI and history, otherwise unremarkable. R ESPIRATORY: shortness of breath N o. c hest pain N o. c hest congestion N o. c ough N o. P ositive p er the HPI and history, otherwise unremakable. O PHTHALMOLOGY: diminished vision N o. e ye irritation N o. d rainage from eyes N o. b lurring of vision N o. s easonal eye sx N o. P ositive for p er the HPI and history, otherwise unremarkable. i tching N o. s ensitivity to light N o. d ischarge N o. w atering N o. s welling of the eyelids N o. r edness N o. E NDOCRINOLOGY: fatigue N o. p olydipsia N o. p olyuria N o. w eight loss N o. s leep disturbance N o. c old intolerance N o. h eat intolerance N o. d iabetes N o. P ositive for n one. C ARDIOLOGY: chest pain N o. p alpitations N o. l eg edema No. d izziness N o. s hortness of breath N o. P ositive for n one. G ASTROENTEROLOGY: dysphagia N o. a bdominal pain N o. n ausea No. v omiting N o. c onstipation N o. d iarrhea N o. b lood in stool No. i ndigestion N o. h emorrhoids N o. P ositive for n one. U ROLOGY: difficulty urinating N o. b lood in urine N o. f requent urination N o. u rinary incontinence N o. r ecurrent UTI N o. P ositive for n one. D ERMATOLOGY: rash N o. m ole N o. l umps N o. d ry or sensitive skin N o. h jose daniel (urticaria) N o. a cne N o. s kin cancer N o. P ositive for p er the HPI and history, otherwise unremakable. N EUROLOGY: headache N o. t ingling numbness Y es. s eizures N o. i nsomnia N o. m valorie loss N o. d izziness N o. g ait abnormality N o. P ositive for n one. H EMATOLOGY/LYMPH: Positive for n one. M USCULOSKELETAL: joint swelling N o. j oint pain N o. l eg cramps N o. j oint stiffness N o. s ciatica Y es. o steoporosis N o. f racture N o. c arpal tunnel N o. g out N o. P ositive for n one. P SYCHOLOGY: high stress level N o. d epression N o. s leep disturbances N o. s uicidal ideation N o. e ating disorder N o. m ental or physical abuse N o. a nxiety N o. P ositive for n one. M LAINA REPRODUCTIVE: difficulty with erection N o. d iminished sexual drive No. p enile discharge N o. i nfertility N o. A ll other review of systems per the HPI and history, otherwise unremarkable. * Medical History: * Surgical History: V asectomy 12/28/2023Inguinal hernia repair 10/10/2009ppendectomy 09/04/2012Hernia repair yst removal on right arm 01/2024 * Hospitalization/Major Diagno stic Procedure: E R for anaphylaxis 12/31/2023 * Family History: F ather: alive, Yes. M other: alive, Yes. P aternal Grand Father: Yes. P aternal Grand Mother: No. M aternal Grand Father: No. M aternal Grand Mother: No. S iblings: Yes. Children: Yes. Father- HTN Mom Hyper thyriod Brother- Levar Dieases. * Social History: M arital Status What is your marital status? m arried A lcohol Screening Do you ever drink alcoholic beverages? N o S moking Have you ever smoked tobacco: n ever smoked Additional Findings: Tobacco Non-User C urrent non-smoker, but past smoking history unknown Are you a : n ever smoker R ecreational drug use Have you ever used recreational drugs? N o D etails on consumption of certain products? Do you regularly consume products with aspartame; Equal or NutraSweet? Y es Do you regularly consume products with artificial coloring? Yes Have you ever noticed worsening of your rash with these food items? N o A re any of the following personal care products containing fragrance, dye or preservatives used regularly? Shampoo: Y es Conditioner: N o Soap: Y es Laundry Detergent: Y es Fabric Softener: Y es Deodorant: Y es Perfume, cologne, after shave: Y es Air freshners or other scented products: Y es Hair coloring dyes or rinses: N o Other: N o O ccupation Are you currenly employed? Y es Employment status? 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 number of years 9 Do you believe that your current or previous occupation has any bearing on your illness? N o Do you have any pending or planned legal action against your current or former employer which pertains to your medical illness? N o Do you anticipate that your evaluation will be used in any legal action against your current employer or former employer? N o Have you had any job with high exposure to fumes, chemicals, dust or other noxious substances? N o Are you currently a student? N o E nvironmental History Living environment: p rivate home,with pets Where is the home located? n ear any major factories or industries,suburb Age of home: 1 6 How long have you lived there? 5 years or more How many people live in the home? 6 H ome description Basement: Y es Any water damage in basement? Y es Smokers in the home? N o Smokers outside the home? N o Air Conditioning? Y es Central Air? Y es Forced air heating? Y es Gas or electric? e lectric Fireplace? Y es Used how often? w inter months only Wood burning stove? N o Do you vacuum the home? Y es Air purification systems? N o Pillow and mattress dust-proof encasings? Y es Do you use a humidifier? Y es Whole house or room? r oom humidifier Does it have a humidistat? Y es Is it used year-round, seasonal, or as needed? y ear-round Is the humidifier cleaned regularly? N o Do you own any pets? Y es What kind(s)? (click all that apply) c ats,dog Where do your pets sleep? a nywhere in the house Fabric softeners used? Y es Plants in the home? Y es How many? 3 Where are they kept? o ther room in home Is there carpeting in your bedroom? Y es Age of carpet? 1 0 Do you have [id number] carpeting? Y es What is the age of your carpeting? 1 0 What is the age of your mattress (years)? 7 What material(s) are used to manufacture your bedding and pillow? s ynthetic What is the age of your pillow (years)? 3 What material are your bedding items made of? s ynthetic Do you sleep with quilts or blankets or a duvet? Y es What material? f eather How many cats? 2 How many dogs? 1 T obacco Control (Standard) Tobacco use: N onsmoker A DEBBI-C (Standard) Did you have a drink containing alcohol in the past year? N o Points 0 Interpretation N egative * Medications: T akingFish Oil Cetirizine HCl 10 MG Tablet 1 tablet [...] List reviewed and reconciled with the patientTaking Fish Oil Taking Cetirizine HCl 10 MG Tablet 1 [...] reviewed and reconciled with the patient * Allergies: N .K.D.A.no[Allergies Verified] Objective: * Vitals: B P:107/72mm Hg, HR:78/min, Pulse Oximetry:97%, Ht: 72 in, Wt: 277.2 lbs, BMI:37.59Index. * Examination: G eneral examination: General appearance: p leasant, well-developed, well-nourished, male, i n no apparent distress, speaking in full sentences. HEENT: c onjunctiva are normal bilaterally. Oral cavity: n ormal, no lesions. Breasts : n ot performed. Heart: n ormal, RRR, S1-S2, no murmurs, no rubs, no gallops. Lungs: n ormal, clear to auscultation in all lung mojica, no wheezes, no crackles, no rhonchi. Neurologic exam: u nremarkable. Skin: n ormal, no visible rash, dermatographism, urticaria, angioedema. Back: n ormal. Extremities: n ormal ROM, no clubbing, no cyanosis, no edema. Genitalia: n ot performed. Assessment: * Assessment: 1. O ther urticaria - L50.8 (Primary) 2 . V omiting, unspecified - R11.10 3. H ypertrophy of nasal turbinates - J34.3 4 . C hronic rhinitis - J31.0 Plan: * Treatment: 2. V omiting, unspecified Notes: See plan above 3. H ypertrophy of nasal turbinates Notes: Doug presents with upper airway symptoms concerning for uncontrolled atopic disease. His symptoms worsen in the Spring and Fall. He has cats and dogs in his home. - Obtained ImmunoCaps, however all negative. Total IgE 144. Discussed returning for SPT, however unable to hold antihistamines at this time. Consider in the future 4. C hronic rhinitis Notes: See plan above * Procedure Codes: G 8427 DOC MEDS VERIFIED W/PT OR TB11200 Deborah Casey - Incident-to * Preventive Medicine: Counseling: D iet a s tolerated. E xercise C ontinue activity as usual. M edication instruction: W atch for side effects of prescribed medications, Nasal steroid/antihistamine instruction: avoid septum, Injectable epinephrine education and instruction w/ discussion of signs and symptoms of anaphylaxis and reasons to seek urgent or emergent care. E ducation: G ENERAL EDUCATION: Our staff spent an additional 30 minutes in direct contact with the patient educating them on their current diagnoses and proper treatment and prevention of symptoms and the proper use of medications. P atient education material sent to portal? Y es C are goal follow up plan Above Normal BMI Follow-up D ietary needs education * Follow Up: 2 -3 Months (Reason: Evaluation and Management) * Billing Information: * Visit Code: 26670 Office Visit, Est Pt., Level 4. Modifiers: 25 * Procedure Codes: G8427 DOC [place]IFIED W/[place]. [address] Deborah Casey - Incident-to. * Sign off status: Completed true * Provider: DENISSE Nichole-C Date: 0 07/24/2024 Generated for Ana cheema/Mona/eTransmitting on: 0 07/28/2024 12:31 AM CDT History and Physical Notes * HPI (History of Present Illness) Category Sub-Category Detail Notes Category Not es *Introduction HPI: Doug Lofton, a 33-year-old male with past medical history significant for GERD, on Nexium, who returns for follow-up evaluation. He is alone for today's visit. Doug presented to his initial visit reporting four episodes of abdominal cramping, vomiting, diarrhea and hives that have occurred over the last four years. He has an episode that occurred December 29, of note, Doug had a vasectomy on December 28. He reports eating beef jerky and a [employer] in the morning, around 2 PM he ate [facility] fried chicken with macaroni and cheese. He [...] was taking ibuprofen the day symptoms occurred, however recently took ibuprofen again without issue. He denies alcohol or opioid use. Doug [...] returned unremarkable, negative for alpha gal syndrome. The last episode occurred in March where Doug complained of abdominal cramping, diarrhea and urticaria on his upper extremities over the weekend. Prior to symptoms developing he drank a Dr. Pepper and ate pepperoni pizza from [employer], however this was a few hours prior. He denies NSAID, opioid or alcohol use. Doug was in his normal state of health at the time. He did not use his AIE, he was preparing to go to the ER however symptoms self-resolved in 1-2 hours. Doug returns today feeling well, he recently underwent a surgical repair of an inguinal hernia. Due to this recovery, he was unable to molded goods spot picker refills of his antihistamines. He has not taken these in approximately 30-days. Despite this, he denies interval episodes. Doug endorses upper airway symptoms concerning for uncontrolled atopic disease. He has cats and dogs in his home. ImmunoCaps ordered last visit that returned negative. Doug reports history of GERD, on Nexium, he had an EGD completed a few years ago. No other significant past medical history. 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 Today, he reports no fevers, chills, night sweats or other constitutional symptoms Examination Category Sub-Category Detail Notes Category Not es General examination HEENT: conjunctiva are humberto l bilaterally Heart: normal, RRR, S1-S2, no murmurs, no rubs, no gallops Lungs: normal, clear to aus cultation in all lung mojica, no wheezes, no crackles, no rhonchi Extremities: normal ROM, no clubb ing, no cyanosis, no edema General appearance: pleasant, well-devel oped, well-nourished, male, in no apparent distress, speaking in full sentences Skin: normal, no visible r yuly, dermatographism, urticaria, angioedema Neurologic exam: unremarkable Oral cavity: normal, no lesions Breasts : not performed Back: normal Genitalia: not performed
--- OUTSIDE RECORDS SUMMARY | 2024-07-28 00:31 | XMS_ITS | Referral Summary ---
Author Organization [facility] [id number] [place] [address] Care Team Providers Care Director Public Policy Name Role Phone Emmett Marrufo DO Primary Care Provider [phone]- [phone] Encounters Date Type Department Care Team Description 06/05/2024 4:29 PM CDT - 06/05/2024 11:59 PM CDT Hospital Encounter [facility] - Imaging [address] [place] [address] Right lower quadrant pain Discharge Disposition: Discharge to home or self care from Last 3 Months Allergies No known active allergies Medications esomeprazole DR (NexIUM) 40 mg capsule Take 40 mg by mouth daily before breakfast Active axfxfypy92-tndx -Lmfolate-algal 27 mg iron-1.13 mg-581.92 mg capsule Take by mouth Active Active Problems Problem Noted Date Diagnosed Date Abnormal findings diagnostic imaging of heart and coronary circulation 10/01/2021 Social History Tobacco Use Types Packs/Day Years Used Date Smoking Tobacco: Never Sex and Gender Information Value Date Recorded Sex Assigned at Not on file 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
--- OUTSIDE RECORDS SUMMARY | 2024-07-28 00:31 | XMS_ITS | Patient Health Record ---
Author Organization [facility] [place] ([address]) Address [address] [place] [address] Care Team Providers Care Lead Pl Sql Developer Name Role Phone Carola Teresa Primary Care Provider Deborah Plata Unavailable [phone] Vivi Lopez Unavailable [phone] Allergies No Known Allergies Results Component Value Reference Range Notes INTERPRETATION Reviewed date:05/15/2024 08:06:10 AM Interpretation:Interpretation Performing Lab:ROB[facility], [facility]a [facility], [address] [place], [address] Earnestine Culp MD Notes/Report: NON-FASTING INTERPRETATION Specific [...] analytical performance characteristics have been determined by [employer]. It has not been cleared or approved by the U.S. Food and Drug Administration. This assay has been validated pursuant to the CLIA regulations and is used for clinical purposes. INTERPRETATION Reviewed date:02/14/2024 03:28:25 PM Interpretation:Interpretation Performing Lab:[facility], [address] [place], [address] Earnestine Culp MD Notes/Report: NON-FASTING INTERPRETATION Specific [...] analytical performance characteristics have been determined by [employer]. It has not been cleared or approved by the U.S. Food and Drug Administration. This assay has been validated pursuant to the CLIA regulations and is used for clinical purposes. INTERPRETATION Reviewed date:02/17/2024 01:11:53 PM Interpretation:Interpretation Performing Lab:[facility]OBYN [facility], [address] [place], [address] Earnestine Culp MD Notes/Report: NON-FASTING; NON-FASTING INTERPRETATION [...] analytical performance characteristics have been determined by [employer]. It has not been cleared or approved by the U.S. Food and Drug Administration. This assay has been validated pursuant to the CLIA regulations and is used for clinical purposes. TRYPTASE Reviewed date:05/16/2024 08:20:07 AM Interpretation:Normal Performing Lab:Britta ENGEL/[facility], [address], [place], [place], Andrews Tripathi M.D.,PhD Notes/Report: NON-FASTING TRYPTASE 7.0 <11.0 mcg/L The Tryptase test, fluorescent enzyme immunoassay (FEIA), measures both the Alpha and Beta forms of Tryptase. Measuring both forms of Tryptase increases sensitivity for the diagnosis of mastocytosis, and mast cell degranulation as a cause of anaphylaxis. TRYPTASE Reviewed date:03/21/2024 12:21:09 PM Interpretation:Normal Performing Lab:[facility]O [facility], [address], [place], [place], Andrews Tripathi M.D.,PhD Notes/Report: NON-FASTING TRYPTASE 5.5 <11.0 mcg/L The Tryptase test, fluorescent enzyme immunoassay (FEIA), measures both the Alpha and Beta forms of Tryptase. Measuring both forms of Tryptase increases sensitivity for the diagnosis of mastocytosis, and mast cell degranulation as a cause of anaphylaxis. SED RATE BY MODIFIED THALIA RENDON Reviewed date:05/11/2024 08:42:27 AM Interpretation:Normal Performing Lab:ROBYN, Britta [facility]on[facility], [address] [place], [address] Earnestine Culp MD Notes/Report: NON-FASTING SED RATE BY MODIFIED ANTONY 6 < OR = 15 mm/h ALPHA GAL PANEL Reviewed date:05/15/2024 08:06:02 AM Interpretation:Normal Performing Lab:[facility], [address] [place], [address] Earnestine Culp MD Notes/Report: NON-FASTING BEEF (F27) IGE <0.10 CLASS 0 ALVARADO (F88) IGE <0.10 CLASS 0 PORK (F26) IGE <0.10 CLASS 0 GALACTOSE ALPHA 1,3 GALACTOSE IGE <0.10 <0.10 kU/L Results above 0.1 kU/L indicate an allergen-specific IgE sensitization to wfbudnxld-x-6,3-galactose, and such patients are at risk for [...] method. Additional information can be found at http://www.[employer]Sight Systems.[employer] RESPIRATORY ALLERGY PROFILE REGION VIII: [place]STEO [place] Reviewed date:02/14/2024 03:28:16 PM Interpretation:Abnormal Performing Lab:[facility], [address] [place], [address] Earnestine Culp MD Notes/Report: NON-FASTING DERMATOPHAGOIDES PTERONYSSINUS [...] ROUGH PIGWEED (W14) IGE <0.10 CLASS 0 EQUATORIAL GUINEAN THISTLE (W11) IGE <0.10 CLASS 0 ROUGH RIZO ELDER (W16) IGE <0.10 CLASS 0 MOUSE URINE PROTEINS (E72) IGE <0.10 CLASS 0 IMMUNOGLOBULIN E 141 <RC=361 kU/L CAT DANDER (E1) IGE <0.10 CLASS 0 DOG DANDER (E5) IGE <0.10 CLASS 0 CHRONIC URTICARIA Reviewed date:02/24/2024 08:10:42 AM Interpretation:Normal Performing Lab:EZ, [facility],, [address] [place], [address] America Gardner MD,PhD,[place] Notes/Report: NON-FASTING; NON-FASTING HISTAMINE RELEASE (CHRONIC URTICARIA) <16 <16 % This test was developed and its analytical performance characteristics have been determined by [employer]. It has not been cleared or approved [...] screen, a Free T4 by Dialysis (TC [address]) or T4, Total (Thyroxine) (TC [address]) should be considered. For additional information, please refer to http://education.hc1.com/faq/UCS312 (This link is being provided for informational/educational purposes only.) ANTI-IGE Reviewed date:02/24/2024 08:10:30 AM Interpretation:Normal Performing Lab:VIOLETTA [facility],, [address] [place], [address] America Gardner MD,PhD,[place] Notes/Report: NON-FASTING; NON-FASTING IGE ANTIBODY (ANTI IGE IGG) <6 <168 ng/mL This test was developed and its analytical performance characteristics have been determined by [employer]. It has not been cleared or approved by FDA. This assay has been validated pursuant to the CLIA regulations and is used for clinical purposes. TRYPTASE Reviewed date:02/16/2024 04:03:15 PM Interpretation:Normal Performing Lab:Britta ENGEL/[facility], [address], [place], [address] Andrews Tripathi M.D.,PhD Notes/Report: NON-FASTING TRYPTASE 6.0 <11.0 mcg/L The Tryptase test, fluorescent enzyme immunoassay (FEIA), measures both the Alpha and Beta forms of Tryptase. Measuring both forms of Tryptase increases sensitivity for the diagnosis of mastocytosis, and mast cell degranulation as a cause of anaphylaxis. CU PANEL Reviewed date:02/17/2024 01:11:44 PM Interpretation:Abnormal Performing Lab:[facility], [facility], [address] [place] [address], [address] Santy Ramirez Director - [address] [facility] Notes/Report: NON-FASTING; NON-FASTING BILIRUBIN, DIRECT 0.1 < [...] MPV 10.5 7.5-12.5 fL ABSOLUTE NEUTROPHILS 5350 6941-4039 cells/uL ABSOLUTE LYMPHOCYTES 2526 850-3900 cells/uL ABSOLUTE [...] Negative International Consensus on PRINCESS Patterns (https://doi.org/10.1515/c imq-4263-6155) For additional information, please refer to http://education.Global Tal[employer] Track.Xerographic Document Solutions/faq/TUP788 (This link is being provided for informational/ educational purposes only.) IMMUNOGLOBULIN A 126 47-310 mg/dL RHEUMATOID FACTOR <10 <14 IU/mL THYROGLOBULIN ANTIBODIES <1 < or = 1 IU/mL THYROID PEROXIDASE ANTIBODIES 1 <9 IU/mL ENDOMYSIAL ANTIBODY SCR (IGA) W/REFL TO TITER NEGATIVE NEGATIVE IMMUNOGLOBULIN E 132 <ZW=404 kU/L TSH W/REFLEX TO FT4 1.16 0.40-4.50 mIU/L ALPHA GAL PANEL Reviewed date:02/16/2024 04:30:15 PM Interpretation:Normal Performing Lab:[employer], [facility], [address] [place], [address] Earnestine Culp MD Notes/Report: NON-FASTING; NON-FASTING BEEF (F27) IGE <0.10 CLASS 0 ALVARADO (F88) IGE <0.10 CLASS 0 PORK (F26) IGE <0.10 CLASS 0 GALACTOSE ALPHA 1,3 GALACTOSE IGE <0.10 <0.10 kU/L Results above 0.1 kU/L indicate an allergen-specific IgE sensitization to jddcpfjkh-v-0,3-galactose, and such patients are at risk for [...] method. Additional information can be found at http://www.TimeSight Systems.com Reason For Referral No Information Medications Medication SIG (Take, Route, Frequency, Duration) Notes Start Date End Date Status Cetirizine HCl 10 MG 1 tablet Orally Twi ce a day for 90 days Active Esomeprazole Magnesium 40 MG 1 capsule 1/2 to 1 hour before morning meal Orally Once a day Active Famotidine 20 MG 1 tablet Orally Twic e a day for 90 days Active Multi For Him Active Montelukast Sodium 10 MG 1 tablet Orally Once a day for 90 days Active EPINEPHrine 0.3 MG/0.3ML as directed Inj ection once for 30 days Active Fish Oil Active Immunizations Vaccine Route Administration Date Status Comme nts Influenza Unknown 04/15/2021 Administered Portal Infor mation NOC Tdap Unknown 09/21/2023 Administered Portal Infor mation Social History Tobacco Use: Social History Observation Description Date Details (start date - stop date) Never Smoker NA - NA Sex Assigned At : Social History Observation Description Sex Assigned At Male Tobacco Control (Standard) Question Answer Notes Tobacco use: Nonsmoker AUDIT-C (Standard) Question Answer Notes Did you have a drink containing alcohol in the p ast year? No Points 0 Interpretation Negative Problems Problem Type SNOMED Code ICD Code Onset Dates Problem Status W/U Status Risk Notes Problem Chronic rhinitis (96664222) Chronic rhinitis (J31.0) Active confirmed Problem Hypertrophy of nasal turbinates (25375508) Hypertrophy of nasal turbinates (J34.3) Active confirmed Problem Urticaria (687471045) Other urticaria (L50.8) Active confirmed Problem Vomiting (643007860) Vomiting, unspecified (R11.10) Active confirmed Vital Signs Oximetry 97 % 07/24/2024 Blood pressure diastolic 72 mm Hg 07/24/2024 Height 72 in 07/24/2024 Blood pressure systolic 107 mm Hg 07/24/2024 Weight 277.2 lbs 07/24/2024 BMI 37.59 kg/m2 07/24/2024 Encounters Encounter Location Date Provider Diagnosis [facility] [address] [place] [address] 01/17/2024 Deborah Casey Other urticaria L50. 8 ; Vomiting, unspecified R11.10 ; Hypertrophy of nasal turbinates J34.3 and Chronic rhinitis J31.0 [facility] [address] [place] [address] 02/28/2024 Deborah Casey Other urticaria L50. 8 ; Vomiting, unspecified R11.10 ; Hypertrophy of nasal turbinates J34.3 and Chronic rhinitis J31.0 [facility] [address] [place] [address] 03/06/2024 Deborah Casey Other urticaria L50. 8 ; Vomiting, unspecified R11.10 ; Hypertrophy of nasal turbinates J34.3 and Chronic rhinitis J31.0 [facility] [address] [place] [address] 03/28/2024 Deborah Casey Other urticaria L50. 8 ; Vomiting, unspecified R11.10 ; Hypertrophy of nasal turbinates J34.3 ; Chronic rhinitis J31.0 and Elevated blood-pressure reading, without diagnosis of hypertension R03.0 [facility] [address] [place] [address] 05/08/2024 Deborah Casey Other urticaria L50. 8 ; Vomiting, unspecified R11.10 ; Hypertrophy of nasal turbinates J34.3 and Chronic rhinitis J31.0 [place] [address] [place] [address] 07/24/2024 Deborah Casey Other urticaria L50. 8 ; Vomiting, unspecified R11.10 ; Hypertrophy of nasal turbinates J34.3 and Chronic rhinitis J31.0 [facility] [address] [place] [address] 03/25/2024 Deborah Casey [facility] [address] [place] [address] 03/28/2024 Deborah Casey [facility] [address] [place] [address] 03/28/2024 Deborah Casey [place] [address] [place] [address] 05/08/2024 Deborah Casey Assessments Encounter Date Diagnosis (ICD Code) Assessment [...] unspecified (ICD-10 - R11.10) See plan above 03/28/2024 Other urticaria (ICD-10 - L50.8) Doug presented [...] normal, he did not consume red meat. Today, he reports abdominal pain, diarrhea and urticaria on his [...] time symptoms are most consistent with CIU. Will repeat alpha gal panel, will also repeat sedementation rate. Dr. Mariano in agreement. - Doug is to carry an AIE [...] previously wanted to hold this medications, however after most recent episode with restart regimen. Will obtain STAT tryptase if symptoms recur. Order printed. - Highly consider XOLAIR if symptoms recur, we discussed thoroughly today. Enrollment forms signed. - Doug is to return in 4 weeks for follow-up evaluation 03/28/2024 Vomiting, unspecified (ICD-10 - R11.10) See plan [...] unspecified (ICD-10 - R11.10) See plan above 01/17/2024 Other urticaria (ICD-10 - L50.8) Doug [...] unspecified (ICD-10 - R11.10) See plan above 05/08/2024 Other urticaria (ICD-10 - L50.8) Doug presented [...] normal, he did not consume red meat. Last visit he reported abdominal pain, diarrhea and urticaria [...] time symptoms are most consistent with CIU. Will repeat alpha gal panel, will also repeat sedementation rate. Dr. Mariano in agreement. Reminded Doug to have these labs drawn. - Doug is to carry an [...] previously wanted to hold this medications, however after most recent episode will continue this regimen. Will obtain STAT tryptase if symptoms recur. Order printed. No episodes of symptoms since he was last seen. - Highly consider XOLAIR if symptoms recur, PA was sent and approved. Doug would like to hold off at this time. - Doug is to return in 2-3 months for further evaluation and management 05/08/2024 Vomiting, unspecified (ICD-10 - R11.10) See plan above 05/08/2024 Hypertrophy of nasal turbinates (ICD-10 - J34.3) Doug presents with upper airway symptoms concerning for uncontrolled atopic disease. His symptoms worsen in the Spring and Fall. He has cats and dogs in his home. - Obtained ImmunoCaps, however all negative. Total IgE 144. Discussed returning for SPT, however unable to hold antihistamines at this time. Consider in the future 02/28/2024 Hypertrophy of nasal turbinates (ICD-10 - [...] above. Order sent to obtain aeroallergen ImmunoCaps 03/28/2024 Hypertrophy of nasal turbinates (ICD-10 - J34.3) Doug presents with upper airway symptoms concerning for uncontrolled atopic disease. His symptoms worsen in the Spring and Fall. He has cats and dogs in his home. - Obtained ImmunoCaps, however all negative. Total IgE 144. Discussed returning for SPT, however unable to hold antihistamines at this time. Consider in the future 03/06/2024 Hypertrophy of nasal turbinates (ICD-10 - J34.3) Doug presents with upper airway symptoms concerning for uncontrolled atopic disease. His symptoms worsen in the Spring and Fall. He has cats and dogs in his home. - Obtained ImmunoCaps, however all negative. Total IgE 144. Discussed returning for SPT, which Doug is interested in. Return in 4 weeks 07/24/2024 Hypertrophy of nasal turbinates (ICD-10 - [...] rhinitis (ICD-10 - J31.0) See plan above 03/28/2024 Chronic rhinitis (ICD-10 - J31.0) See plan above 03/06/2024 Chronic rhinitis (ICD-10 - J31.0) See plan above 02/28/2024 Chronic rhinitis (ICD-10 - J31.0) See plan above 01/17/2024 Chronic rhinitis (ICD-10 - J31.0) See plan above 05/08/2024 Chronic rhinitis (ICD-10 - J31.0) See plan above 03/28/2024 Elevated blood-pressure reading, without diagnosis of hypertension (ICD-10 - R03.0) BP elevated today without symptoms of urgency or emergency. Continue serial checks and follow-up with PCP 01/17/2024 Other 02/28/2024 Other 03/06/2024 Other 03/28/2024 Other 05/08/2024 Other 07/24/2024 Other Plan Of Treatment Next Appt Details Provider Name:Deborah escudero, 10/30/2024 09:00:00 AM, [address] [facility], [address], [place], [address], Insurance Providers Payer Name Payer Address Payer Phone Subscriber Number Group Number Insured Name Patient Relationship to Insured Coverage Start Date Coverage End Date [facility] [address] [place] [address] [id number] Doug Lofton Self - patient is the insured [employer] [address] [place] [phone] [id number] Doug Lofton Self - patient is the insured Medical (General) History Surgical History Surgery Date(Month/Year) Vasectomy 12/28/2023 Inguinal hernia repair 10/10/2009 Appendectomy 09/04/2012 Hernia repair 01/2024 Cyst removal on right arm 01/2024 Hospitalization History Reason Date(Month/Year) ER for anaphylaxis 12/31/2023
--- OUTSIDE RECORDS SUMMARY | 2024-07-28 00:31 | XMS_ITS | Clinical Summary ---
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
--- OUTSIDE RECORDS SUMMARY | 2024-07-28 00:31 | XMS_ITS | Continuity of Care Document ---
Author Organization [employer] [facility] Address [address] [place] [address] [address] [place] [address] Phone Care Team Providers Care Manager Of Enterprise Name Role Phone Regan Atkins PTA Unavailable [...] Date Provider Providers Copied on Encounter [facility], [id number], tel:[phone] [place] No Information 3 Milly Spears. [address] [place] [address], [address], Formerly named [facility], . tel:[phone] [facility] [address] [place] [address], [id number], tel:[phone] [place] No Information 3 Milly Spears. [address] [place] [address], [facility] [address], [place], Formerly named [facility], [place]. tel:[phone] Referring Provider: Teresa Srivastava, [address], [place], [address]. tel:[phone], [id number], tel:[phone] [place] No Information 3 Milly Spears. [address] [place] [address], [address], [place], [place], Formerly named [facility], . tel:[phone] Referring Provider: Teresa L[address]em[address], [place], [address]. tel:[phone] [facility] [address], [place], [place], [id number], [place] tel:[phone] [place] No Information 3 Hisky Jacobo. . Referring Provider: Teresa Carola [address], [place], [address]. tel:[phone] [facility] [address], [place], [place], [id number], [place] tel:[phone] Rm No Information 3 Hisky Jacobo. . Referring Provider: Teresamyrna Srivastava [address], [place], [address]. tel:[phone] [facility] [address], [place], [place], [id number], [place] tel:[phone] [place] No Information 3 Milly Spears. [address] [place] [address], [address], [place], [place], Formerly named [facility], . tel:[phone] Referring Provider: Teresa Lazartracy [address], [place], [address]. tel:[phone] [facility] [address], [place], [place], [id number], [place] tel:[phone] Rm No Information 3 Hisky Jacobo. . Referring Provider: Teresa Lazartracy [address], [place], [address]. tel:[phone] [facility], [place], [place], [id number], [place] tel:[phone] [place] No Information 3 Hisky Jacobo. . Referring Provider: Teresa Srivastava [address], [place], [address]. tel:[phone] [facility], [place], [place], [address], [place] tel:[phone] Rm No Information Mark- 3 Alicia Jose. . Referring Provider: Teresa Srivastava, [address], [place], [address]. tel:[phone] [facility], [place], [place], [id number], [place] tel:[phone] Rm Stiffness of left ankle, not elsewhere classifiedPain in left ankle and joints of left footMuscle weakness (generalized)Other abnormalities of gait and mobilityStiffness of unspecified ankle, not elsewhere classified Jun-2 8 Shahram Bill. [address] [facility], [facility] [address], [place], Formerly named [facility], . tel:[phone] Referring Provider: Vincent Buchanan, [address] [address], [place], [address]. tel:[phone] [facility], [place], [place], [id number], [place] tel:[phone] Rm Stiffness of left ankle, not elsewhere classifiedPain in left ankle and joints of left footMuscle weakness (generalized)Other abnormalities of gait and mobilityStiffness of unspecified ankle, not elsewhere classified Apr- 8 Milly Spears. [address] [facility], [address], [place], [place], Formerly named [facility], [place]. tel:[phone] Referring Provider: Vincent Buchanan, [address] [facility] [address], [place], [address]. tel:[phone] [facility], [place], [place], [id number], [place] tel:[phone] Rm Stiffness of left ankle, not elsewhere classifiedPain in left ankle and joints of left footMuscle weakness (generalized)Other abnormalities of gait and mobilityStiffness of unspecified ankle, not elsewhere classified Apr-1 6-201 8 Milly Spears. [address] [facility], [facility] [address], [place], Formerly named [facility], [place]. tel:[phone] Referring Provider: Vincent Buchanan, [address] [place] [address], [place], [facility]. tel:[phone] [facility], [address] [place], [place] [address], [place], [place], [id number], [place] tel:[phone] Rm Stiffness of left ankle, not elsewhere classifiedPain in left ankle and joints of left footMuscle weakness (generalized)Other abnormalities of gait and mobilityStiffness of unspecified ankle, not elsewhere classified Apr-1 2-201 8 Shahram Bill. [address] [place] [address], [address] [address], [place], Formerly named [facility], [place]. tel:[phone] Referring Provider: Vincent Buchanan, [address] [place] [address], [facility]. tel:[phone] [address], [place], [place], [id number], [place] tel:[phone] Rm Stiffness of left ankle, not elsewhere classifiedPain in left ankle and joints of left footMuscle weakness (generalized)Other abnormalities of gait and mobilityStiffness of unspecified ankle, not elsewhere classified Apr-0 9-201 8 Milly Spears. [address] [place] [address], Formerly named [facility], [place]. tel:[phone] Referring Provider: Vincent Buchanan, [address] [place] [address], [address]. tel:[phone] [address], [place], [place], [id number], [place] tel:[phone] Rm Stiffness of left ankle, not elsewhere classifiedPain in left ankle and joints of left footMuscle weakness (generalized)Other abnormalities of gait and mobilityStiffness of unspecified ankle, not elsewhere classified Apr-0 5-201 8 Milly Spears. [address] [place] [address], [facility] 105, [place], [place], Formerly named [facility], [place]. tel:[phone] Referring Provider: Vincent Buchanan, [address] [facility] [address], [place], [address]. tel:[phone] [facility] [place], [address] [facility] [address], [place], [place], [id number], [place] tel:[phone] [place] Stiffness of left ankle, not elsewhere classifiedPain in left ankle and joints of left footMuscle weakness (generalized)Other abnormalities of gait and mobilityStiffness of unspecified ankle, not elsewhere classified Apr-0 2-201 8 [place]. . Referring Provider: Vincent Buchanan, [address] [facility] [address], [place], [address]. tel:[phone] Family History Family Member Type Diagnosis Age At Onset No Information Payers Payer name Insurance type Covered libertarian ID Authoriza paulina(s) [employer] EPO WC SP WC [id number] Social History Type Description Quantity Date Captured [...]
--- OUTSIDE RECORDS SUMMARY | 2024-07-28 00:32 | XMS_ITS | Clinical Summary ---
Author Organization [facility] Address [address], [address] [address] Phone Care Team Providers Care Window Air Conditioner Installer Name Role Phone Teresa Srivastava APRN, ELECTRONIC PREPRESS SYSTEM OPERATOR Primary Care Provider Allergies No known active allergies Medications famotidine (PEPCID) 20 MG TabletIndications :Gastroesophageal reflux disease without esophagitis Take 1 Tab by mouth 2 times daily. 90 Tab 3 10/03/2018 Active Active Problems Problem Noted Date Diagnosed Date Pure hypercholesterolemia 01/28/2017 GERD (gastroesophageal reflux disease) 7 Physical exam, annual (Adult) 04/03/2016 Immunizations Immunization Administration Dates Next Due Influenza [...] 116 12/31/2023 7:45 PM CDT Temperature 36.8 C (98.2 F) 12/31/2023 4:39 PM CDT Respiratory Rate 18 12/31/2023 7:39 PM CDT [...] of 3 - 19+ 3-dose series) 12/12/2007 SARS-COV-2 Immunization ( - season) 2023 Influenza Immunization (Seas on Ended) 2024 12/30/2016, 05/25/2016 Td Immunization Every 10 Yea rs (Adults [...] to complete this topic Insurance Care Teams Window Air Conditioner Installer Relationship Specialty Start Date End Date Teresa Srivastava APRN, KRISHAN [address] [place] [address] PCP - General Advanced Practice Nurse 12/31/23
--- OUTSIDE RECORDS SUMMARY | 2024-07-28 00:32 | XMS_ITS ---
Author Organization [facility] [employer] [facility] ([address]) Address [address] [place] [address] Care Team Providers Care Top Loader Name Role Phone Teresa Srivastava Primary Care Provider Deborah Plata Unavailable [phone] Allergies No Known Allergies REASON FOR VISIT Complaints of 5 total episodes of abdominal cramping, vomiting, diarrhea and hives without clear trigger. Last in March, symptoms self-resolved after 1-2 hours. Continues carrying AIE at all times., Chronic upper airway symptoms concerning for uncontrolled atopic disease, mild symptoms near cats and in the Spring and Fall. ImmunoCaps negative, total IgE 141. Medications Medication SIG (Take, Route, Frequency, Duration) Notes Start Date End Date Status Famotidine 20 MG 1 tablet Orally Twic e a day for 90 days Active Cetirizine HCl 10 MG 1 tablet Orally Twi ce a day for 90 days Active Esomeprazole Magnesium 40 MG 1 capsule 1/2 to 1 hour before morning meal Orally Once a day Active Multi For Him Active Montelukast Sodium 10 MG 1 tablet Orally Once a day for 90 days Active EPINEPHrine 0.3 MG/0.3ML as directed Inj ection once for 30 days Active Social History Tobacco Use: Social History Observation Description Date Details (start date - stop date) Never Smoker NA - NA Sex Assigned At : Social History Observation Description Sex Assigned At Male Tobacco Control (Standard) Question Answer Notes Tobacco use: Nonsmoker Vital Signs Blood pressure systolic 119 mm Hg 05/08/19 25 Blood pressure diastolic 73 mm Hg 025 Height 72 in 05/08/2024 Weight 271.4 lbs 05/08/2024 BMI 36.8 kg/m2 05/08/2024 Oximetry 100 % 05/08/2024 Encounters Encounter Location Date Provider Diagnosis [facility] [address] [place] [address] 05/08/2024 Deborah Wilkscl Other urticaria L50. 8 ; Vomiting, unspecified R11.10 ; Hypertrophy of nasal turbinates J34.3 and Chronic rhinitis J31.0 Assessments Encounter Date Diagnosis (ICD Code) Assessment Notes Treatment Notes Treatment Clinical Notes Section Notes 05/08/2024 Other urticaria (ICD-10 - L50.8) Doug [...] at this time. Consider in the future 05/08/2024 Chronic rhinitis (ICD-10 - J31.0) See plan above 05/08/2024 Other Plan Of Treatment Medication Medication Name Sig Start Date Stop Date Notes Famotidine 20 MG 1 tablet Orally Twic e a day for 90 days Cetirizine HCl 10 MG 1 tablet Orally Twi ce a day for 90 days Montelukast Sodium [...] Next Appt Details Follow Up: 2-3 Months, Reaso n: Evaluation and Management Provider Name:Deborah escudero, 10/30/2024 09:00:00 AM, [address] [facility], [address], [place], [address], Progress Notes * Doug LOFTONDOB:1990 ( 33 yo M)Acc No.[id number]:05/08/2024 Asthma F/U Patient: Doug FLAHERTY Provider: Carlo Casey 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 Last in March, symptoms self-resolved after 1-2 hours. Continues carrying AIE at all times.Chronic upper airway symptoms concerning for uncontrolled atopic [...] 28. 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 He [...] returned unremarkable, negative for alpha gal syndrome. Doug returned last visit reporting an episode of abdominal cramping, diarrhea and urticaria on his upper extremities over the weekend. Prior to symptoms developing he drank a Dr. Pepper and ate pepperoni pizza from [employer], however this was a few hours prior. He denies NSAID, opioid or alcohol use. Doug was in his normal state of health at the time. He did not use his AIE, he was preparing to go to the ER however symptoms self-resolved in 1-2 hours. Doug is now back to taking Zyrtec BID, Pepcid BID and LTRA at night. No episodes since he was last seen. Doug endorses upper airway symptoms concerning foruncontrolled atopic disease. He hascats and dogs in his home. ImmunoCaps ordered last visit that returned negative. Doug reports history of GERD, on Nexium, he had an EGDcompleted a few years ago. No other significant past medical history. 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 Today, he reports no fevers, [...] o. P ositive for n one. M ALINA REPRODUCTIVE: difficulty with erection N o. d [...] of carpet? 1 0 Do you have tbmx-wr-bdbp carpeting? Y es What is the age [...] obacco Control (Standard) Tobacco use: N onsmoker * Medications: T akingCetirizine HCl 10 MG Tablet 1 tablet Orally [...] N .K.D.A.no[Allergies Verified] Objective: * Vitals: B P:119/73mm Hg, HR:83/min, Pulse Oximetry:100%, Ht: 72 in, Wt: 271.4 lbs, BMI:36.8Index. * Examination: G eneral examination: General appearance: p leasant, well-developed, well-nourished, male, i n no apparent distress, speaking in full sentences. HEENT: c onjunctiva are normal bilaterally, TMs without evidence of acute infection, posterior oropharynx is clear without exudates. Oral cavity: n ormal, no lesions. Breasts [...] G 8427 DOC MEDS VERIFIED W/PT OR RR58790 Deborah Casey - Incident-to * Preventive Medicine: [...] Management) * Billing Information: * Visit Code: 72068 Office Visit, Est Pt., Level 4. Modifiers: 25 * Procedure Codes: G8427 DOC MEDS VERIFIED W/[place]. [address] Deborah Casey - Incident-to. 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 [...] returned unremarkable, negative for alpha gal syndrome. Doug returned last visit reporting an episode of abdominal cramping, diarrhea and urticaria on his upper extremities over the weekend. Prior to symptoms developing he drank a Dr. Pepper and ate pepperoni pizza from [employer], however this was a few hours prior. He denies NSAID, opioid or alcohol use. Doug was in his normal state of health at the time. He did not use his AIE, he was preparing to go to the ER however symptoms self-resolved in 1-2 hours. Doug is now back to taking Zyrtec BID, Pepcid BID and LTRA at night. No episodes since he was last seen. Doug endorses upper airway symptoms concerning for uncontrolled atopic disease. He has cats and dogs in his home. ImmunoCaps ordered last visit that returned negative. Doug reports history of GERD, on Nexium, he had an EGD completed a few years ago. No other significant past medical history. 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 Today, he reports no fevers, chills, night sweats or other constitutional symptoms Examination Category Sub-Category Detail Notes Category Not es General examination HEENT: conjunctiva are normal bilaterally, TMs without evidence of acute infection, posterior oropharynx is clear without exudates Heart: normal, RRR, S1-S2, no murmurs, no [...]
--- OUTSIDE RECORDS SUMMARY | 2024-07-28 00:32 | XMS_ITS ---
Author Organization [facility] ([address]) Address [address] [place] [address] Care Team Providers Care Practice Advisor Name Role Phone Teresa Srivastava Primary Care Provider Deborah Plata [phone] REASON FOR VISIT [employer] BNB New Start - patient moved to D/C list, declined to start at this time Social History Sex Assigned At : Social History Observation Description Sex Assigned At Male Encounters Encounter Location Date Provider Diagnosis [facility] [address] [place] [address] 05/08/2024 Deborah Casey Plan Of Treatment Next Appt Details Provider Name:Deborah escudero, 10/30/2024 09:00:00 AM[facility] [address] [facility] [address], [place], [address], Progress Notes * Doug LOFTONDOB:1990 ( 33 yo M)Acc No.[id number]:05/08/2024 Patient: Sarai WHITMANDoug RASHID :1990 A ge:33 Y S ex:Male Address:[address] [place], [address] * true * Date: Generated for Printi ng/Faxing/eTransmitting on: 0 07/28/2024 12:31 AM CDT
--- OUTSIDE RECORDS SUMMARY | 2024-07-28 00:32 | XMS_ITS | Clinical Summary ---
Author Organization [facility] [employer] Address [address] [place] [address] Care Team Providers Care Packaging Machine Supplies Distributor Name Role Phone Unavailable Primary Care Provider Unavailabl e Source Comments [facility] [employer],non-owned Affiliates and Associated Physician Practices is amultiple site organization consisting of ambulatory clinics and hospital sitesin [place], [place], [place] and [place]. This disclosure is being madepursuant to the Care Everywhere program and may not contain all information available regarding this patient. Last updated 17.[facility] [employer] Allergies No known active allergies Medications * Be aware that medications may not be up to date on this document. Alwaysverify current medications with the patient. No known medications Active Problems No known active problems Immunizations Immunization Administration Dates Next Due INFLUENZA VACCINE, QUADR. (F LUZONE; FLULAVAL; FLUARIX; AFLURIA QUADRIVALENT; 6MO+), 0.5 ML (IIV4) 05/25/2016 TDAP (7yrs+) 05/25/2016 Social History Tobacco Use Types Packs/Day Years Used Date Smoking Tobacco: Never Assessed Sex and Gender Information Value Date Recorded Sex Assigned at Not on file Legal Sex Male 12:50 PM CDT Gender Identity Not on file Sexual Orientation Not on file Plan of Treatment Health Maintenance Due Date Last Done Comments HIV SCREENING 12/12/2003 HEPATITIS C SCREENING 12/07/2006 HEPATITIS B VACCINE (1 of 3 - 19+ 3-dose series) 12/12/2007 COVID-19 VACCINE (2023-2 5 season) 2023 DEPRESSION SCREENING 03/15/2024 INFLUENZA VACCINE (Season Ended) 2024 05/26/19 17 DTAP/TDAP/TD VACCINES (2 - T d or Tdap) 05/25/2026 05/25/2016 ZOSTER VACCINE (1 of 2) 2038 HIB VACCINE Aged Out No longer eligi ble based on patient's age to complete this topic HPV VACCINE Aged Out No longer eligi ble based on patient's age to complete this topic MENINGOCOCCAL (Group B) VACC INE SHARED DECISION-MAKING Aged Out No longer eligibl e based on patient's age to complete this topic MENINGOCOCCAL GROUPS A/C/Y/W VACCINE Aged Out No longer eligible b ased on patient's age to complete this topic PNEUMOCOCCAL VACCINE Aged Out No long er eligible based on patient's age to complete this topic Insurance [id number] SELF PAY NO INSURANCE Member Subscriber Plan / Payer (Ef fective for All Dates) Name:Doug Garcia Member ID:Not on file Relation to Subscriber:Not on file Name:DOUG GARCIA Subscriber ID:Not on file (Home) Address: [address] [place] [address] Payer ID:Not on file Group ID:Not on file Type:Self Pay Address: [place], [place]
[2024-07-28 09:55] VITALS: BP 117/73; PULSE 84; RESP 18; TEMP 36.3; O2SAT 98; BMI 34.4
[2024-07-28] MEDS: LACTATED RINGERS 1,000 ML 150 ML IV CONT (10:03)
--- NOTE | 2024-07-28 10:06 | WPDANESEPPF ---
Anes - Initial Pre Proc Eval Procedure: Operation Date: 07/28/24 11:00 Proposed Procedures p Esophagogastroduodenoscopy & Colonoscopy - Heber Escoto MD Date/Time: 07/28/24 10:06 Surgeon: Heber Escoto MD Pre Op Diagnosis: Gastro-esophageal reflux disease without esophagit Patient Data Age: 33 Gender: M Height: 1.88 m Weight: 121.6 kg Last Vital Signs Temp 36.3 C L 07/28/24 09:55 Pulse 84 07/28/24 09:55 Resp 18 07/28/24 09:55 BP 117/73 07/28/24 09:55 Pulse Ox 98 07/28/24 09:55 O2 Del Method Room Air 07/28/24 09:55 Allergies Allergy/AdvReac Type Severity Reaction Status Date / Time No Known Allergies Allergy Verified 07/28/24 09:53 Home Medications Medication Instructions Recorded Confirmed Type multivitamin 1 tablet PO DAILY 03/27/20 07/28/24 History Nexium 20 mg capsule,delayed 20 mg PO DAILY 3 months #90 caps 04/20/22 07/28/24 Rx release (esomeprazole magnesium) epinephrine 0.15 mg/0.3 mL 0.15 mg IM Q30M PRN anaphylaxis 03/01/24 07/21/24 History injection,auto-injector cetirizine 10 mg tablet (All Day 10 mg PO BID 05/12/24 07/21/24 History Allergy (cetirizine)) famotidine 20 mg tablet 20 mg PO BID 05/12/24 07/21/24 History montelukast 10 mg tablet 10 mg PO DAILY 05/12/24 07/21/24 History omega 7-jnl-kbj-fish oil 1,000 mg 2 cap PO BID 07/21/24 07/28/24 History (120 mg-180 mg) capsule (Fish Oil) Patient hx anesthesia problems: none Family hx anesthesia problems: none Results Review: All pre-operative results and documents have been reviewed as part of the pre-operative evaluation. [facility] Past Medical History Medical History Left inguinal hernia TRAE (obstructive sleep apnea) Abnormal echocardiogram Tachycardia Hospital discharge follow-up Encounter to establish care Fever of unknown origin (FUO) Insomnia Bronchitis Abnormal chest xray Hypersomnia Encounter for vasectomy Myalgia Bilateral leg numbness Elevated erythrocyte sedimentation rate Encounter for surgical aftercare following surgery on the digestive system Umbilical hernia Pulsatile tinnitus of right ear Sensation of fullness in both ears Hearing loss in right ear Impacted cerumen of both ears Screening for lipoid disorders Screening for metabolic disorder Hyperglycemia Obesity (BMI 35.0-39.9 without comorbidity) Inguinal hernia Asthma GERD (gastroesophageal reflux disease) Surgical History Surgical History H/O abdominal surgery H/O umbilical hernia repair 02/07/24 repair of incarcerated umbilical hernia with mesh, defect measuring [address] Archuleta H/O inguinal hernia repair right inguinal hernia repair with mesh 2009 History of appendectomy Family History Family History Father Hypertension Mother Depression Anxiety Heart problem Thyroid disorder Glaucoma Sibling Levar's disease CHF (congestive heart failure) Grandparent Cancer Social History Social History Smoking status: Never smoker Alcohol intake: current Substance use: never Do You Feel Safe in your Home?: Yes Lack of Transportation: No Lack of Food: Never True Current Housing: I Have Housing Concerned About Future Housing: No Difficulty Paying Gas/Electric Bills: No Difficulty Paying for Meds: No Currently Unemployed: No Education: Bachelor's Degree Difficulty w/ Childcare or Family Care: No Living arrangements: with family Occupation/Education: occupation 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 Informed Consent: The patient's anesthetic plan and its attendant risks and benefits were discussed with the patient/family/POA. Questions were solicited and answers provided to the satisfaction of the patient/family/POA.
--- NOTE | 2024-07-28 10:45 | PM.HPGS ---
History of Present Illness History of Present Illness Consent: Risks, benefits, and alternatives have been discussed and questions answered. Patient agrees to proceed with procedure. Chief complaint: Gastro-esophageal reflux disease without esophagit Narrative: Doug Lofton is a 33 year old male here for first egd and colonoscopy, for last 4 years he has been having this episode of anaphylaxis where he will have violent diarrhea then followed with rash, he has seen construction project coordinator and labeled as idiopathic , this will happen once a year without any warning. In between episodes he does not have GI issues Review of Systems Review of Systems: All systems reviewed & are unremarkable except as noted in HPI and below PMFSH Past Medical History Medical History Left inguinal hernia TRAE (obstructive sleep apnea) Abnormal echocardiogram Tachycardia Hospital discharge follow-up Encounter to establish care Fever of unknown origin (FUO) Insomnia Bronchitis Abnormal chest xray Hypersomnia Encounter for vasectomy Myalgia Bilateral leg numbness Elevated erythrocyte sedimentation rate Encounter for surgical aftercare following surgery on the digestive system Umbilical hernia Pulsatile tinnitus of right ear Sensation of fullness in both ears Hearing loss in right ear Impacted cerumen of both ears Screening for lipoid disorders Screening for metabolic disorder Hyperglycemia Obesity (BMI 35.0-39.9 without comorbidity) Inguinal hernia Asthma GERD (gastroesophageal reflux disease) Surgical History Surgical History H/O abdominal surgery H/O umbilical hernia repair 02/07/24 repair of incarcerated umbilical hernia with mesh, defect measuring [address] Archuleta H/O inguinal hernia repair right inguinal hernia repair with mesh 2009 History of appendectomy Family History Family History Father Hypertension Mother Depression Anxiety Heart problem Thyroid disorder Glaucoma Sibling Levar's disease CHF (congestive heart failure) Grandparent Cancer Social History Social History Smoking status: Never smoker Alcohol intake: current Substance use: never Do You Feel Safe in your Home?: Yes Lack of Transportation: No Lack of Food: Never True Current Housing: I Have Housing Concerned About Future Housing: No Difficulty Paying Gas/Electric Bills: No Difficulty Paying for Meds: No Currently Unemployed: No Education: Bachelor's Degree Difficulty w/ Childcare or Family Care: No Living arrangements: with family Occupation/Education: occupation Additional occupation/education comments: [employer] Gender identity (if verbalized by the patient): Male Spiritual care concerns: No Meds Home Medications and Allergies Home Medications Medication Instructions Recorded Confirmed Type multivitamin 1 tablet PO DAILY 03/27/20 07/28/24 History Nexium 20 mg capsule,delayed 20 mg PO DAILY 3 months #90 caps 04/20/22 07/28/24 Rx release (esomeprazole magnesium) epinephrine 0.15 mg/0.3 mL 0.15 mg IM Q30M PRN anaphylaxis 03/01/24 07/21/24 History injection,auto-injector cetirizine 10 mg tablet (All Day 10 mg PO BID 05/12/24 07/21/24 History Allergy (cetirizine)) famotidine 20 mg tablet 20 mg PO BID 05/12/24 07/21/24 History montelukast 10 mg tablet 10 mg PO DAILY 05/12/24 07/21/24 History omega 0-gdh-ndq-fish oil 1,000 mg 2 cap PO BID 07/21/24 07/28/24 History (120 mg-180 mg) capsule (Fish Oil) Allergies Allergy/AdvReac Type Severity Reaction Status Date / Time No Known Allergies Allergy Verified 07/28/24 09:53 Vital Signs Vital Signs - 24 hr 07/28/24 09:55 Temperature 97.3 F L Pulse Rate 84 Respiratory Rate 18 Blood Pressure 117/73 Pulse Oximetry 98 Oxygen Delivery Room Air Exam Const: General: comfortable and no acute distress HENMT: Face/Nose/Sinus: Normal nares present Eyes: General: appearance normal, both eyes and all related structures Neck: Neck: no JVD Resp: Auscultation: clear to auscultation bilaterally Cardio: Rate: regular rate Rhythm: regular rhythm GI: Inspection: non-distended GI Palp: Yes Soft to palpation Skin: General skin exam: normal color Neuro: General: gait normal Speech: normal speech Extrem: General: normal to inspection Psych: Mental Status: mental status grossly normal Assessment and Plan Assessment and plan (1) Diarrhea: Code(s): R19.7 - Diarrhea, unspecified Status: Acute Assessment and Plan: egd and colonoscopy
[2024-07-28 11:14] VITALS: BP 96/63; PULSE 77; RESP 18; O2SAT 98
[2024-07-28 11:24] VITALS: BP 100/65; PULSE 72; RESP 18; O2SAT 97
[2024-07-28 11:34] VITALS: BP 109/67; PULSE 73; RESP 18; O2SAT 99
== END 2024-07-28 11:50 | disposition home or self-care (01) ==
PROVIDERS: PCP Clinical Nurse Specialist; Referring Provider Clinical Nurse Specialist; Visit Provider Internal Medicine Gastroenterology
PROC: 0DJ08ZZ Inspection of Upper Intestinal Tract, Via Natural or Artificial Opening Endoscopic (ICD-10-PCS; CPT 45378; principal; 2024-07-28 11:00)
DX: K64.8 Other hemorrhoids (principal); K21.9 Gastro-esophageal reflux disease without esophagitis; G47.10 Hypersomnia, unspecified; R73.9 Hyperglycemia, unspecified; J45.909 Unspecified asthma, uncomplicated; G47.33 Obstructive sleep apnea (adult) (pediatric); R00.0 Tachycardia, unspecified; G47.00 Insomnia, unspecified; E66.9 Obesity, unspecified; Z68.34 Body mass index [BMI] 34.0-34.9, adult; Z98.890 Other specified postprocedural states; Z80.9 Family history of malignant neoplasm, unspecified; Z82.49 Family history of ischemic heart disease and other diseases of the circulatory system
CPT/HCPCS: 43239; 45380; 88305; J2704; J7120

== ENCOUNTER 2024-10-09 09:19 | Outpatient (CLI) | payer OTHER, SELFPAY ==
--- NOTE | ~2024-10-09 | CT_ITS ---
CLINICAL INDICATION: Abdominal pain COMPARISON: None. TECHNIQUE: Multiple contiguous axial images of the abdomen and pelvis were performed following the ad ministration of with 100 mL Omnipaque-350 intravenous contrast The dose-length product (DLP) was 1522.29 mGy-cm. Automated exposure control and iterative reconstruction technique were employed. FINDINGS/OBSERVATIONS: Visualized lower thorax: The bilateral lung bases are clear. The heart is of normal size, without pericardial effusion. Small hiatal hernia is present. Liver: The liver demonstrates homogeneous enhancement and is not enlarged. Gallbladder and biliary system: The gallbladder is only minimally distended, and otherwise unremarkable. Pancreas: The pancreas enhances homogeneously without ductal dilatation. Spleen: Punctate calcifications identified within the splenic parenchyma, suggesting prior granulomat ous disease. The remainder of the spleen otherwise enhances homogeneously and is not enlarged measuring 8 cm in lo ngitudinal dimension. Kidneys: The bilateral kidneys enhance symmetrically without hydronephrosis or renal calculi. Adrenal glands: Unremarkable. Gastrointestinal tract: Fecal stasis within the colon. Appendix: Surgically absent. Vasculature: Unremarkable. Lymph nodes: No pathologically enlarged or morphologically suspicious lymph nodes within the retroperitoneum or at the root of the mesentery. Pelvic structures: The bladder is only minimally distended, and otherwise unremarkable. The prostate gland is not enlarged. Body wall and musculoskeletal: Induration of the soft tissues surrounding the left groin, consistent with patient's history of recen t intervention. Induration of the soft tissues within the umbilicus, and immediately deep to the umbilicus, along the undersurface of the anterior abdominal wall, also suggesting recent intervention. No significant degenerative disease within the lower thoracic or lumbosacral spines. IMPRESSION: Postoperative change within the umbilicus and at the level of the left, consistent with patient's oth erwise, no findings within the lower chest, abdomen or pelvis, as above. Reviewed, dictated and finalized at location A. IMPRESSION: Postoperative change within the umbilicus and at the level of the left, consist ent with patient's otherwise, no findings within the lower chest, abdomen or pe lvis, as above.
--- OUTSIDE RECORDS SUMMARY | 2024-10-09 09:38 | XMS_ITS | Clinical Summary ---
Author Organization [facility] Address [address] [place] [address] Care Team Providers Care Spot Checker Name Role Phone Unavailable Primary Care Provider Unavailabl e Source Comments [facility],non-owned Affiliates and Associated Physician Practices is amultiple site organization consisting of ambulatory clinics and hospital sitesin [place], [place], [place] and [place]. This disclosure is being madepursuant to the Care Everywhere program and may not contain all information available regarding this patient. Last updated 17.[facility] Allergies No known active allergies Medications * [...] of 3 - 19+ 3-dose series) 12/12/2007 HPV VACCINE (1 - 3-dose SCDM series) 12/12/2015 COVID-19 VACCINE (2023-2 5 season) 2023 DEPRESSION SCREENING 03/15/2024 INFLUENZA VACCINE (#1) 2024 05/25/2016 DTAP/TDAP/TD VACCINES (2 - T d [...] patient's age to complete this topic Insurance [facility] [place] [place] Address: [facility] [address] [place] [address]
--- OUTSIDE RECORDS SUMMARY | 2024-10-09 09:38 | XMS_ITS | Clinical Summary ---
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
--- OUTSIDE RECORDS SUMMARY | 2024-10-09 09:38 | XMS_ITS | Referral Summary ---
Author Organization [facility] [address] [place] [id number] Care Team Providers Care Accounts Payable Processor Name Role Phone Emmett Marrufo DO Primary Care Provider +1- [phone] Allergies No known active allergies Medications esomeprazole DR (NexIUM) 40 mg capsule Take 40 mg by mouth daily before breakfast Active ejegdqbh01-doyn -Lmfolate-algal 27 mg iron-1.13 mg-581.92 mg capsule Take by mouth Active Active Problems Problem Noted Date Diagnosed Date Abnormal findings diagnostic imaging of heart and coronary circulation 10/01/2021 Social History Tobacco Use Types Packs/Day Years Used Date Smoking Tobacco: Never Sex and Gender Information Value Date Recorded Sex Assigned at Not on file 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
--- OUTSIDE RECORDS SUMMARY | 2024-10-09 09:38 | XMS_ITS | Clinical Summary ---
Author Organization [facility] Address [address], [address] [address] Phone Care Team Providers Care Intelligence Manager Name Role Phone Teresa Srivastava APRN, FORGE OPERATOR Primary Care Provider Allergies No known [...] 4:39 PM CDT Height 188 cm (6' 2) 12/31/2023 4:39 PM CDT Body Mass Index 35.31 12/31/2023 4:39 PM CDT Plan of Treatment Health Maintenance Due Date Last Done Comments Hepatitis C Virus (HCV) Screening 1988 Human Papillomavirus (HPV) Immunization (1 - Male 3-dose series) 12/12/2003 Hepatitis B Immunization (1 of 3 - 19+ 3-dose series) 12/12/2007 SARS-COV-2 Immunization () 11/14/2023 Influenza Immunization (#1) 11/13/202412/13, 05/25/2016 Td Immunization Every 10 Yea rs [...] to complete this topic Insurance Care Teams Intelligence Manager Relationship Specialty Start Date End Date Teresa Srivastava APRN, FORGE OPERATOR [address] [place] [address] PCP - General Advanced Practice Nurse 12/31/23
--- OUTSIDE RECORDS SUMMARY | 2024-10-09 09:38 | XMS_ITS | Clinical Summary ---
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 Gender Identity Not on file Sexual Orientation [...] series) 2001 Regular Well Visit/Exam 18-64 2006 HPV Vaccines (1 - 3-dose SCDM series) 12/12/2015 Covid-19 Vaccine ( season) 2023 04/15/2021, 06/01/2020, 05/11/2020 Influenza Vaccine (#1) 2024 , 02/12/2020, 12/30/2016, Additional history exists DTaP/Tdap/Td Vaccine (7 - Td or Tdap) 05/25/2026 05/25/2016, 12/19/2002, 11/07/1994, Additional history exists Hepatitis B Screening Completed 08/24/1996 , 03/03/1996, 01/28/1996 Pneumococcal vaccine <65 Aged Out No longer eligible based on patient's age to complete this topic Insurance [employer] [facility] [employer] COMPENSATION GENERIC * Guarantor: DWAYNE Account Type Relation to Patient Date of Phone Billing Address Workers [employer] [address] [place] [address] [place] Care Teams Picture Booker Relationship Specialty Start Date End Date Emmett Marrufo DO PCP - General Internal Medicine 08/12/21
== END 2024-10-09 09:20 | disposition home or self-care (01) ==
PROVIDERS: PCP Internal Medicine; Visit Provider Clinical Nurse Specialist
DX: R10.9 Unspecified abdominal pain (principal); Z87.19 Personal history of other diseases of the digestive system; Z98.890 Other specified postprocedural states
CPT/HCPCS: 74177; Q9967

== ENCOUNTER 2025-03-09 10:57 | Outpatient (CLI) | payer OTHER, SELFPAY ==
--- NOTE | ~2025-03-09 | US_ITS ---
US right upper quadrant INDICATION: Abdominal pain PROCEDURE: Realtime right upper abdominal ultrasound. COMPARISON: No prior studies for comparison. FINDINGS: The pancreas is normal without focal mass or pancreatic ductal dilation. Liver echotexture is normal without focal mass or intrahepatic biliary dilatation. There is normal directional flow in the portal vein. The gallbladder is normal without stones, gallbladder wall thickening or pericholecystic fluid. Common bile duct measures 4 mm. No sonographic Carranza's sign. IMPRESSION: 1: Normal limited abdominal ultrasound. Reviewed, dictated and finalized at location O. BUCKER
== END 2025-03-09 10:58 | disposition home or self-care (01) ==
LOC: GOSHIMG 10:58
PROVIDERS: PCP Internal Medicine; Visit Provider Clinical Nurse Specialist
DX: K21.9 Gastro-esophageal reflux disease without esophagitis (principal)
CPT/HCPCS: 76705